=== PATIENT | female | born 1965 | race Caucasian/White ===

== ENCOUNTER → 2016-10-21 | Outpatient (CLI) | payer MEDICARE, OTHER ==
--- NOTE | 2016-10-22 08:48 | MM ---
Reason for exam: additional evaluation requested from prior study. Last mammogram was performed 1 year and 1 month ago. History: Patient has history of other cancer at age 25. Family history of breast cancer in paternal grandmother. Benign US right guided VAD of the right breast, April 19, 2011. Benign cyst aspiration of the left breast, December 07, 2004. Benign cyst aspiration of the right breast, December 07, 2004. Benign ultrasound-guided cyst aspiration of the left breast, December 07, 2004. Benign ultrasound-guided cyst aspiration of the right breast, December 07, 2004. Benign ultrasound-guided cyst aspiration of the right breast, December 07, 2004. Benign ultrasound-guided cyst aspiration of the right breast, May 17, 2004. Benign ultrasound-guided cyst aspiration of the right breast, May 17, 2004. Benign excisional biopsy of the left breast, October 22, 2001. 5 cyst aspirations of the left breast. Excisional biopsy of the left breast. Physical Findings: Nurse Summary: 0.5cm nodule in the right breast at 12 o'clock and 6 o'clock and a 0.5cm nodule in the left breast at 12 o'clock (nurse dw). MG 3D Diag Mammo W/Cad NOAM Bilateral CC and MLO view(s) were taken. Prior study comparison: September 12, 2015, bilateral MG 3d diag mammo w/cad NOAM. February 17, 2014, bilateral MG diagnostic mammo w CAD NOAM. The breast tissue is extremely dense which could obscure a lesion on mammography. There are multiple nodules bilaterally. These results were verbally communicated with the patient and result sheet given to the patient on 10/21/16. ASSESSMENT: Incomplete: need additional imaging evaluation, BI-RAD 0 RECOMMENDATION: Ultrasound of both breasts.
--- NOTE | 2016-10-22 09:01 | USB ---
Reason for exam: additional evaluation requested from abnormal screening. History: Patient has history of other cancer at age 25. Family history of breast cancer in paternal grandmother. Benign US right guided VAD of the right breast, April 19, 2011. Benign cyst aspiration of the left breast, December 07, 2004. Benign cyst aspiration of the right breast, December 07, 2004. Benign ultrasound-guided cyst aspiration of the left breast, December 07, 2004. Benign ultrasound-guided cyst aspiration of the right breast, December 07, 2004. Benign ultrasound-guided cyst aspiration of the right breast, December 07, 2004. Benign ultrasound-guided cyst aspiration of the right breast, May 17, 2004. Benign ultrasound-guided cyst aspiration of the right breast, May 17, 2004. Benign excisional biopsy of the left breast, October 22, 2001. 5 cyst aspirations of the left breast. Excisional biopsy of the left breast. US Breast BILAT Right breast ultrasound including all four quadrants, the retroareolar region and axilla demonstrates a 0.9 x 0.6 x 0.7cm oval, mixed, hypoechoic lesion seen on previous at 12 o'clock, a 0.7 x 0.8 x 0.7cm oval, solid, hypoechoic lesion seen on previous at 12 o'clock, a 0.4cm oval, probable lymph node at 9 o'clock, a 0.6 x 0.5 x 0.5cm oval, cystic lesion at 11 o'clock and a 0.6 x 0.6 x 0.6cm oval, cystic lesion at 11 o'clock. Left breast ultrasound including all four quadrants, the retroareolar region and axilla demonstrates a 2.5 x 1.1 x 2.1cm oval, cystic lesion seen on previous at 12 o'clock, a 0.8 x 0.6 x 0.5cm cystic lesion seen on previous at 1 o'clock and a 1.1 x 0.5 x 0.9cm lobulated, solid lesion at 9 o'clock, new. These results were verbally communicated with the patient and result sheet given to the patient on 10/21/16. ASSESSMENT: Suspicious, BI-RAD 4 RECOMMENDATION: Ultrasound core biopsy of both breasts. (12 o'clock right breast x 2) (9 o'clock left breast) Called with mammographic findings and has scheduled an appointment for the patient for 11/07/16 at 9:[address] Jacob. Biopsy scheduled for 11/01/16 at 8 o'clock. PRELIMINARY REPORT CALLED AND FAXED TO DR. JACOB ON 10/22/16 AT 300/TP.
== END | disposition home or self-care (01) ==
LOC: RADMAMWWP 09:21
PROVIDERS: ATTEND Surgery
DX: N60.09 Solitary cyst of unspecified breast (principal); R92.2 Inconclusive mammogram
CPT/HCPCS: 76641; G0204; G0279

== ENCOUNTER → 2016-11-01 | Day surgery (SDC) | payer MEDICARE, OTHER ==
[~2016-11-01] MED LIST: BACITRACIN OINT 1 EACH PACKET TOPICAL ONE; LIDOCAINE 1% INJ 10MG/ML (20 ML MDV) ONE; LIDOCAINE 1%-EPI 1:100,000 20 ML VIAL ONE; SODIUM BICARB 4% 5 ML VIAL (0.48 MEQ/ML) ONE
--- NOTE | 2016-11-01 11:51 | USB ---
EXAMINATION TYPE: US breast aspiration ea add RT DATE OF EXAM: 11/01/2016 11:42 AM COMPARISON: Previous study dated 10/21/2016. CLINICAL HISTORY: R92.8,ABN MAMM. PHYSICIAN DOCK SUPERINTENDENT: Dr. Howard. PROCEDURE: Using standard sterile technique and ultrasound guidance 2 lesions within the right breast were localized. 1% buffered Xylocaine with and without epinephrine was used for local anesthesia. Both lesions were 12:00 in the right breast. Both lesions were aspirated for scant amount of cloudy fluid. Both lesions largely resolved. A clip was placed in both sites. The patient tolerated the procedure well. Estimated blood loss was less than 2 cc. Pathology is pending. IMPRESSION: Successful cyst aspiration of 2 lesions in the 12:00 position of the right breast. Pathology Results: Benign BREAST, RIGHT, 1:00-2:00, FINE NEEDLE ASPIRATE: DUCT EPITHELIAL CELLS AND MACROPHAGES CONSISTENT WITH FIBROCYSTIC CHANGE. RECOMMEND CLINICAL AND IMAGING CORRELATION AND FOLLOW UP INDICATED. Recommendation Follow up ultrasound of the right breast in 6 months. MOUSTAPHAD
--- NOTE | 2016-11-01 11:51 | USB ---
EXAMINATION TYPE: US breast aspiration ea add RT DATE OF EXAM: 11/01/2016 11:42 AM COMPARISON: Previous study dated 10/21/2016. CLINICAL HISTORY: R92.8,ABN MAMM. PHYSICIAN HISTOTECHNICIAN: Dr. Howard. PROCEDURE: Using standard sterile technique and ultrasound guidance 2 lesions within the right breast were localized. 1% buffered Xylocaine with and without epinephrine was used for local anesthesia. Both lesions were 12:00 in the right breast. Both lesions were aspirated for scant amount of cloudy fluid. Both lesions largely resolved. A clip was placed in both sites. The patient tolerated the procedure well. Estimated blood loss was less than 2 cc. Pathology is pending. IMPRESSION: Successful cyst aspiration of 2 lesions in the 12:00 position of the right breast. Pathology Results: Benign BREAST, RIGHT, 1:00-2:00, FINE NEEDLE ASPIRATE: DUCT EPITHELIAL CELLS AND MACROPHAGES CONSISTENT WITH FIBROCYSTIC CHANGE. RECOMMEND CLINICAL AND IMAGING CORRELATION AND FOLLOW UP INDICATED. Recommendation Follow up ultrasound of the right breast in 6 months. MOUSTAPHAD
--- NOTE | 2016-11-01 11:53 | USB ---
EXAMINATION TYPE: US biopsy breast VAD LT DATE OF EXAM: 11/01/2016 11:42 AM CLINICAL HISTORY: R92.8 ABN MAMMO. TECHNIQUE: Ultrasound guided core biopsy of the left breast. COMPARISON: Previous ultrasound dated 10/21/2016. FINDINGS: The procedure of ultrasound guided core biopsy was explained to the patient. Benefits, alternatives, and risks were discussed. An informed consent was then obtained. The patient was placed in supine positioning for imaging and for the procedure. The overlying skin was prepped and draped in usual sterile fashion. Lidocaine buffered with bicarbonate was used as anesthetic into the skin and subcutaneous tissue up to area of concern in the left breast. Under ultrasound guidance, a 12-gauge vacuum assisted biopsy gun device was used to obtain 10 core samples. Following this, a biopsy clip was left in lesion. The patient tolerated the procedure well without any immediate complication. The patient was kept in the radiology department for short stay after the procedure and then discharged home in stable condition. Pathology is pending. IMPRESSION: Successful, uncomplicated ultrasound guided core biopsy of area of concern in the left breast, full pathology results to follow. Pathology Results: Benign BREAST, LEFT, CORE BIOPSY: FIBROCYSTIC CHANGE (STROMAL FIBROSIS, CYST FORMATION , APOCRINE METAPLASIA, ADENOSIS, MILE DUCT HYPERPLASIA AND CALCIFICATIONS) WITH FIBROADENOMATOID FEATURES. Recommendation Follow up ultrasound of the left breast in 6 months. ARLENE
--- NOTE | 2016-11-01 12:07 | MM ---
EXAMINATION TYPE: Ultrasound cyst aspiration left and VAD biopsy right DATE OF EXAM: 11/01/2016 11:42 AM COMPARISON: Previous study dated 10/21/2016. CLINICAL HISTORY: R92.8,ABN MAMM. PHYSICIAN PETROLOGIST: Dr. Howard. PROCEDURE: Using standard sterile technique and ultrasound guidance 2 lesions within the right breast were localized. 1% buffered Xylocaine with and without epinephrine was used for local anesthesia. Jac th lesions were 12:00 in the right breast. Both lesions were aspirated for scant amount of cloudy flu id. Both lesions largely resolved. A clip was placed in both sites. Subsequently a VAD biopsy was performed in lesion in the 9:00 position of the left breast measuring 1 .1 cm. 10 cores were obtained. Clip was deposited. The patient tolerated the procedure well. Estimated blood loss was less than 5 cc. Pathology is pending. Postprocedure bilateral mammogram was obtained to confirm clip placement. IMPRESSION: Successful bilateral ultrasound-guided breast procedures.
== END ==
LOC: RADUSWWP 08:49
PROVIDERS: ATTEND Surgery
DX: N60.32 Fibrosclerosis of left breast (principal); N60.02 Solitary cyst of left breast; N60.82 Other benign mammary dysplasias of left breast; N60.22 Fibroadenosis of left breast; N60.92 Unspecified benign mammary dysplasia of left breast; R92.8 Other abnormal and inconclusive findings on diagnostic imaging of breast; N64.89 Other specified disorders of breast; Z88.2 Allergy status to sulfonamides; Z88.6 Allergy status to analgesic agent
CPT/HCPCS: 88305; 88173; 88342; 88341; 19000; 19001; 19083; G0204; A4648; J2001; 76942

== ENCOUNTER 2016-11-07 20:06 | Inpatient (IN) | payer MEDICARE, MEDICAID ==
[2016-11-07] MEDS ORDERED: DIPH,PERTUS(ACELL)TETVAC-LF 0.5 ML VIAL IM ONE (20:26)
--- NOTE | 2016-11-07 20:41 | ED ---
General Adult HPI - General Chief complaint: Psychiatric Symptoms Stated complaint: suicidal Time Seen by Provider: 11/07/16 20:21 Source: patient Mode of arrival: ambulatory Limitations: no limitations - History of Present Illness Initial comments: This is a 51-year-old female with a history of depression and suicide attempts in the past presents emergency department for tended suicide. The patient states that she has been very depressed because of a lot of stressors around in her life. She is being worked up for cancer and also has to take care of her father who has Alzheimer's. She states that today she felt she couldn't handle it so she tried to cut her wrist with a padded box sewer. She states that the blade was dull was not able to do it she decided to come to the emergency department for help. She has been admitted to inpatient psych previously however the last admission was 4 years ago and she states that she's been compliant with her medications. She follows up with [facility]. She denies any physical complaints. - Related Data Home Medications Medication Instructions Recorded Confirmed LORazepam [Ativan] 1 mg PO TID PRN 03/14/14 11/07/16 ARIPiprazole [Abilify] 10 mg PO HS 12/11/15 11/07/16 Vilazodone Hydrochloride [Viibryd] 40 mg PO HS 12/11/15 11/07/16 Dextroamphetamine/Amphetamine 20 mg PO QAM PRN 11/07/16 11/07/16 [Adderall Xr] Metoprolol Succinate [Toprol XL] 25 mg PO HS 11/07/16 11/07/16 Nicotine 21Mg/24Hr Patch [Habitrol 1 patch TRANSDERM DAILY 11/07/16 11/07/16 21Mg/24Hr Patch] Allergies Allergy/AdvReac Type Severity Reaction Status Date / Time peanut Allergy Unknown Verified 11/07/16 20:53 sumatriptan [From Imitrex] Allergy Swelling Verified 11/07/16 20:53 sumatriptan succinate Allergy Swelling Verified 11/07/16 20:53 [From Imitrex] Review of Systems ROS Statement: Those systems with pertinent positive or pertinent negative responses have been documented in the HPI. ROS Other: All systems not noted in ROS Statement are negative. Past Medical History Past Medical History: Musculoskeletal Disorder, Seizure Disorder Additional Past Medical History / Comment(s): LAST SEIZURE 2008, NOT CURRENTLY ON ANY MEDICATION, DDD WITH BACK PAIN., PRE-CANCER CERVICAL. History of Any Multi-Drug Resistant Organisms: None Reported Past Surgical History: Breast Surgery, Cholecystectomy, Orthopedic Surgery, Tubal Ligation, Uterine Ablation Additional Past Surgical History / Comment(s): twisted ureter, LEFT ELBOW SX, LEFT CARPAL TUNNEL Past Anesthesia/Blood Transfusion Reactions: No Reported Reaction Past Psychological History: Depression, Panic Disorder Smoking Status: Current every day smoker Past Alcohol Use History: Occasional Additional Past Alcohol Use History / Comment(s): SMOKED ON AND OFF SINCE AGE 18 , 1PPD Past Drug Use History: None Reported - Past Family History Father Family Medical History: Cancer Additional Family Medical History / Comment(s): SKIN CA General Exam - General Exam Comments Initial Comments: Constitutional: Awake alert Appears comfortable Head: Normocephalic atraumatic Eyes: no conjunctival injection No scleral icterus EOMI Neck: No JVD Supple Heart: Regular rate rhythm normal S1-S2 no murmurs Lungs: Clear to auscultation bilaterally No wheezing No rales Abdomen: Soft nondistended nontender Extremities: Non edematous DP pulses intact Radial pulses intact, abrasion to the left medial wrist Neuro: A&Ox3 No focal neurologic deficits Psych: Appropriate mood and affect Limitations: no limitations Course Vital Signs 11/07/16 20:16 Temperature 98.3 F Pulse Rate 100 Respiratory 18 Rate Blood Pressure 135/76 O2 Sat by Pulse 100 Oximetry Medical Decision Making - Medical Decision Making Patient was evaluated by EPS and they state that she requires admission. They will place the admission orders. - Lab Data Result diagrams: 11/07/16 20:45 11/07/16 20:45 Lab Results 11/07/16 11/07/16 11/07/16 Range/Units 20:35 20:45 20:45 WBC 8.4 (3.8-10.6) k/uL RBC 4.31 (3.80-5.40) m/uL Hgb 13.4 (11.4-16.0) gm/dL Hct 40.4 (34.0-46.0) % MCV 93.8 (80.0-100.0) fL MCH 31.2 (25.0-35.0) pg MCHC 33.3 (31.0-37.0) g/dL RDW 12.3 (11.5-15.5) % Plt Count 383 (150-450) k/uL Neutrophils % 51 % Lymphocytes % 41 % Monocytes % 4 % Eosinophils % 2 % Basophils % 1 % Neutrophils # 4.3 (1.3-7.7) k/uL Lymphocytes # 3.5 (1.0-4.8) k/uL Monocytes # 0.3 (0-1.0) k/uL Eosinophils # 0.1 (0-0.7) k/uL Basophils # 0.0 (0-0.2) k/uL Sodium 143 (137-145) mmol/L Potassium 3.7 (3.5-5.1) mmol/L Chloride 102 (98-107) mmol/L Carbon Dioxide 30 (22-30) mmol/L Anion Gap 11 mmol/L BUN 6 L (7-17) mg/dL Creatinine 0.67 (0.52-1.04) mg/dL Est GFR (MDRD) Af Amer >60 (>60 ml/min/1.73 sqM) Est GFR (MDRD) Non-Af >60 (>60 ml/min/1.73 sqM) Glucose 88 (74-99) mg/dL Calcium 10.1 (8.4-10.2) mg/dL Urine Color Yellow Urine Appearance Clear (Clear) Urine pH 6.0 (5.0-8.0) Ur Specific [place] 1.023 (1.001-1.035) Urine Protein Trace H (Negative) Urine Glucose (UA) Negative (Negative) Urine Ketones Negative (Negative) Urine Blood Small H (Negative) Urine Nitrite Negative (Negative) Urine Bilirubin Negative (Negative) Urine Urobilinogen 2.0 (<2.0) mg/dL Ur Leukocyte Esterase Small H (Negative) Urine RBC 19 H (0-5) /hpf Urine WBC 5 (0-5) /hpf Ur Squamous Epith Cells 1 (0-4) /hpf Urine Bacteria Occasional H (None) /hpf Urine Mucus Few H (None) /hpf Salicylates <1.0 mg/dL Urine Opiates Screen Not Detected (NotDetected) Ur Oxycodone Screen Not Detected (NotDetected) Urine Methadone Screen Not Detected (NotDetected) Ur Propoxyphene Screen Not Detected (NotDetected) Acetaminophen <10.0 ug/mL Ur Barbiturates Screen Not Detected (NotDetected) U Tricyclic Antidepress Not Detected (NotDetected) Ur Phencyclidine Scrn Not Detected (NotDetected) Ur Amphetamines Screen Not Detected (NotDetected) U Methamphetamines Scrn Not Detected (NotDetected) U Benzodiazepines Scrn Detected H (NotDetected) Urine Cocaine Screen Not Detected (NotDetected) U Marijuana (THC) Screen Not Detected (NotDetected) Disposition Clinical Impression: Suicidal ideation, Attempted suicide Disposition: [facility]MITT[facility] Condition: Stable
[2016-11-07 20:57] LABS: Appearance,Urine Clear (Clear); Bacteria,Urine Occasional /hpf; Bilirubin,Urine Negative (Negative); Glucose,Urine (UA) Negative (Negative); Ketones,Urine Negative (Negative); Leukocyte Esterase,Urine Small (Negative); Mucus,Urine Few /hpf; Nitrite,Urine Negative (Negative); Particle Count 5915; Protein,Urine Trace (Negative); RBC,Urine 19 /hpf (0-5); Specific Gravity,Urine 1.023 (1.001-1.035); Squamous Epithelial Cell,Urine 1 /hpf (0-4); UA Billing (MACRO vs. MICRO) MICRO; WBC,Urine 5 /hpf (0-5)
[2016-11-07 21:00] LABS: Basophils % (A) 1 %; CH 31.7; CHCM 33.9; Eosinophils # (A) 0.1 k/uL (0-0.7); Eosinophils % (A) 2 %; HCT 40.4 % (34.0-46.0); HDW 2.42; HGB 13.4 gm/dL (11.4-16.0); Luc # (Auto) 0.19; Luc % (Auto) 2; Lymphocytes # (A) 3.5 k/uL (1.0-4.8); Lymphocytes % (A) 41 %; MCH 31.2 pg (25.0-35.0); MCHC 33.3 g/dL (31.0-37.0); MCV 93.8 fL (80.0-100.0); Mean Platelet Volume 6.7; Monocytes # (A) 0.3 k/uL (0-1.0); Monocytes % (A) 4 %; Neutrophils # (A) 4.3 k/uL (1.3-7.7); Neutrophils % (A) 51 %; RBC 4.31 m/uL (3.80-5.40); RDW 12.3 % (11.5-15.5); WBC 8.4 k/uL (3.8-10.6); WBC (Perox) 8.46
[2016-11-07 21:17] LABS: Acetaminophen <10.0 ug/mL; Anion Gap 11 mmol/L; Blood Urea Nitrogen 6 mg/dL (7-17); Calcium 10.1 mg/dL (8.4-10.2); Carbon Dioxide 30 mmol/L (22-30); Chloride 102 mmol/L (98-107); Glucose 88 mg/dL (74-99); Non-African American GFR(MDRD) >60 (>60 ml/min/1.73 sqM); Potassium 3.7 mmol/L (3.5-5.1); Salicylate <1.0 mg/dL; Sodium 143 mmol/L (137-145)
[2016-11-08 00:08] VITALS: BMI 24.6
[2016-11-08] MEDS ORDERED: ACETAMINOPHEN TAB 325 MG TAB PO PRN (00:45)
[2016-11-08] MEDS ORDERED: MAG HYDROX/AL HYDROX/SIMETH 30 ML CUP PO PRN (00:45)
[2016-11-08] MEDS: METOPROLOL SUCCINATE (ER) 25 MG TAB.ER.24H PO SCH ×2 (01:20→21:12)
[2016-11-08] MEDS: ARIPiprazole 10 MG TAB PO SCH ×2 (01:21→21:12)
[2016-11-08] MEDS: NICOTINE 21MG/24HR PATCH TRANSDERM SCH (09:20)
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
[2016-11-08] MEDS: LORazepam 1 MG TAB PO PRN ×2 (15:36→21:59)
--- NOTE | 2016-11-08 16:27 | P.CONS ---
History of Present Illness - Reason for Consult Consult date: 11/08/16 medical management - History of Present Illness This is a 51-year-old female. Her primary care physician is [facility]. She has a past medical history of hypertension, seizure disorder last one in 2008, degenerative disc disease of the back and neck currently going to PT for left hip pain, precancerous changes to the cervical, depression, PTSD, panic disorder, tobacco use and dependence. Her last hospitalization to the mental health unit was 4 years ago. She follows with [facility]. She has a long history of depression which she states is that her whole life and has been having increased stressors and more depression. Patient tried to cut her wrists with a dull slip box changer. When this didn't work, she came in to the hospital. Patient presented to [facility] emergency center. Urinalysis clear, leukoesterase small, RBCs 19, wbc's 5. Salicylate level less than 1 and a similar event level less than 10. Urine drug screen was positive for benzodiazepines. Patient has been admitted to the mental health unit.she states that she has an appointment with the land planner next week to have an echocardiogram as her heart rate was 140 bpm and her last checkup. Review of Systems All systems: negative Constitutional: Denies chills, Denies fever Eyes: denies blurred vision, denies pain Ears, nose, mouth and throat: Denies headache, Denies sore throat Cardiovascular: Denies chest pain, Denies shortness of breath Respiratory: Denies cough Gastrointestinal: Denies abdominal pain, Denies diarrhea, Denies nausea, Denies vomiting Genitourinary: Denies dysuria, Denies hematuria Musculoskeletal: Denies myalgias Integumentary: Denies pruritus, Denies rash Neurological: Denies numbness, Denies weakness Psychiatric: Reports depression, Reports hopelessness, Reports suicidal ideation , Denies anxiety Endocrine: Denies fatigue, Denies weight change Past Medical History Past Medical History: Musculoskeletal Disorder, Seizure Disorder Additional Past Medical History / Comment(s): LAST SEIZURE 2008, NOT CURRENTLY ON ANY MEDICATION, DDD WITH BACK and NECK PAIN., PRE-CANCER CERVICAL. fibrocystic breast bilaterally under the care of Dr. Jacob History of Any Multi-Drug Resistant Organisms: None Reported Past Surgical History: Breast Surgery, Cholecystectomy, Orthopedic Surgery, Tubal Ligation, Uterine Ablation Additional Past Surgical History / Comment(s): twisted ureter, LEFT ELBOW SX, LEFT CARPAL TUNNEL, LEFT SHOULDER rotator cuffSX TWICE, Biopsy of bilaterial breast 10/2016 finding fibrocystic disease, colonoscopy 5 years ago that was normal Past Anesthesia/Blood Transfusion Reactions: No Reported Reaction Past Psychological History: Depression, Panic Disorder, PTSD Smoking Status: Current every day smoker Past Alcohol Use History: Occasional Additional Past Alcohol Use History / Comment(s): she smokes one and half packs per day and started when she was 17 years old. She states she has been using a nicotine patch for the past 8 days. She denies any medical marijuana, marijuana or street drug use. She drinks alcohol on a rare basis. Past Drug Use History: None Reported - Past Family History Father Family Medical History: Cancer, Coronary Artery Disease (CAD), Dementia Additional Family Medical History / Comment(s): father is alive at age 85 with history of Alzheimer's disease, coronary artery disease status post post 4 vessel CABG, CVA, SKIN CA Mother History Unknown: Yes Additional Family Medical History / Comment(s): Mother is alive at age 83 with history of hypertension. Son(s) Additional Family Medical History / Comment(s): patient has 2 sons and one has Depression Daughter(s) Family Medical History: No Reported History Additional Family Medical History / Comment(s): Patient has one daughter with no major medical problems. Brother(s) Additional Family Medical History / Comment(s): patient has 5 brothers. One at age 27 from suicide. One has coronary artery disease status post 2 vessel CABG. Medications and Allergies Home Medications Medication Instructions Recorded Confirmed Type LORazepam [Ativan] 1 mg PO TID PRN 03/14/14 11/07/16 History ARIPiprazole [Abilify] 10 mg PO HS 12/11/15 11/07/16 History Vilazodone Hydrochloride [Viibryd] 40 mg PO HS 12/11/15 11/07/16 History Dextroamphetamine/Amphetamine 20 mg PO QAM PRN 11/07/16 11/07/16 History [Adderall Xr] Metoprolol Succinate [Toprol XL] 25 mg PO HS 11/07/16 11/07/16 History Nicotine 21Mg/24Hr Patch [Habitrol 1 patch TRANSDERM DAILY 11/07/16 11/07/16 History 21Mg/24Hr Patch] Allergies Allergy/AdvReac Type Severity Reaction Status Date / Time peanut Allergy Swelling Verified 11/08/16 00:16 sumatriptan [From Imitrex] Allergy Swelling Verified 11/08/16 00:16 sumatriptan succinate Allergy Swelling Verified 11/08/16 00:16 [From Imitrex] Physical Exam Vitals: Vital Signs Temp Pulse Pulse Resp BP BP Pulse Ox 11/08/16 01:26 98 16 140/92 11/07/16 23:57 97.3 F L 96 16 139/98 100 11/07/16 23:38 97.6 F 80 16 145/80 98 Intake and Output 11/07/16 11/08/16 11/08/16 22:59 06:59 14:59 Other: Weight 63.134 kg Gen: This is a 51-year-old female. She is cooperative and appears to be in no acute distress. HEENT: Head is atraumatic, normocephalic. Pupils equal, round. Sclerae is anicteric. NECK: Supple. No JVD. No lymphadenopathy. No thyromegaly. LUNGS: Clear to auscultation. No wheezes or rhonchi. No intercostal retractions. HEART: Regular rate and rhythm. No murmur. ABDOMEN: Soft. Bowel sounds are present. No masses. No tenderness. EXTREMITIES: No pedal edema. No calf tenderness. NEUROLOGICAL: Patient is awake, alert and oriented x3. Cranial nerves 2 through 12 are grossly intact. Results CBC & Chem 7: 11/07/16 20:45 11/07/16 20:45 Assessment and Plan Plan: 1. Depression with suicidal ideation. Patient admitted to the mental health unit. Continue current plan of care. 2. Tobacco use and dependence. Continue nicotine patch 3. Hypertension. Continue metoprolol succinate 25 mg at bedtime. 4. History of seizure disorder with none since 2008, stable. 5. Degenerative disc disease of the back and neck, stable. Continue Tylenol for pain. Impression and plan of care have been directed as dictated by the signing physician. Sharri Gillespie nurse practitioner acting as scribe for signing physician. Time with Patient: Greater than 30
[2016-11-08] MEDS: VIIBRYD 40 MG PO SCH (21:12)
[2016-11-09] MEDS: NICOTINE 21MG/24HR PATCH TRANSDERM SCH (08:49)
[2016-11-09] MEDS: LORazepam 1 MG TAB PO PRN ×2 (09:18→21:02)
--- NOTE | 2016-11-09 13:07 | P.PN ---
Progress Note - Text Interval history: Patient is seen in cross coverage today for Dr. Jones. She reports that she is feeling better today. She is continued on Viibryd and Abilify. She reports that she had stressors of taking care of her father with Alzheimer's as well as other family stressors and also with stopping smoking. Prior to admission she had been feeling depressed and was having some thoughts of suicide. She does not voice any adverse psychotropic medication side effects and says her current medications have been helpful for her. Mental status exam: She is alert and cooperative with the interview. Her speech is fluent, not rapid or pressured. Her thought processes are organized. Her mood she describes some depression but it is doing better today. She denies any thoughts of suicide. She does not voice any thoughts of harm to others. No evidence of psychosis or agitation. Plan: We'll maintain current psychotropic medications. We'll monitor her mood and monitor regarding any suicidal ideations. Continue to cover this patient for Dr. Jones through the weekend.
[2016-11-09] MEDS: MAGNESIUM HYDROXIDE 2,400 MG/10 ML CUP PO PRN (15:41)
[2016-11-09] MEDS: METOPROLOL SUCCINATE (ER) 25 MG TAB.ER.24H PO SCH (21:01)
[2016-11-09] MEDS: VIIBRYD 40 MG PO SCH (21:01)
[2016-11-09] MEDS: ARIPiprazole 10 MG TAB PO SCH (21:01)
[2016-11-10] MEDS: NICOTINE 21MG/24HR PATCH TRANSDERM SCH (08:45)
[2016-11-10] MEDS: LORazepam 1 MG TAB PO PRN ×2 (09:22→22:08)
[2016-11-10] MEDS: MAGNESIUM HYDROXIDE 2,400 MG/10 ML CUP PO PRN (10:48)
--- NOTE | 2016-11-10 17:34 | P.PN ---
Progress Note - Text Interval history: Patient is seen in cross coverage today for Dr. Jones. She continues to report improved mood. Sleep and appetite seem to be doing well. She describes that her stress level is diminished. She plans on continuing to work with her counselor and her peer support person. She does feel like she would be ready for discharge tomorrow. Mental status exam: She is alert and cooperative with the interview. Her speech is fluent, not rapid or pressured. Thought processes organized. Her mood overall is improved. She denies any thoughts of harm to self or others. She does not verbalize any hallucinations or delusions. She does not show any agitation. Plan: Patient be maintained on current psychotropic medication regimen. Dr. Jones will resume her care starting tomorrow.
[2016-11-10] MEDS: VIIBRYD 40 MG PO SCH (21:12)
[2016-11-10] MEDS: METOPROLOL SUCCINATE (ER) 25 MG TAB.ER.24H PO SCH (21:12)
[2016-11-10] MEDS: ARIPiprazole 10 MG TAB PO SCH (21:12)
[2016-11-11 06:47] VITALS: RESP 16; TEMP 97.8
[2016-11-11] MEDS: LORazepam 1 MG TAB PO PRN (08:12)
[2016-11-11 08:14] VITALS: BP 109/69; PULSE 87
[2016-11-11] MEDS: NICOTINE 21MG/24HR PATCH TRANSDERM SCH (09:06)
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
== END 2016-11-11 12:51 | disposition home or self-care (01) | DRG 885 ==
LOC: EC 20:06 → 3MHU 23:31
PROVIDERS: ADMIT Psychiatry & Neurology Psychiatry; ATTEND Psychiatry & Neurology Psychiatry
DX: F33.9 Major depressive disorder, recurrent, unspecified (principal); G40.909 Epilepsy, unspecified, not intractable, without status epilepticus; I10 Essential (primary) hypertension; F41.0 Panic disorder [episodic paroxysmal anxiety]; F34.1 Dysthymic disorder; F43.10 Post-traumatic stress disorder, unspecified; F43.21 Adjustment disorder with depressed mood; F43.25 Adjustment disorder with mixed disturbance of emotions and conduct; N60.12 Diffuse cystic mastopathy of left breast; N60.11 Diffuse cystic mastopathy of right breast; F19.21 Other psychoactive substance dependence, in remission; F17.200 Nicotine dependence, unspecified, uncomplicated; S61.512A Laceration without foreign body of left wrist, initial encounter; Z79.899 Other long term (current) drug therapy; Z81.8 Family history of other mental and behavioral disorders; Z91.410 Personal history of adult physical and sexual abuse; Z91.5 Personal history of self-harm; Z88.8 Allergy status to other drugs, medicaments and biological substances; Z91.018 Allergy to other foods; M50.30 Other cervical disc degeneration, unspecified cervical region; G89.29 Other chronic pain; N87.9 Dysplasia of cervix uteri, unspecified; X78.1XXA Intentional self-harm by knife, initial encounter
CPT/HCPCS: 36415; 80048; 80306; 81001; 81025; 82075; 83520; 84443; 85025; 90471; 90715; 99285

== ENCOUNTER → 2017-04-03 | Outpatient (CLI) | payer MEDICARE, MEDICAID ==
--- NOTE | 2017-04-03 11:22 | MM ---
Reason for exam: follow-up at short interval from prior study. Last mammogram was performed 5 months ago. History: Patient has history of other cancer at age 25. Family history of breast cancer in paternal grandmother. Benign US breast aspiration ea add RT of the right breast, November 01, 2016. Benign US biopsy breast VAD LT of the left breast, November 01, 2016. Benign US biopsy breast VAD RT of the right breast, November 01, 2016. Benign US right guided VAD of the right breast, April 19, 2011. Benign cyst aspiration of the left breast, December 07, 2004. Benign cyst aspiration of the right breast, December 07, 2004. Benign ultrasound-guided cyst aspiration of the left breast, December 07, 2004. Benign ultrasound-guided cyst aspiration of the right breast, December 07, 2004. Benign ultrasound-guided cyst aspiration of the right breast, December 07, 2004. Benign ultrasound-guided cyst aspiration of the right breast, May 17, 2004. Benign ultrasound-guided cyst aspiration of the right breast, May 17, 2004. Benign excisional biopsy of the left breast, October 22, 2001. 5 cyst aspirations of the left breast. Excisional biopsy of the left breast. Physical Findings: Nurse did not find any significant physical abnormalities on exam. MG 3D Diag Mammo W/Cad NOAM Bilateral CC and MLO view(s) were taken. Prior study comparison: November 01, 2016, bilateral MG diagnostic johnny BI wo CAD. October 21, 2016, bilateral MG 3d diag mammo w/cad NOAM. September 12, 2015, bilateral MG 3d diag mammo w/cad NOAM. February 17, 2014, bilateral MG diagnostic mammo w CAD NOAM. The breast tissue is heterogeneously dense. This may lower the sensitivity of mammography. No significant new findings when compared with previous films. These results were verbally communicated with the patient and result sheet given to the patient on 04/03/17. ASSESSMENT: Benign, BI-RAD 2 RECOMMENDATION: Routine screening mammogram of both breasts in 1 year.
--- NOTE | 2017-04-03 11:26 | USB ---
Reason for exam: follow-up at short interval from prior study. History: Patient has history of other cancer at age 25. Family history of breast cancer in paternal grandmother. Benign US breast aspiration ea add RT of the right breast, November 01, 2016. Benign US biopsy breast VAD LT of the left breast, November 01, 2016. Benign US biopsy breast VAD RT of the right breast, November 01, 2016. Benign US right guided VAD of the right breast, April 19, 2011. Benign cyst aspiration of the left breast, December 07, 2004. Benign cyst aspiration of the right breast, December 07, 2004. Benign ultrasound-guided cyst aspiration of the left breast, December 07, 2004. Benign ultrasound-guided cyst aspiration of the right breast, December 07, 2004. Benign ultrasound-guided cyst aspiration of the right breast, December 07, 2004. Benign ultrasound-guided cyst aspiration of the right breast, May 17, 2004. Benign ultrasound-guided cyst aspiration of the right breast, May 17, 2004. Benign excisional biopsy of the left breast, October 22, 2001. 5 cyst aspirations of the left breast. Excisional biopsy of the left breast. US Breast BILAT Right breast ultrasound includes all four quadrants, the retroareolar region and axilla. Finding demonstrates a 0.5 x 0.4 x 0.3cm oval, hypoechoic lesion at 12 o'clock, a 0.3 x 0.2 x 0.3cm round, cystic lesion at 9 o'clock, a 0.4 x 0.3 x 0.3cm oval, cystic lesion at 11 o'clock, a 0.3 x 0.3 x 0.2cm oval, cystic lesion at 11 o'clock, a 0.6 x 0.5 x 0.5cm round, cystic lesion at 11 o'clock, duct ectasia at the nipple and a 0.5 x 0.5 x 0.4cm node at 9 o'clock. Left breast ultrasound includes all four quadrants, the retroareolar region and axilla. Finding demonstrates a 1.0 x 0.9 x 0.7cm oval, cystic lesion at 12 o'clock, a 0.5 x 0.4 x 0.4cm oval, hypoechoic lesion at 1 o'clock, a 0.6 x 0.5 x 0.4cm oval, cystic lesion at 2 o'clock, a 1.1 x 0.8 x 0.4cm oval, hypoechoic lesion at 9 o'clock and ductal ectasia at the nipple. These results were verbally communicated with the patient and result sheet given to the patient on 04/03/17. ASSESSMENT: Benign, BI-RAD 2 RECOMMENDATION: Routine screening mammogram of both breasts in 1 year.
== END | disposition home or self-care (01) ==
LOC: RADMAMWWP 08:38
PROVIDERS: ATTEND Surgery
DX: R92.8 Other abnormal and inconclusive findings on diagnostic imaging of breast (principal)
CPT/HCPCS: 76641; G0204; G0279

== ENCOUNTER 2017-06-11 11:23 | Inpatient (IN) | payer MEDICARE, MEDICAID ==
--- NOTE | 2017-06-11 11:33 | ED ---
General Adult HPI - General Chief complaint: Psychiatric Symptoms Stated complaint: Suicidal Time Seen by Provider: 06/11/17 11:32 Source: patient, RN notes reviewed, old records reviewed Mode of arrival: ambulatory Limitations: no limitations - History of Present Illness Initial comments: This is a 51-year-old female the ER for mental health evaluation. Patient has been under increased and significant amount of stress as of late. Patient recently lost family member is close to and is causing gluteal strength in her life. She does admit to thoughts of suicide - Related Data Home Medications Medication Instructions Recorded Confirmed Vilazodone HCl [Viibryd] 40 mg PO DAILY 12/11/15 06/11/17 Metoprolol Succinate [Toprol XL] 25 mg PO HS 11/07/16 06/11/17 Cholecalciferol [Vitamin D3] 5,000 unit PO DAILY 06/11/17 06/11/17 Fluticasone Nasal [place] [Flonase 1 - 2 spray EA NOSTRIL DAILY PRN 06/11/1706/11 Nasal [place]] Ibuprofen [Motrin] 800 mg PO Q8H PRN 06/11/17 06/11/17 Loratadine [Claritin] 10 mg PO DAILY PRN 06/11/17 06/11/17 Omeprazole [PriLOSEC] 20 mg PO AC-BRKFST 06/11/17 06/11/17 clonazePAM [KlonoPIN] 1 mg PO BID@0800,1400 06/11/17 06/11/17 clonazePAM [KlonoPIN] 2 mg PO HS 06/11/17 06/11/17 Allergies Allergy/AdvReac Type Severity Reaction Status Date / Time peanut Allergy Swelling Verified 06/11/17 11:45 sumatriptan [From Imitrex] Allergy Swelling Verified 06/11/17 11:45 sumatriptan succinate Allergy Swelling Verified 06/11/17 11:45 [From Imitrex] Review of Systems ROS Statement: Those systems with pertinent positive or pertinent negative responses have been documented in the HPI. ROS Other: All systems not noted in ROS Statement are negative. Past Medical History Past Medical History: Musculoskeletal Disorder, Seizure Disorder Additional Past Medical History / Comment(s): LAST SEIZURE 2008, NOT CURRENTLY ON ANY MEDICATION, DDD WITH BACK and NECK PAIN., PRE-CANCER CERVICAL. fibrocystic breast bilaterally under the care of Dr. Jacob History of Any Multi-Drug Resistant Organisms: None Reported Past Surgical History: Breast Surgery, Cholecystectomy, Orthopedic Surgery, Tubal Ligation, Uterine Ablation Additional Past Surgical History / Comment(s): twisted ureter, LEFT ELBOW SX, LEFT CARPAL TUNNEL, LEFT SHOULDER rotator cuffSX TWICE, Biopsy of bilaterial breast 10/2016 finding fibrocystic disease, colonoscopy 5 years ago that was normal Past Anesthesia/Blood Transfusion Reactions: No Reported Reaction Past Psychological History: Depression, Panic Disorder, PTSD Smoking Status: Current every day smoker Past Alcohol Use History: Occasional Past Drug Use History: None Reported - Past Family History Father Family Medical History: Cancer, Coronary Artery Disease (CAD), Dementia Additional Family Medical History / Comment(s): father is alive at age 85 with history of Alzheimer's disease, coronary artery disease status post post 4 vessel CABG, CVA, SKIN CA Mother History Unknown: Yes Additional Family Medical History / Comment(s): Mother is alive at age 83 with history of hypertension. Son(s) Additional Family Medical History / Comment(s): patient has 2 sons and one has Depression Daughter(s) Family Medical History: No Reported History Additional Family Medical History / Comment(s): Patient has one daughter with no major medical problems. Brother(s) Additional Family Medical History / Comment(s): patient has 5 brothers. One at age 27 from suicide. One has coronary artery disease status post 2 vessel CABG. General Exam Limitations: no limitations General appearance: alert, in no apparent distress Head exam: Present: atraumatic, normocephalic, normal inspection Eye exam: Present: normal appearance, PERRL, EOMI. Absent: scleral icterus, conjunctival injection, periorbital swelling ENT exam: Present: normal exam, mucous membranes moist Neck exam: Present: normal inspection. Absent: tenderness, meningismus, lymphadenopathy Respiratory exam: Present: normal lung sounds bilaterally. Absent: respiratory distress, wheezes, rales, rhonchi, stridor Cardiovascular Exam: Present: regular rate, normal rhythm, normal heart sounds. Absent: systolic murmur, diastolic murmur, rubs, gallop, clicks GI/Abdominal exam: Present: soft, normal bowel sounds. Absent: distended, tenderness, guarding, rebound, rigid Extremities exam: Present: normal inspection, full ROM, normal capillary refill. Absent: tenderness, pedal edema, joint swelling, calf tenderness Back exam: Present: normal inspection Neurological exam: Present: alert, oriented X3, CN II-XII intact Psychiatric exam: Present: normal affect, normal mood Skin exam: Present: warm, dry, intact, normal color. Absent: rash Course Vital Signs 06/11/17 11:28 Temperature 98.3 F Pulse Rate 85 Respiratory 18 Rate Blood Pressure 144/95 O2 Sat by Pulse 97 Oximetry - Reevaluation(s) Reevaluation #1: 06/11/17 12:01 Patient's medically clear for psychiatric evaluation Medical Decision Making - Medical Decision Making 51 seen at ER for psychiatric evaluation. Patient will be admitted for inpatient psychiatric evaluation and treatment - Lab Data Result diagrams: 06/12/17 07:27 06/12/17 07:27 Lab Results 06/11/17 06/11/17 Range/Units 11:32 11:32 Urine Opiates Screen Negative Not Detected (Negative) ng/mL Ur Oxycodone Screen Not Detected (NotDetected) Urine Methadone Screen Negative Not Detected (Negative) ng/mL Ur Propoxyphene Screen Negative Not Detected (Negative) ng/mL Ur Barbiturates Screen Not Detected (NotDetected) Urine Barbiturates Negative (Negative) ng/mL U Tricyclic Antidepress Not Detected (NotDetected) Ur Phencyclidine Scrn Negative Not Detected (Negative) ng/mL Ur Amphetamine Screen Negative (Negative) ng/mL Ur Amphetamines Screen Not Detected (NotDetected) U Methamphetamines Scrn Not Detected (NotDetected) U Benzodiazepines Scrn Negative Detected H (Negative) ng/mL Urine Cocaine Screen Negative Not Detected (Negative) ng/mL U Cannabinoids Screen Negative (Negative) ng/mL U Marijuana (THC) Screen Not Detected (NotDetected) Urine Alcohol Negative (Negative) mg/dL Disposition Clinical Impression: Attempted suicide, Dysthymic disorder, Adjustment disorder with depressed mood Disposition: TRANSFER TO PSYCH HOSP/UNIT Condition: Fair
[2017-06-11] MEDS ORDERED: MAG HYDROX/AL HYDROX/SIMETH 30 ML CUP PO PRN (15:10)
[2017-06-11] MEDS ORDERED: MAGNESIUM HYDROXIDE 2,400 MG/10 ML CUP PO PRN (15:10)
[2017-06-11] MEDS ORDERED: clonazePAM 1 MG TAB PO PRN (15:12)
[2017-06-11 15:20] VITALS: BMI 27.1
[2017-06-11] MEDS ORDERED: NICOTINE 21MG/24HR PATCH TRANSDERM STA (15:55)
[2017-06-11] MEDS: METOPROLOL SUCCINATE (ER) 25 MG TAB.ER.24H PO SCH (20:50)
[2017-06-11 20:51] VITALS: RESP 16
[2017-06-12 07:56] LABS: Basophils # (A) 0.1 k/uL (0-0.2); Basophils % (A) 1 %; CHCM 32.9; Eosinophils # (A) 0.2 k/uL (0-0.7); Eosinophils % (A) 1 %; HCT 45.5 % (34.0-46.0); HDW 2.23; HGB 14.3 gm/dL (11.4-16.0); Luc % (Auto) 2; Lymphocytes # (A) 3.7 k/uL (1.0-4.8); Lymphocytes % (A) 32 %; MCH 30.8 pg (25.0-35.0); MCHC 31.5 g/dL (31.0-37.0); MCV 97.8 fL (80.0-100.0); Mean Platelet Volume 7.3; Monocytes # (A) 0.5 k/uL (0-1.0); Monocytes % (A) 5 %; Neutrophils # (A) 6.8 k/uL (1.3-7.7); Neutrophils % (A) 59 %; RBC 4.65 m/uL (3.80-5.40); RDW 13.6 % (11.5-15.5); WBC 11.4 k/uL (3.8-10.6); WBC (Perox) 11.45
[2017-06-12 08:08] LABS: ALT 30 U/L (9-52); AST 21 U/L (14-36); Alkaline Phosphatase 85 U/L (38-126); Anion Gap 10 mmol/L; Blood Urea Nitrogen 14 mg/dL (7-17); Calcium 9.9 mg/dL (8.4-10.2); Carbon Dioxide 29 mmol/L (22-30); Chloride 103 mmol/L (98-107); Glucose 81 mg/dL (74-99); Non-African American GFR(MDRD) >60 (>60 ml/min/1.73 sqM); Potassium 4.3 mmol/L (3.5-5.1); Sodium 142 mmol/L (137-145); Total Bilirubin 0.5 mg/dL (0.2-1.3); Total Protein 7.5 g/dL (6.3-8.2)
[2017-06-12] MEDS ORDERED: VIIBRYD 40MG PO SCH (09:00)
[2017-06-12] MEDS: NICOTINE 21MG/24HR PATCH TRANSDERM SCH (09:34)
[2017-06-12] MEDS: PANTOPRAZOLE 40 MG TABLET PO SCH (09:35)
[2017-06-12] MEDS: ACETAMINOPHEN TAB 325 MG TAB PO PRN ×2 (10:36→21:56)
[2017-06-12] MEDS: VIIBRYD 40 MG PO SCH (10:59)
[2017-06-12] MEDS ORDERED: PRAZOSIN 1 MG CAP PO SCH (21:00)
[2017-06-12] MEDS: METOPROLOL SUCCINATE (ER) 25 MG TAB.ER.24H PO SCH (21:54)
[2017-06-13 06:43] VITALS: BP 125/76; PULSE 99; TEMP 97.7
[2017-06-13] MEDS: VIIBRYD 40 MG PO SCH (09:40)
[2017-06-13] MEDS: PANTOPRAZOLE 40 MG TABLET PO SCH (09:40)
[2017-06-13] MEDS: NICOTINE 21MG/24HR PATCH TRANSDERM SCH (09:40)
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
--- NOTE | 2017-06-13 21:25 | P.MDCNMH ---
History of Present Illness H&P Date: 06/12/17 Chief Complaint: Social ideation This is a 51-year-old female with a past medical history of seizure disorder came to the ER for mental health evaluation. Patient has been under increased and significant amount of stress as of late. Patient has lost close family member and has been depressed since then.. She does admit to thoughts of suicide. Currently denied any complaints of chest pain or short of breath. No nausea vomiting or abdominal pain. Denied any other problems at this time. Review of Systems Constitutional: Patient denies any fever or chills . No generalized weakness or weight loss. Abdomen: Patient denied nausea vomiting and diarrhea and abdominal pain. Cardiovascular: Patient denies any chest pain or short of breath no palpitations. Respiratory: patient denied any cough is from production. No shortness of breath Neurologic: Patient denied any numbness or tingling headache. Musculoskeletal: Patient denies any complaints of joint swelling or deformity. Skin: Negative Psychiatric: Negative Endocrine: No heat or cold intolerance. No recent weight gain. Genitourinary: No dysuria or hematuria. All other 14 point ROS negative except the above Past Medical History Past Medical History: Musculoskeletal Disorder, Seizure Disorder Additional Past Medical History / Comment(s): LAST SEIZURE 2008, NOT CURRENTLY ON ANY MEDICATION, DDD WITH BACK and NECK PAIN., PRE-CANCER CERVICAL. fibrocystic breast bilaterally under the care of Dr. Jacob History of Any Multi-Drug Resistant Organisms: None Reported Past Surgical History: Breast Surgery, Cholecystectomy, Orthopedic Surgery, Tubal Ligation, Uterine Ablation Additional Past Surgical History / Comment(s): twisted ureter, LEFT ELBOW SX, LEFT CARPAL TUNNEL, LEFT SHOULDER rotator cuffSX TWICE, Biopsy of bilaterial breast 10/2016 finding fibrocystic disease, colonoscopy 5 years ago that was normal Past Anesthesia/Blood Transfusion Reactions: No Reported Reaction Past Psychological History: Depression, Panic Disorder, PTSD Smoking Status: Current every day smoker Past Alcohol Use History: Occasional Past Drug Use History: None Reported - Past Family History Father Family Medical History: Cancer, Coronary Artery Disease (CAD), Dementia Additional Family Medical History / Comment(s): father is alive at age 85 with history of Alzheimer's disease, coronary artery disease status post post 4 vessel CABG, CVA, SKIN CA Mother History Unknown: Yes Additional Family Medical History / Comment(s): Mother is alive at age 83 with history of hypertension. Son(s) Additional Family Medical History / Comment(s): patient has 2 sons and one has Depression Daughter(s) Family Medical History: No Reported History Additional Family Medical History / Comment(s): Patient has one daughter with no major medical problems. Brother(s) Additional Family Medical History / Comment(s): patient has 5 brothers. One at age 27 from suicide. One has coronary artery disease status post 2 vessel CABG. Medications and Allergies Home Medications Medication Instructions Recorded Confirmed Type Cholecalciferol [Vitamin D3] 5,000 unit PO DAILY 06/11/17 06/11/17 History Fluticasone Nasal [place] [Flonase 1 - 2 spray EA NOSTRIL DAILY PRN 06/11/1706/11 History Nasal [place]] Loratadine [Claritin] 10 mg PO DAILY PRN 06/11/17 06/11/17 History Omeprazole [PriLOSEC] 20 mg PO AC-BRKFST 06/11/17 06/11/17 History Metoprolol Succinate [Toprol XL] 25 mg PO HS #14 tab.er.24h 06/13/17 Rx Nicotine 21Mg/24Hr Patch [Habitrol] 1 patch TRANSDERM DAILY #14 patch 06/13/17 Rx Prazosin [Minipress] 1 mg PO HS #14 cap 06/13/17 Rx Vilazodone HCl [Viibryd] 40 mg PO DAILY #14 tablet 06/13/17 Rx clonazePAM [KlonoPIN] 1 mg PO TID PRN tab 06/13/17 Rx Allergies Allergy/AdvReac Type Severity Reaction Status Date / Time peanut Allergy Swelling Verified 06/11/17 11:45 sumatriptan [From Imitrex] Allergy Swelling Verified 06/11/17 11:45 sumatriptan succinate Allergy Swelling Verified 06/11/17 11:45 [From Imitrex] Physical Exam Vitals: Vital Signs Temp Pulse Resp BP 06/13/17 06:42 97.7 F 99 16 125/76 PHYSICAL EXAMINATION: Patient is lying in the bed comfortably, no acute distress, awake alert and oriented.. HEENT: Normocephalic. Neck is supple. Pupils reactive. Nostrils clear. Oral cavity is moist. Ears reveal no drainage. Neck reveals no JVD, carotid bruits, or thyromegaly. CHEST EXAMINATION: Trachea is central. Symmetrical expansion. Lung cespedes clear to auscultation and percussion. CARDIAC: Normal S1, S2 with no gallops. No murmurs ABDOMEN: Soft. Bowel sounds normal. No organomegaly. No abdominal bruits. Extremities: reveal no edema. No clubbing or cyanosis Neurologically awake, alert, oriented x3 with well-coordinated movements. No focal deficits noted Skin: No rash or skin lesions. Psychiatric: Cooperative. Nonsuicidal Musculoskeletal: No joint swelling or deformity. Normal range of motion. Cranial Nerve Examination - Cranial Nerves Cranial Nerve I- Olfactory: Intact Cranial Nerve II- Optic: Intact Cranial Nerve III- Oculomotor: Intact Cranial Nerve IV- Trochlear: Intact Cranial Nerve V- Trigeminal: Intact Cranial Nerve - Abducens: Intact Cranial Nerve VII- Facial: Intact Cranial Nerve VIII- Auditory: Intact Cranial Nerve IX- Glossopharyngeal: Intact Cranial Nerve X- Vagus: Intact Cranial Nerve XI- Accessory: Intact Cranial Nerve XII- Hypoglossal: Intact Results CBC & Chem 7: 06/12/17 07:27 06/12/17 07:27 Assessment and Plan Assessment: #1 adjustment disorder #2 history of depression, panic disorder and PTSD #3 seizure disorder #4 history of carpal tunnel release surgery Plan: Patient will be continued on home antiepileptic medications and continue with your psychiatric evolution. We'll continue to follow closely. Further recommendations based on the clinical course. Thank you for your consult
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
== END 2017-06-13 09:33 | disposition home or self-care (01) | DRG 882 ==
LOC: EC 11:23 → 3MHU 14:20
PROVIDERS: ADMIT Psychiatry & Neurology Psychiatry; ATTEND Psychiatry & Neurology Psychiatry
DX: F43.12 Post-traumatic stress disorder, chronic (principal); R45.851 Suicidal ideations; G40.909 Epilepsy, unspecified, not intractable, without status epilepticus; F41.0 Panic disorder [episodic paroxysmal anxiety]; F17.200 Nicotine dependence, unspecified, uncomplicated; F43.21 Adjustment disorder with depressed mood; F60.3 Borderline personality disorder; N60.19 Diffuse cystic mastopathy of unspecified breast; Z62.810 Personal history of physical and sexual abuse in childhood; Z63.4 Disappearance and death of family member; Z79.899 Other long term (current) drug therapy; Z88.8 Allergy status to other drugs, medicaments and biological substances; Z82.49 Family history of ischemic heart disease and other diseases of the circulatory system
CPT/HCPCS: 80053; 80306; 82075; 84443; 85025; 99285

== ENCOUNTER → 2017-06-16 | Outpatient (CLI) | payer MEDICARE, OTHER ==
--- NOTE | 2017-06-16 08:53 | US ---
EXAMINATION TYPE: US carotid duplex BILAT DATE OF EXAM: 06/16/2017 COMPARISON: NONE CLINICAL HISTORY: R41.82 Altered mental status. Patients states sleeping and having a nightmare, unab le to talk or move after waking up. EXAM MEASUREMENTS: RIGHT: Peak Systolic Velocity (PSV) cm/sec ----- Right CCA: 108.4 ----- Right ICA: 101.8 ----- Right ECA: 113.4 ICA/CCA ratio: 0.9 RIGHT: End Diastole cm/sec ----- Right CCA: 36.9 ----- Right ICA: 40.2 ----- Right ECA: 18.9 LEFT: Peak Systolic Velocity (PSV) cm/sec ----- Left CCA: 89.7 ----- Left ICA: 89.7 ----- Left ECA: 61.6 ICA/CCA ratio: 1.0 LEFT: End Diastole cm/sec ----- Left CCA: 33.6 ----- Left ICA: 41.3 ----- Left ECA: 12.5 VERTEBRALS (direction of flow): Right Vertebral: Antegrade Left Vertebral: Antegrade Rhythm: Normal No plaque, wall thickening, elevated velocities or significant stenosis seen Grayscale images show no significant plaque at carotid bulb level. Velocity measurements and ratios a re within normal limits bilaterally. IMPRESSION: No hemodynamically significant stenosis is seen in either internal carotid artery.
--- NOTE | 2017-06-16 09:52 | MR ---
EXAMINATION TYPE: MR brain wo con DATE OF EXAM: 06/16/2017 COMPARISON: NONE HISTORY: Altered mental status CONTRAST: Performed utilizing 0 mL intravenous Gadavist gadolinium contrast. TECHNIQUE: Multiplanar, multiecho imaging on a 3.0 Billie magnet is performed through the brain. Stud y is performed within 24 hours of arrival to the hospital. The craniovertebral junction is normal. The pituitary is normal. Diffusion-weighted imaging is performed. No abnormal hyperintensity is present to suggest an acute i ntracranial infarct or acute ischemic change. Signal through the brain appears normal Ventricles and sulci are appropriate for the patient age. IMPRESSIONS: 1. No acute intracranial process
== END | disposition home or self-care (01) ==
LOC: RADMRIMAIN 07:35
PROVIDERS: ATTEND Psychiatry & Neurology Neurology
DX: R41.82 Altered mental status, unspecified (principal); Z87.898 Personal history of other specified conditions
CPT/HCPCS: 70551; 93880

== ENCOUNTER 2017-09-16 12:29 | Emergency (ER) | payer MEDICARE, OTHER ==
[2017-09-16] MEDS ORDERED: ORPHENADRINE 30 MG/ML 2 ML VIAL IVP STA (13:45)
[2017-09-16] MEDS ORDERED: SODIUM CHLORIDE 0.9% 500 ML IV STA (13:45)
[2017-09-16] MEDS ORDERED: KETOROLAC 30 MG/ML 1 ML VIAL IVP STA (13:45)
[2017-09-16] MEDS ORDERED: RX INFO: IV CONTRAST WAS GIVEN 1 EACH MISC MISCELLANE PRN (13:45)
--- NOTE | 2017-09-16 13:47 | ED ---
General Adult HPI - General Chief complaint: Abdominal Pain Stated complaint: Left Side Hip/Back Pain Time Seen by Provider: 09/16/17 13:30 Source: patient, RN notes reviewed Mode of arrival: wheelchair Limitations: no limitations - History of Present Illness Initial comments: 52-year-old female presents to the emergency department with a chief complaint of left lower quadrant abdominal pain. Patient states that this started today. She states it radiates from the back. Wraps around into her left lower quadrant. She denies any headache. There is been no nausea no vomiting no fever chills. She does have a history of back pain but she states this feels different than that. She states that there is some radiation to the buttock as well. She states that she was concerned due to the continued pain so she thought that she should be seen. Patient states that movement and positioning can help with the pain. Patient denies any recent fever, chills, shortness of breath, chest pain, nausea vomiting, numbness or tingling, dysuria or hematuria , constipation or diarrhea, headaches or visual changes, or any other current symptoms. - Related Data Home Medications Medication Instructions Recorded Confirmed Cholecalciferol [Vitamin D3] 5,000 unit PO DAILY 06/11/17 09/16/17 Fluticasone Nasal [place] [Flonase 1 spray EA NOSTRIL DAILY 06/11/17 09/16/17 Nasal [place]] Loratadine [Claritin] 10 mg PO DAILY PRN 06/11/17 09/16/17 Omeprazole [PriLOSEC] 20 mg PO AC-BRKFST 06/11/17 09/16/17 Cyanocobalamin [Vitamin B-12 2,000 mcg SQ Q84D 09/16/17 09/16/17 Injection] Lisinopril [Zestril] 20 mg PO DAILY 09/16/17 09/16/17 Metoprolol Succinate [Toprol XL] 25 mg PO DAILY 09/16/17 09/16/17 OLANZapine [ZyPREXA] 5 mg PO HS 09/16/17 09/16/17 clonazePAM [KlonoPIN] 0.5 mg PO BID 09/16/17 09/16/17 clonazePAM [KlonoPIN] 2 mg PO HS 09/16/17 09/16/17 Previous Rx's Medication Instructions Recorded Vilazodone HCl [Viibryd] 40 mg PO DAILY #14 tablet 06/13/17 Ibuprofen [Motrin] 600 mg PO Q6HR PRN #20 tab 09/16/17 Orphenadrine [Norflex] 100 mg PO Q12H #10 tablet.er 09/16/17 predniSONE 50 mg PO DAILY #5 tab 09/16/17 Allergies Allergy/AdvReac Type Severity Reaction Status Date / Time peanut Allergy Anaphylaxis Verified 09/16/17 14:26 Sulfa (Sulfonamide Allergy Unknown Verified 09/16/17 14:26 Antibiotics) sumatriptan [From Imitrex] Allergy Anaphylaxis Verified 09/16/17 14:26 sumatriptan succinate Allergy Anaphylaxis Verified 09/16/17 14:26 [From Imitrex] Review of Systems ROS Statement: Those systems with pertinent positive or pertinent negative responses have been documented in the HPI. ROS Other: All systems not noted in ROS Statement are negative. Past Medical History Past Medical History: Musculoskeletal Disorder, Seizure Disorder Additional Past Medical History / Comment(s): LAST SEIZURE 2008, NOT CURRENTLY ON ANY MEDICATION, DDD WITH BACK and NECK PAIN., PRE-CANCER CERVICAL. fibrocystic breast bilaterally under the care of Dr. Jacob History of Any Multi-Drug Resistant Organisms: None Reported Past Surgical History: Breast Surgery, Cholecystectomy, Orthopedic Surgery, Tubal Ligation, Uterine Ablation Additional Past Surgical History / Comment(s): twisted ureter, LEFT ELBOW SX, LEFT CARPAL TUNNEL, LEFT SHOULDER rotator cuffSX TWICE, Biopsy of bilaterial breast 10/2016 finding fibrocystic disease, colonoscopy 5 years ago that was normal Past Anesthesia/Blood Transfusion Reactions: No Reported Reaction Past Psychological History: Depression, Panic Disorder, PTSD Smoking Status: Current every day smoker Past Alcohol Use History: Occasional Past Drug Use History: None Reported - Past Family History Father Family Medical History: Cancer, Coronary Artery Disease (CAD), Dementia Additional Family Medical History / Comment(s): father is alive at age 85 with history of Alzheimer's disease, coronary artery disease status post post 4 vessel CABG, CVA, SKIN CA Mother History Unknown: Yes Additional Family Medical History / Comment(s): Mother is alive at age 83 with history of hypertension. Son(s) Additional Family Medical History / Comment(s): patient has 2 sons and one has Depression Daughter(s) Family Medical History: No Reported History Additional Family Medical History / Comment(s): Patient has one daughter with no major medical problems. Brother(s) Additional Family Medical History / Comment(s): patient has 5 brothers. One at age 27 from suicide. One has coronary artery disease status post 2 vessel CABG. General Exam - General Exam Comments Initial Comments: General: The patient is awake and alert, in no distress, and does not appear acutely ill. Eye: Pupils are equal, round and reactive to light, extra-ocular movements are intact; there is normal conjunctiva bilaterally. No signs of icterus. Ears, nose, mouth and throat: There are moist mucous membranes. Neck: The neck is supple, there is no tenderness. Cardiovascular: There is a regular rate and rhythm. No murmur, rub or gallop is appreciated. Respiratory: Lungs are clear to auscultation, respirations are non-labored, breath sounds are equal. No wheezes, stridor, rales, or rhonchi. Gastrointestinal: Soft, non-distended, mild tenderness in left lateral aspect of the abdomen without masses or organomegaly noted. There is no rebound or guarding present. No CVA tenderness. Bowel sounds are unremarkable. Back: There is no tenderness to palpation in the midline. There is no obvious deformity. No rashes noted. Musculoskeletal: Normal ROM, no tenderness, There is no pedal edema. There is no calf tenderness or swelling. Sensation intact. Pulses equal bilaterally 2+. Neurological: CN II-XII intact, There are no obvious motor or sensory deficits. Coordination appears grossly intact. Speech is normal. Skin: Skin is warm and dry and no rashes or lesions are noted. Psychiatric: Cooperative, appropriate mood & affect, normal judgment. Limitations: no limitations Course Vital Signs 09/16/17 09/16/17 13:02 14:49 Temperature 97.8 F 98 F Pulse Rate 86 78 Respiratory 17 18 Rate Blood Pressure 112/64 126/67 O2 Sat by Pulse 98 99 Oximetry Medical Decision Making - Medical Decision Making 52-year-old female presents for left-sided abdominal pain. At this time patient 's abdomen CT as well as lab work is been reviewed. The pain is positional does radiate into the back and leg and she has a history of degenerative disc disease there is suspicion this pain may be originating from the back. Other workup otherwise does not show an acute cause. At this time we did discuss that we will start her on steroids muscle axes for home as well as pain medication. We did discuss follow-up with or so and give their information. We did discuss using the exercises we give her provided and return parameters. Patient stated that she understood and she is in agreement with this plan. All questions have been answered. This time the patient will be discharged home. - Lab Data Result diagrams: 09/16/17 13:56 09/16/17 13:56 Lab Results 09/16/17 09/16/17 09/16/17 Range/Units 13:56 13:56 14:48 WBC 10.5 (3.8-10.6) k/uL RBC 4.27 (3.80-5.40) m/uL Hgb 13.2 (11.4-16.0) gm/dL Hct 39.5 (34.0-46.0) % MCV 92.4 (80.0-100.0) fL MCH 30.9 (25.0-35.0) pg MCHC 33.5 (31.0-37.0) g/dL RDW 12.4 (11.5-15.5) % Plt Count 377 (150-450) k/uL Neutrophils % 67 % Lymphocytes % 26 % Monocytes % 3 % Eosinophils % 2 % Basophils % 0 % Neutrophils # 7.1 (1.3-7.7) k/uL Lymphocytes # 2.8 (1.0-4.8) k/uL Monocytes # 0.3 (0-1.0) k/uL Eosinophils # 0.2 (0-0.7) k/uL Basophils # 0.0 (0-0.2) k/uL Sodium 142 (137-145) mmol/L Potassium 3.8 (3.5-5.1) mmol/L Chloride 105 (98-107) mmol/L Carbon Dioxide 27 (22-30) mmol/L Anion Gap 10 mmol/L BUN 6 L (7-17) mg/dL Creatinine 0.64 (0.52-1.04) mg/dL Est GFR (MDRD) Af Amer >60 (>60 ml/min/1.73 sqM) Est GFR (MDRD) Non-Af >60 (>60 ml/min/1.73 sqM) Glucose 131 H (74-99) mg/dL Calcium 9.7 (8.4-10.2) mg/dL Total Bilirubin 0.2 (0.2-1.3) mg/dL AST 34 (14-36) U/L ALT 37 (9-52) U/L Alkaline Phosphatase 86 (38-126) U/L Total Protein 6.9 (6.3-8.2) g/dL Albumin 4.1 (3.5-5.0) g/dL Amylase 55 (30-110) U/L Lipase 193 (23-300) U/L Urine Color Yellow Urine Appearance Clear (Clear) Urine pH 5.5 (5.0-8.0) Ur Specific [place] 1.006 (1.001-1.035) Urine Protein Negative (Negative) Urine Glucose (UA) Negative (Negative) Urine Ketones Negative (Negative) Urine Blood Small H (Negative) Urine Nitrite Negative (Negative) Urine Bilirubin Negative (Negative) Urine Urobilinogen <2.0 (<2.0) mg/dL Ur Leukocyte Esterase Negative (Negative) Urine RBC 1 (0-5) /hpf Urine WBC 1 (0-5) /hpf Ur Squamous Epith Cells <1 (0-4) /hpf Urine Mucus Rare H (None) /hpf - Radiology Data Radiology results: report reviewed, image reviewed Disposition Clinical Impression: Lumbar strain, Abdominal pain Disposition: HOME SELF-CARE Condition: Stable Instructions: Abdominal Pain (ED), Low Back Strain (ED), Lower Back Exercises ( ED) Additional Instructions: Please use medication as discussed. Please follow up with family doctor if symptoms have not improved over the next two days. Please return to the emergency room if your symptoms increase or worsen or for any other concerns. Prescriptions: Ibuprofen [Motrin] 600 mg PO Q6HR PRN #20 tab PRN Reason: Pain Orphenadrine [Norflex] 100 mg PO Q12H #10 tablet.er predniSONE 50 mg PO DAILY #5 tab Referrals: Sharon Wallace PAC [REFERRING] - 1-2 days Time of Disposition: 15:49
[2017-09-16 14:17] LABS: Basophils % (A) 0 %; Eosinophils # (A) 0.2 k/uL (0-0.7); Eosinophils % (A) 2 %; HCT 39.5 % (34.0-46.0); HGB 13.2 gm/dL (11.4-16.0); Lymphocytes # (A) 2.8 k/uL (1.0-4.8); Lymphocytes % (A) 26 %; MCH 30.9 pg (25.0-35.0); MCHC 33.5 g/dL (31.0-37.0); MCV 92.4 fL (80.0-100.0); Mean Platelet Volume 7.1; Monocytes # (A) 0.3 k/uL (0-1.0); Monocytes % (A) 3 %; Neutrophils # (A) 7.1 k/uL (1.3-7.7); Neutrophils % (A) 67 %; Platelet Count 377 k/uL (150-450); RBC 4.27 m/uL (3.80-5.40); RDW 12.4 % (11.5-15.5); WBC 10.5 k/uL (3.8-10.6)
[2017-09-16 14:27] LABS: ALT 37 U/L (9-52); AST 34 U/L (14-36); Albumin 4.1 g/dL (3.5-5.0); Alkaline Phosphatase 86 U/L (38-126); Amylase 55 U/L (30-110); Anion Gap 10 mmol/L; Blood Urea Nitrogen 6 mg/dL (7-17); Calcium 9.7 mg/dL (8.4-10.2); Carbon Dioxide 27 mmol/L (22-30); Chloride 105 mmol/L (98-107); Glucose 131 mg/dL (74-99); Lipase 193 U/L (23-300); Potassium 3.8 mmol/L (3.5-5.1); Sodium 142 mmol/L (137-145); Total Bilirubin 0.2 mg/dL (0.2-1.3); Total Protein 6.9 g/dL (6.3-8.2)
[2017-09-16 15:23] LABS: Appearance,Urine Clear (Clear); Bilirubin,Urine Negative (Negative); Blood,Urine Small (Negative); Color,Urine Yellow; Glucose,Urine (UA) Negative (Negative); Ketones,Urine Negative (Negative); Leukocyte Esterase,Urine Negative (Negative); Mucus,Urine Rare /hpf; Nitrite,Urine Negative (Negative); PH, Urine 5.5 (5.0-8.0); Protein,Urine Negative (Negative); RBC,Urine 1 /hpf (0-5); Specific Gravity,Urine 1.006 (1.001-1.035); Squamous Epithelial Cell,Urine <1 /hpf (0-4); Urobilinogen,Urine <2.0 mg/dL (<2.0); WBC,Urine 1 /hpf (0-5)
--- NOTE | 2017-09-16 15:37 | CT ---
EXAMINATION TYPE: CT abdomen pelvis w con DATE OF EXAM: 09/16/2017 HISTORY: LLQ pain starting yesterday. CT DLP: 1459mGycm Automated Exposure Control for Dose Reduction was Utilized. CONTRAST: CT scan of the abdomen and pelvis is performed with IV Contrast, patient injected with 100ml mL of Om nipaque 300. COMPARISON: None 03/14/2014. FINDINGS: LUNG BASES: Minimal bibasilar subsegmental dependent atelectasis is seen bilaterally. LIVER/GB: Hepatic parenchyma enhances homogeneously. Gallbladder surgically absent. PANCREAS: No significant abnormality is seen. No ductal dilatation. SPLEEN: No significant abnormality is seen. No splenomegaly. ADRENALS: No nodularity or thickening. KIDNEYS: Kidneys enhance symmetrically other than a 1.1 cm right lower pole renal cyst. Second adjace nt right lower pole hypoattenuated renal lesion is too small to accurately characterize. No evidence of hydronephrosis. BOWEL: No significant abnormality is seen. UTERUS/ADNEXA: Follicular changes are seen of the ovaries. Uterus is heterogenous without discrete me asurable lesion. Finding could represent an adenomyosis, leiomyoma, or phase of contrast. LYMPH NODES: No greater than 1cm abdominal or pelvic lymph nodes are appreciated. OSSEOUS STRUCTURES: No significant abnormality is seen. IMPRESSION: 1. No CT finding is seen to account for patient's clinical symptoms. 2. Right renal cyst and additional right renal lesion that is too small to accurately characterize. 3. Slight heterogeneity in the myometrium that could represent adenomyosis, leiomyoma or related to t he phase of contrast.
[2017-09-16] MEDS ORDERED: methylPREDNISolone SOD SUCCI 125 MG/2 ML VIAL IV STA (15:42)
[2017-09-16 16:11] VITALS: BP 119/80; PULSE 87; RESP 16; TEMP 97.8
== END 2017-09-16 16:10 | disposition home or self-care (01) ==
LOC: EC 12:29
DX: S39.012A Strain of muscle, fascia and tendon of lower back, initial encounter (principal); R10.32 Left lower quadrant pain; G40.909 Epilepsy, unspecified, not intractable, without status epilepticus; F32.9 Major depressive disorder, single episode, unspecified; F41.0 Panic disorder [episodic paroxysmal anxiety]; F43.10 Post-traumatic stress disorder, unspecified; F17.200 Nicotine dependence, unspecified, uncomplicated; Z87.39 Personal history of other diseases of the musculoskeletal system and connective tissue; Z79.51 Long term (current) use of inhaled steroids; Z79.899 Other long term (current) drug therapy; Z88.2 Allergy status to sulfonamides; Z88.8 Allergy status to other drugs, medicaments and biological substances; Z91.010 Allergy to peanuts; Z90.49 Acquired absence of other specified parts of digestive tract
CPT/HCPCS: 36415; 80053; 82150; 83690; 85025; 81001; 87086; 74177; 99284; 96374; 96375 ×2; 96361 ×2; J2360; J2930; J1885; Q9967

== ENCOUNTER 2017-11-11 08:15 | Day surgery (SDC) | payer MEDICARE, OTHER ==
[2017-11-06 15:51] VITALS: BMI 29.2
[~2017-11-11 08:15] MED LIST changes: -BACITRACIN OINT 1 EACH PACKET TOPICAL ONE; +LACTATED RINGERS 1,000 ML IV SCH; +LIDOCAINE 1% 20 ML VIAL (10MG/ML) FOR IV START INTRADERMA PRN; -LIDOCAINE 1% INJ 10MG/ML (20 ML MDV) ONE; -LIDOCAINE 1%-EPI 1:100,000 20 ML VIAL ONE; -SODIUM BICARB 4% 5 ML VIAL (0.48 MEQ/ML) ONE
[2017-11-11 08:58] VITALS: TEMP 98.1
[2017-11-11] MEDS ORDERED: PROPOFOL 10 MG/ML 20 ML VIAL IV ONE (09:38)
[2017-11-11] MEDS ORDERED: LIDOCAINE 1% INJ 10MG/ML (20 ML MDV) ONE (09:38)
[2017-11-11] MEDS ORDERED: fentaNYL (PF) 50 MCG/ML 2 ML AMP ONE (09:38)
[2017-11-11] MEDS ORDERED: GLYCOPYRROLATE 0.2 MG/ML 2 ML VIAL ONE (09:38)
--- NOTE | 2017-11-11 10:03 | P.GSHP ---
History of Present Illness H&P Date: 11/11/17 Chief Complaint: GERD, colitis This is a 52-year-old female referred from Dr. Murrieta. Patient rents today for EGD colonoscopy. She's had complaints of GERD and diarrhea. Past Medical History Past Medical History: Cancer, GERD/Reflux, Hyperlipidemia, Hypertension, Osteoarthritis (OA), Thyroid Disorder Additional Past Medical History / Comment(s): possible hx seizures "not proven" , DDD WITH BACK and NECK PAIN., TIA- no effects, palpitations, colitis, change in bowel habits, "pre cancer in cervix", has been weak and dizzy History of Any Multi-Drug Resistant Organisms: None Reported Past Surgical History: Breast Surgery, Cholecystectomy, Orthopedic Surgery, Tubal Ligation, Uterine Ablation Additional Past Surgical History / Comment(s): twisted ureter, LEFT ELBOW surgery, LEFT CARPAL TUNNEL, LEFT SHOULDER rotator cuff x2, Biopsy of bilaterial breast Past Anesthesia/Blood Transfusion Reactions: Motion Sickness Smoking Status: Former smoker - Past Family History Father Family Medical History: Cancer, Deep Vein Thrombosis (DVT) Additional Family Medical History / Comment(s): father is alive at age 85 with history of Alzheimer's disease, coronary artery disease status post post 4 vessel CABG, CVA, SKIN CA Mother History Unknown: Yes Additional Family Medical History / Comment(s): Mother is alive at age 83 with history of hypertension. Son(s) Additional Family Medical History / Comment(s): patient has 2 sons and one has Depression Daughter(s) Family Medical History: No Reported History Additional Family Medical History / Comment(s): Patient has one daughter with no major medical problems. Brother(s) Family Medical History: Cancer Additional Family Medical History / Comment(s): patient has 5 brothers. One at age 27 from suicide. One has coronary artery disease status post 2 vessel CABG. Medications and Allergies Home Medications Medication Instructions Recorded Confirmed Type Omeprazole [PriLOSEC] 20 mg PO AC-BRKFST PRN 06/11/17 11/11/17 History Melatonin 10 mg PO HS 11/06/17 11/11/17 History Metoprolol Succinate (ER) [Toprol 50 mg PO HS 11/06/17 11/11/17 History Xl] clonazePAM [KlonoPIN] 1 mg PO DAILY PRN 11/06/17 11/11/17 History Allergies Allergy/AdvReac Type Severity Reaction Status Date / Time peanut Allergy Anaphylaxis Verified 11/11/17 08:39 Sulfa (Sulfonamide Allergy Vomiting Verified 11/11/17 08:39 Antibiotics) sumatriptan [From Imitrex] Allergy Anaphylaxis Verified 11/11/17 08:39 sumatriptan succinate Allergy Anaphylaxis Verified 11/11/17 08:39 [From Imitrex] tree nut [Nut] Allergy Anaphylaxis Verified 11/11/17 08:39 Surgical - Exam Vital Signs Temp Pulse Resp BP Pulse Ox 98.1 F 74 16 129/76 98 11/11/17 08:57 11/11/17 08:57 11/11/17 08:57 11/11/17 08:57 11/11/17 08:57 - General well developed, no distress - Eyes PERRL - ENT normal pinna - Neck no masses - Respiratory normal expansion - Cardiovascular Rhythm: regular - Abdomen Abdomen: soft, non tender Assessment and Plan Assessment: GERD, diarrhea with possible colitis. Patient will undergo EGD and colonoscopy.
--- NOTE | 2017-11-11 10:28 | P.OP ---
Date of Procedure: 11/11/17 Preoperative Diagnosis: GERD Colitis Postoperative Diagnosis: Antral gastritis No evidence of hiatal hernia Sigmoid polyp Procedure(s) Performed: EGD Colonoscopy Anesthesia: MAC Surgeon: Rigoberto Chow Pathology: other (Antrum, esophagus) Condition: stable Disposition: PACU Description of Procedure: The patient's placed on the endoscopy table in the lateral position. The IV sedation. The gastroscope was placed oropharynx passed in the esophagus and stomach. Scope was then placed through the pylorus. The first and second portion of the duodenum appeared normal. Scope was then brought back the antrum this was mildly inflamed. A biopsies performed. The scope was unretroflexed and remainder stomach appeared normal. The GE junction was at 40 cm. The distal esophagus appeared normal. The proximal esophagus appeared normal. Scope was withdrawn for patient. Next digital rectal exam was performed which revealed no abnormalities. The flexible colonoscope was then placed patient anus and passed throughout the entire colon. The ileocecal valve was visualized. The cecum and ascending colon appeared normal. The scope was then brought back into the transverse and descending colon and this appeared normal. In the sigmoid colon a small sessile polyp was removed the forcep. The remainder of the sigmoid colon and rectum was normal. The scope was withdrawn for patient. There is no no evidence of colitis.
[2017-11-11 11:08] VITALS: BP 137/76; PULSE 68; RESP 18
== END 2017-11-11 11:09 | disposition home or self-care (01) ==
LOC: ORWHC2ENDO 08:15
PROVIDERS: ATTEND Surgery
DX: K31.9 Disease of stomach and duodenum, unspecified (principal); K29.70 Gastritis, unspecified, without bleeding; K63.5 Polyp of colon; K21.9 Gastro-esophageal reflux disease without esophagitis; E78.5 Hyperlipidemia, unspecified; I10 Essential (primary) hypertension; M19.90 Unspecified osteoarthritis, unspecified site; E07.9 Disorder of thyroid, unspecified; F41.9 Anxiety disorder, unspecified; F32.9 Major depressive disorder, single episode, unspecified; Z86.73 Personal history of transient ischemic attack (TIA), and cerebral infarction without residual deficits; Z79.899 Other long term (current) drug therapy; Z88.2 Allergy status to sulfonamides; Z88.8 Allergy status to other drugs, medicaments and biological substances; Z91.018 Allergy to other foods; Z91.010 Allergy to peanuts; Z87.891 Personal history of nicotine dependence; Z98.51 Tubal ligation status
CPT/HCPCS: 81025; 88305; 45380; 43239; J2001; J3010; J2704

== ENCOUNTER 2018-03-06 10:58 | Emergency (ER) | payer MEDICARE, OTHER ==
--- NOTE | 2018-03-06 12:19 | ED ---
Lower Extremity Injury HPI - General Chief Complaint: Extremity Injury, Lower Stated Complaint: Lt leg pain Time Seen by Provider: 03/06/18 11:18 Source: patient Mode of arrival: ambulatory Limitations: no limitations - History of Present Illness Initial Comments: This 52-year-old white female presents with a complaint of some left knee pain. She states that she has had this for approximately 4 days. She denies any actual trauma to the knee. She has recently started a new workout regimen and states that this may have exacerbated it. She denies any swelling. The pain is primarily over the joint line. It is worse with any flexion of her knee. She denies any other injuries or complaints or modifying factors. She states that she does not have an orthopedic surgeon at this time. - Related Data Home Medications Medication Instructions Recorded Confirmed Metoprolol Succinate (ER) [Toprol 50 mg PO HS 11/06/17 03/06/18 Xl] Lisinopril [Zestril] 20 mg PO DAILY 03/06/18 03/06/18 Previous Rx's Medication Instructions Recorded Ibuprofen [Motrin] 800 mg PO Q8H PRN #20 tab 03/06/18 Allergies Allergy/AdvReac Type Severity Reaction Status Date / Time peanut Allergy Anaphylaxis Verified 03/06/18 11:54 Sulfa (Sulfonamide Allergy Vomiting Verified 03/06/18 11:54 Antibiotics) sumatriptan [From Imitrex] Allergy Anaphylaxis Verified 03/06/18 11:54 sumatriptan succinate Allergy Anaphylaxis Verified 03/06/18 11:54 [From Imitrex] tree nut [Nut] Allergy Anaphylaxis Verified 03/06/18 11:54 Review of Systems ROS Statement: Those systems with pertinent positive or pertinent negative responses have been documented in the HPI. ROS Other: All systems not noted in ROS Statement are negative. Past Medical History Past Medical History: Cancer, GERD/Reflux, Hyperlipidemia, Hypertension, Osteoarthritis (OA), Thyroid Disorder Additional Past Medical History / Comment(s): possible hx seizures "not proven" , DDD WITH BACK and NECK PAIN., TIA- no effects, palpitations, colitis, change in bowel habits, "pre cancer in cervix", has been weak and dizzy History of Any Multi-Drug Resistant Organisms: None Reported Past Surgical History: Breast Surgery, Cholecystectomy, Orthopedic Surgery, Tubal Ligation, Uterine Ablation Additional Past Surgical History / Comment(s): twisted ureter, LEFT ELBOW surgery, LEFT CARPAL TUNNEL, LEFT SHOULDER rotator cuff x2, Biopsy of bilaterial breast Past Anesthesia/Blood Transfusion Reactions: Motion Sickness Past Psychological History: Anxiety, Depression, Panic Disorder, PTSD Smoking Status: Current every day smoker Past Alcohol Use History: Occasional Past Drug Use History: None Reported - Past Family History Father Family Medical History: Cancer, Deep Vein Thrombosis (DVT) Additional Family Medical History / Comment(s): father is alive at age 85 with history of Alzheimer's disease, coronary artery disease status post post 4 vessel CABG, CVA, SKIN CA Mother History Unknown: Yes Additional Family Medical History / Comment(s): Mother is alive at age 83 with history of hypertension. Son(s) Additional Family Medical History / Comment(s): patient has 2 sons and one has Depression Daughter(s) Family Medical History: No Reported History Additional Family Medical History / Comment(s): Patient has one daughter with no major medical problems. Brother(s) Family Medical History: Cancer Additional Family Medical History / Comment(s): patient has 5 brothers. One at age 27 from suicide. One has coronary artery disease status post 2 vessel CABG. General Exam Limitations: no limitations General appearance: alert, in no apparent distress Extremities exam: Present: tenderness (There is some mild tenderness noted in the joint line of the left knee. There is no effusion identified. There is significant pain with any flexion of the knee. There is negative valgus varus Lockman and drawer testing. Serafin's difficult to assess due to her pain.). Absent: calf tenderness Neurological exam: Present: alert, oriented X3. Absent: motor sensory deficit Psychiatric exam: Present: normal affect, normal mood Skin exam: Present: intact. Absent: rash Course Vital Signs 03/06/18 11:05 Temperature 98.0 F Pulse Rate 92 Respiratory 17 Rate Blood Pressure 125/82 O2 Sat by Pulse 98 Oximetry Medical Decision Making - Medical Decision Making The patient was seen and examined. All diagnostics are reviewed. Taken of the left knee. There is no fracture or acute osseous abnormality. There may be a slight bony island posteriorly. Overall, is felt as though her symptoms are consistent with possible meniscal tear. His felt as though she benefit from orthopedic follow-up and MRI scanning. She is agreeable with this plan and leaves in no significant distress. Disposition Clinical Impression: Left knee sprain Disposition: HOME SELF-CARE Condition: Good Instructions: Knee Sprain (ED) Additional Instructions: Please obtain the MRI scan of her left knee as prescribed as soon as possible. Prescriptions: Ibuprofen [Motrin] 800 mg PO Q8H PRN #20 tab PRN Reason: Pain Is patient prescribed a controlled substance at d/c from ED?: No Referrals: Candie Murrieta MD [Primary Care Provider] - 1-2 days Malena Christopher PAC [PHYSICIAN DRAMA DIRECTOR] - As Soon As Possible Time of Disposition: 12:18
[2018-03-06 12:30] VITALS: BP 133/87; PULSE 89; RESP 20; TEMP 98.2
--- NOTE | 2018-03-06 12:30 | XR ---
EXAMINATION TYPE: XR knee limited LT DATE OF EXAM: 03/06/2018 CLINICAL HISTORY: pain TECHNIQUE: 2 views of the left knee are obtained. COMPARISON: None. FINDINGS: There is no acute fracture/dislocation. The tri-compartment joint spaces appear within no rmal limits. The overlying soft tissue appears unremarkable. IMPRESSION: There is no acute fracture or dislocation ICD 10 NO FRACTURE, INITIAL EVALUATION
== END 2018-03-06 12:25 | disposition home or self-care (01) ==
LOC: EC 10:58
DX: S83.92XA Sprain of unspecified site of left knee, initial encounter (principal); I10 Essential (primary) hypertension; M19.90 Unspecified osteoarthritis, unspecified site; F17.200 Nicotine dependence, unspecified, uncomplicated; Z86.73 Personal history of transient ischemic attack (TIA), and cerebral infarction without residual deficits; Z85.41 Personal history of malignant neoplasm of cervix uteri; Z79.899 Other long term (current) drug therapy; Z91.010 Allergy to peanuts; Z88.2 Allergy status to sulfonamides; Z88.8 Allergy status to other drugs, medicaments and biological substances; Z91.018 Allergy to other foods
CPT/HCPCS: 99283

== ENCOUNTER → 2018-03-14 | Outpatient (CLI) | payer MEDICARE, OTHER ==
--- NOTE | 2018-03-14 07:33 | MR ---
EXAMINATION TYPE: MR knee LT wo con DATE OF EXAM: 03/14/2018 7:26 AM COMPARISON: NONE HISTORY: Left knee pain TECHNIQUE: Multiplanar, multiecho imaging of the left knee is performed without IV contrast. FINDINGS: There is a small knee joint effusion which is partially decompressed into the gastrocnemius semimembranosus bursa. There is grade I to II chondromalacia involving the lateral patellar facet. There is also grade I to II chondromalacia involving the weightbearing surface of the medial femoral condyle. Both menisci appear intact. Both the anterior and posterior cruciate ligaments are unremarkable. Both the medial and lateral collateral ligament complexes are intact. There is a small amount of haylie a adjacent to the medial collateral ligament complex. The iliotibial band inserts normally upon Gerdy 's tubercle. The popliteus muscle and tendon are unremarkable. Both the patellar and quadriceps tendons are intact. There is minimal swelling in the Hoffa fat space . IMPRESSION: 1. MILD CHONDROMALACIA DESCRIBED. 2. NO EVIDENCE OF A MENISCAL OR LIGAMENTOUS INJURY. 3. SMALL JOINT EFFUSION PARTIALLY DECOMPRESSED INTO THE GASTROCNEMIUS SEMIMEMBRANOSUS BURSA.
== END | disposition home or self-care (01) ==
LOC: RADMRIMAIN 06:55
PROVIDERS: ATTEND Orthopaedic Surgery
DX: M25.462 Effusion, left knee (principal); M22.42 Chondromalacia patellae, left knee

== ENCOUNTER → 2018-03-18 | Outpatient (CLI) | payer MEDICARE, OTHER ==
[2018-03-18 11:03] LABS: Basophils % (A) 0 %; Eosinophils # (A) 0.1 k/uL (0-0.7); Eosinophils % (A) 1 %; HCT 42.9 % (34.0-46.0); HGB 13.5 gm/dL (11.4-16.0); Lymphocytes # (A) 2.1 k/uL (1.0-4.8); Lymphocytes % (A) 22 %; MCH 29.6 pg (25.0-35.0); MCHC 31.4 g/dL (31.0-37.0); MCV 94.4 fL (80.0-100.0); Mean Platelet Volume 6.7; Monocytes # (A) 0.3 k/uL (0-1.0); Monocytes % (A) 3 %; Neutrophils # (A) 6.6 k/uL (1.3-7.7); Neutrophils % (A) 71 %; Platelet Count 376 k/uL (150-450); RBC 4.54 m/uL (3.80-5.40); WBC 9.4 k/uL (3.8-10.6)
[2018-03-18 11:05] LABS: Potassium 4.5 mmol/L (3.5-5.1)
--- NOTE | 2018-03-18 11:07 | XR ---
EXAMINATION TYPE: XR chest 2V DATE OF EXAM: 03/18/2018 COMPARISON: None HISTORY: 52-year-old female presurgical evaluation TECHNIQUE: Frontal and lateral views FINDINGS: Heart normal size. Aorta and pulmonary vasculature within normal limits. No consolidation or pleural effusion. Widening of the left AC joint and suture anchors in the left greater tuberosity suggest pos tsurgical change and prior cuff repair. IMPRESSION: No acute cardiopulmonary process.
== END | disposition home or self-care (01) ==
LOC: LABPAT 09:44
PROVIDERS: ATTEND Orthopaedic Surgery
DX: Z01.818 Encounter for other preprocedural examination (principal); Z01.812 Encounter for preprocedural laboratory examination; M23.92 Unspecified internal derangement of left knee
CPT/HCPCS: 36415; 71046; 80051; 85025

== ENCOUNTER 2018-04-07 09:05 | Day surgery (SDC) | payer MEDICARE, OTHER ==
[2018-03-31 10:59] VITALS: BMI 27.8
--- NOTE | 2018-04-06 09:09 | HP ---
HISTORY AND PHYSICAL CHIEF COMPLAINT: Left knee pain. HISTORY OF PRESENT ILLNESS: The patient is a 52-year-old female on disability, who presents with progressive left knee pain, worsening over the past 6 months. She notes anterior and medial pain, worse with activities. She feels like it pops and gives out. It limits her and bothers her daily. She has had previous injections along with taking anti-inflammatories with only partial temporary relief. PAST MEDICAL HISTORY: Significant for depression and hypertension. PAST SURGICAL HISTORY: Significant for breast biopsy, tubal ligation, carpal tunnel release, left shoulder surgery, and laparoscopy. CURRENT MEDICATIONS: 1. Lisinopril. 2. Toprol. 3. Aleve. ALLERGIES: She notes allergies to IMITREX. FAMILY HISTORY: Significant for cancer and Alzheimer's. SOCIAL HISTORY: Significant for 1 pack per day tobacco use. REVIEW OF SYSTEMS: Sixteen-point review of systems otherwise reviewed and is noncontributory. PHYSICAL EXAMINATION: On examination, the patient is approximately 5 feet 3 inches, 156 pounds of mesomorphic habitus. HEENT exam is nonfocal. Neck is supple. She has painless passive motion of her left hip. Straight leg raise is negative. Active motion left knee -6 to 140 degrees of flexion. She has a trace effusion. She is tender about the medial joint line and medial patellar facet. Collaterals are stable, Sedrick's negative, Serafin's elicits medial pain. She does have genu varum alignment. Her distal neurovascular exam appears intact otherwise in the left lower extremity. MRI report left knee from 03/14/2018 shows a ruptured Santiago cyst along with increased signal involving the posterior medial meniscus and a questionable chondral injury of the distal medial femoral condyle. IMPRESSION: 1. Internal derangement, left knee with medial femoral condyle/patellar chondral injury. 2. Left knee mild to moderate medial compartment osteoarthrosis. RECOMMENDATIONS: I talked to the patient at length regarding her condition and treatment options. At this point, she is quite symptomatic despite conservative measures. After thorough discussion, she opts to proceed with surgery. We will plan to proceed with arthroscopic evaluation with possible medial femoral chondrectomy and patellar chondroplasty. Risks and benefits were discussed at length in layman's terms. We will likely perform that as an outpatient procedure. MMODL / IJN: [id number] /
[~2018-04-07 09:05] MED LIST changes: +DEXAMETHASONE SOD PHOSPHATE 10 MG/ML 1 ML VIAL IV ONE; +MIDAZOLAM 2 MG/2 ML VIAL IV PRN; +ONDANSETRON 4 MG/2 ML VIAL IVP ONE; +ceFAZolin 1,000 MG in DEXTROSE/WATER 1 50ML.BAG IVPB ONE
[2018-04-07] MEDS ORDERED: LIDOCAINE 1% INJ 10MG/ML (20 ML MDV) ONE (11:11)
[2018-04-07] MEDS ORDERED: HYDROmorphone (PF) 1 MG/ML ONE (11:11)
[2018-04-07] MEDS ORDERED: KETOROLAC 30 MG/ML 1 ML VIAL ONE (11:11)
[2018-04-07] MEDS ORDERED: MIDAZOLAM 2 MG/2 ML VIAL ONE (11:11)
[2018-04-07] MEDS ORDERED: fentaNYL (PF) 50 MCG/ML 2 ML AMP ONE (11:11)
[2018-04-07] MEDS ORDERED: PROPOFOL 10 MG/ML 20 ML VIAL IV ONE (11:11)
[2018-04-07] MEDS ORDERED: SUCCINYLCHOLINE CHLORIDE 100 MG/5 ML SYR IV ONE (11:11)
[2018-04-07] MEDS ORDERED: LACTATED RINGERS 1,000 ML IV ONE (12:01)
--- NOTE | 2018-04-07 12:05 | P.OP ---
Date of Procedure: 04/07/18 Preoperative Diagnosis: Left knee internal derangement Postoperative Diagnosis: Left knee posterior medial meniscal tear/grade 3 chondral injury distal medial femoral condyle/grade 3 chondral injury femoral trochlea/grade 2 chondral injury lateral patella facet Procedure(s) Performed: Left knee arthroscopic partial medial meniscectomy/medial femoral chondrectomy/ femoral trochlear chondroplasty/patellar chondroplasty/reactive synovitis of the medial and patellofemoral compartments Anesthesia: GETA Surgeon: Tin Rush Estimated Blood Loss (ml): 10 Pathology: none sent Condition: stable Disposition: PACU Indications for Procedure: Patient is a 52-year-old female who presents with progressive/persistent left knee pain and mechanical symptoms despite conservative measures. A discussion of the risks and benefits of operative intervention versus continued conservative measures was made with patient. She opted to proceed with surgery. Operative risks to include infection, neurovascular injury, development of blood clots, possible incomplete resolution of symptoms, possible worsening symptoms and need for subsequent procedures was discussed. Informed consent was obtained. Operative Findings: As below Description of Procedure: The patient was brought to the operating room, and after induction of general anesthesia examined the left knee. Collaterals were stable, Sedrick was negative, and posterior drawer was negative. Left lower extremity was prepped and draped in normal fashion. A superior lateral portals made through a 3 mm skin incision superior and lateral to the patella. This was used for outflow. A lateral portal was made through a 5 mm vertical skin incision lateral to the patella tendon above the joint. Diagnostic arthroscopy was performed. A medial portal was made through a similar incision medial to the patellar tendon above the joint line. On inspection medial compartment, and oblique tear involving the posterior most aspect the medial meniscus in the white-white junction was noted. This was debrided back to stable base with straight baskets and a motorized shaver. A corresponding grade 3 chondral injury involving the central distal portion of the medial femoral condyle was noted. There was a loose chondral fragment debrided back to stable base with a motorized shaver. On inspection of the notch, the anterior cruciate ligament appeared to be intact. On inspection of the lateral compartment, the lateral meniscus was stable and intact. On inspection of the patellofemoral articulation, a grade 3 chondral injury was noted involving the central portion the femoral trochlea with a loose chondral fragment. This was debrided back to stable base with a motorized shaver. A grade 2 chondral injury was noted involving the lateral patellar facet with a loose chondral fragment. This was debrided back to stable base with a motorized shaver. Reactive synovitis involving the patellofemoral articulation and the medial compartment was debrided with a motorized shaver. The gutters were clear debris. The knee was then thoroughly irrigated. The portals were closed with Steri-Strips. A sterile dressing was applied in addition to a compression stocking.
[2018-04-07 12:08] VITALS: TEMP 97
[2018-04-07] MEDS: fentaNYL (PF) 50 MCG/ML 2 ML AMP IV PRN ×3 (12:13→12:35)
[2018-04-07] MEDS ORDERED: MIDAZOLAM 2 MG/2 ML VIAL IVP ONE (12:48)
[2018-04-07 12:53] VITALS: RESP 18
[2018-04-07] MEDS ORDERED: HYDROcodone/APAP 5-325MG 1 EACH TAB PO ONE (13:48)
[2018-04-07 14:00] VITALS: BP 152/89; PULSE 86
== END 2018-04-07 14:30 | disposition home or self-care (01) ==
LOC: OR 09:05
PROVIDERS: ATTEND Orthopaedic Surgery
DX: S83.242A Other tear of medial meniscus, current injury, left knee, initial encounter (principal); S83.32XA Tear of articular cartilage of left knee, current, initial encounter; X58.XXXA Exposure to other specified factors, initial encounter; M65.862 Other synovitis and tenosynovitis, left lower leg; I10 Essential (primary) hypertension; E78.5 Hyperlipidemia, unspecified; Z86.73 Personal history of transient ischemic attack (TIA), and cerebral infarction without residual deficits; K21.9 Gastro-esophageal reflux disease without esophagitis; K58.9 Irritable bowel syndrome, unspecified; Z79.1 Long term (current) use of non-steroidal anti-inflammatories (NSAID); Z79.51 Long term (current) use of inhaled steroids; Z79.899 Other long term (current) drug therapy; Z88.8 Allergy status to other drugs, medicaments and biological substances; F17.210 Nicotine dependence, cigarettes, uncomplicated; Z88.2 Allergy status to sulfonamides
CPT/HCPCS: 81025; 29881; J2250; J1100; J2405; J2001; J3010; J1885; J1170; J0690; J0330; J2704

== ENCOUNTER → 2018-06-23 | Outpatient (CLI) | payer MEDICARE, OTHER ==
[2018-06-24 10:59] LABS: Alt. alternata IgE Class CLASS 0; Alternaria alternata IgE <0.35 kU/L (<0.35); Asperg. fumagatus IgE <0.35 kU/L (<0.35); Asperg. fumagatus IgE Class CLASS 0; Aureo. pullulans IgE <0.35 kU/L (<0.35); Birch(Com.Silvr) IgE <0.35 kU/L (<0.35); Birch(Com.Silvr) IgE Class CLASS 0; Candida albicans IgE Class CLASS 0; Cat Epith & Dander IgE <0.35 kU/L (<0.35); Cat Epith & Dander IgE Class CLASS 0; Clad herbarum IgE <0.35 kU/L (<0.35); Cockroach IgE <0.35 kU/L (<0.35); Com. Pigweed IgE <0.35 kU/L (<0.35); Com. Pigweed IgE Class CLASS 0; Cottonwood IgE <0.35 kU/L (<0.35); Dermato. Pteronyssinus IgE <0.35 kU/L (<0.35); Dermato. farinae IgE <0.35 kU/L (<0.35); Dermato. farinae IgE Class CLASS 0; Dog Dander IgE <0.35 kU/L (<0.35); English Plantain IgE Class CLASS 0; Epicoccum purpurascens Class CLASS 0; Epicoccum purpurascens IgE <0.35 kU/L (<0.35); Johnson Grass IgE Class CLASS 0; Lamb's Quarter IgE <0.35 kU/L (<0.35); Lamb's Quarter IgE Class CLASS 0; Maple (Box Elder) IgE <0.35 kU/L (<0.35); Maple (Box Elder) IgE Class CLASS 0; Mucor racemosus IgE <0.35 kU/L (<0.35); Mucor racemosus IgE Class CLASS 0; Oak IgE <0.35 kU/L (<0.35); Rhizopus nigricans IgE <0.35 kU/L (<0.35); S.rostrata/Helminth Class CLASS 0; S.rostrata/Helminth IgE <0.35 kU/L (<0.35); Sycamore(Mpl.Lf) IgE <0.35 kU/L (<0.35); Timothy Grass IgE <0.35 kU/L (<0.35); Walnut Tree IgE <0.35 kU/L (<0.35); Walnut Tree IgE Class CLASS 0; White Ash IgE Class CLASS 0
== END | disposition home or self-care (01) ==
LOC: LABWHC1 14:32
PROVIDERS: ATTEND Otolaryngology
DX: J30.89 Other allergic rhinitis (principal)
CPT/HCPCS: 36415; 86003

== ENCOUNTER → 2018-07-03 | Outpatient (CLI) | payer MEDICARE, OTHER ==
--- NOTE | 2018-07-03 09:18 | CT ---
EXAMINATION TYPE: CT sinus wo con DATE OF EXAM: 07/03/2018 COMPARISON: None HISTORY: Dizziness and near syncope recently. Sinus problems x [address] DLP: 609.[address] of the paranasal sinuses was performed in the axial and coronal planes. Bone and soft tissue settings are submitted. The paranasal sinuses demonstrate normal aeration and development. The paranasal sinuses are free of mucosal thickening or air fluid level. The osteal meatal units are patent bilaterally. The nasal septum is midline. No bony destructive changes are seen within the field of view. IMPRESSION: Normal unenhanced CT of the paranasal sinuses.
== END | disposition home or self-care (01) ==
LOC: RADCTMAIN 08:57
PROVIDERS: ATTEND Otolaryngology
DX: J32.9 Chronic sinusitis, unspecified (principal)
CPT/HCPCS: 70486

== ENCOUNTER → 2018-09-15 | Outpatient (CLI) | payer MEDICARE, OTHER ==
[2018-09-14 15:55] VITALS: BMI 26.7
[2018-09-15 13:44] VITALS: BP 120/79; PULSE 94; RESP 18
--- NOTE | 2018-09-15 15:14 | P.PAINCN ---
History of Present Illness - Reason for Consult Consult date: 09/15/18 - History of Present Illness This is an initial consultation visit for this 53 years old female with a chronic history of severe neck pain, and severe low back pain with radiation to the buttock area bilaterally, started more than 30 years ago, she reported that her neck pain radiating occasionally to the right upper extremity, and currently most of her pain is in the low back area, is constant and increases with any activity bending changing positions standing or sitting for long time was severe low back pain, she continued to ambulate without difficulty, but the pain intensity interfering with her quality of life, patient done physical therapy with only minimal benefit and she is done TENS unit was some relief, she denies any fever or night sweats but she denies any change in the bowel movement or urination, and she had no motor or sensory deficit, she has injection done by an urologist Dr. Sanchez without any benefit, she reported that the intensity of the pain is 7/10 increases with any activity to 8-9/10. Past Medical History Past Medical History: CVA/TIA, GERD/Reflux, Hyperlipidemia, Hypertension, Osteoarthritis (OA), Thyroid Disorder Additional Past Medical History / Comment(s): HX OF TIA'S, POSSIBLE SEIZURES- STATES SHE WILL NOT REMEMBER HOW SHE GOT SOMEWHERE OR WILL WAKE UP ON THE FLOOR. , HX OF "SEVERE CONCUSSION"., VARICOSE VEINS, STATES ARRYTHMIA., DDD WITH RUPTURED DISCS WITH BACK & NECK PAIN., COLITIS, IBS, PRE-CANCEROUR CERVICAL CELLS., ENVIRONMENTAL ALLERGIES. History of Any Multi-Drug Resistant Organisms: None Reported Past Surgical History: Breast Surgery, Cholecystectomy, Orthopedic Surgery, Tubal Ligation, Uterine Ablation Additional Past Surgical History / Comment(s): twisted ureter, LEFT ELBOW surgery, LEFT CARPAL TUNNEL, LEFT ROTATOR CUFF X2, NOAM BREAST BX. , TORN LEFT MENISCUS, DEVITATED SEPTUM & SINUS SURGERY. Past Anesthesia/Blood Transfusion Reactions: No Reported Reaction, Family History of Problems w/ Anesthesia, Motion Sickness Additional Past Anesthesia/Blood Transfusion Reaction / Comm: CLAUSTROPHOBIC. BROTHER=PONV Past Psychological History: Anxiety, Depression, Panic Disorder, PTSD Additional Psychological History / Comment(s): borderline peronality disorder, major depressive disorder, suidical tendencies- STATES SHE HAS COUNSELOR AND PHONE NUMBER IF SHE NEEDS TO TALK TO SOMEONE. Smoking Status: Current every day smoker Past Alcohol Use History: Occasional Additional Past Alcohol Use History / Comment(s): SMOKING 1 PPD, STARTED SMOKING AGE 17. Past Drug Use History: None Reported - Past Family History Father Family Medical History: Cancer, Deep Vein Thrombosis (DVT) Additional Family Medical History / Comment(s): history of Alzheimer's disease, coronary artery disease status post post 4 vessel CABG, CVA, SKIN CA Mother History Unknown: Yes Additional Family Medical History / Comment(s): Mother is alive at age 83 with history of hypertension. Son(s) Additional Family Medical History / Comment(s): patient has 2 sons and one has Depression Daughter(s) Family Medical History: No Reported History Additional Family Medical History / Comment(s): Patient has one daughter with no major medical problems. Brother(s) Family Medical History: Cancer Additional Family Medical History / Comment(s): patient has 5 brothers. One at age 27 from suicide. One has coronary artery disease status post 2 vessel CABG. Medications and Allergies Home Medications Medication Instructions Recorded Confirmed Type Metoprolol Succinate (ER) [Toprol 50 mg PO QAM 11/06/17 09/15/18 History Xl] Naproxen Sodium [Aleve] 440 mg PO BID PRN 03/31/18 09/15/18 History Cholecalciferol [Vitamin D3] 5,000 unit PO DAILY 09/14/18 09/15/18 History Cyanocobalamin (Vitamin B-12) 1,000 mcg PO DAILY 09/14/18 09/15/18 History [Vitamin B-12] Lisinopril [Zestril] 20 mg PO DAILY 09/14/18 09/15/18 History Multivit-Min/Iron/Folic/Lutein 1 each PO DAILY 09/14/18 09/15/18 History [Centrum Silver Women Tablet] clonazePAM 0.5 mg PO QAM 09/14/18 09/15/18 History clonazePAM 1 mg PO HS 09/14/18 09/15/18 History Allergies Allergy/AdvReac Type Severity Reaction Status Date / Time peanut Allergy Anaphylaxis Verified 09/15/18 13:33 Sulfa (Sulfonamide Allergy Vomiting Verified 09/15/18 13:33 Antibiotics) sumatriptan [From Imitrex] Allergy Anaphylaxis Verified 09/15/18 13:33 sumatriptan succinate Allergy Anaphylaxis Verified 09/15/18 13:33 [From Imitrex] tree nut [Nut] Allergy Anaphylaxis- Verified 09/15/18 13:33 ALL NUTS Physical Exam Vitals: Vital Signs Pulse Resp BP Pulse Ox 09/15/18 13:35 94 18 120/79 100 Social history : smoker , NO ETOH , NO Illegal drugs use Review of Systems : 1- Constitutional : no chills , no fever , no night sweats , 2- Ears : no ear discharge , no change in hearing 3-Nose, Mouth ,Throat ; no bleeding gums, no sore throat , no epistaxis , 4-Cardiovascular : Denies chest pain, , no orthopnea , no palpitation 5-Respiratory : Denies cough , no dyspnea , no hemoptysis 6-Gastrointestinal :, no change in bowel habits , no coffee- ground emesis . 7-Genitourinary : No hematuria , no discharge , no incontinence, 8-Musculoskeletal : No gait dysfunction , report low back pain , reports severe neck pain , 9- Neurological : no ataxia , no tremor , no sezure , 10-Psychatric , history of anxiety and depression, suicidal and and tendency 11- Endocrine : no cold intolerence , no polyuria , no polydypsia , 12-Hematologic : no easy bleeding , no easy brusing , 13-Allergic / immunology : no angioedema , no wheezing ,no allergic rhinitis 14-Integumentary : no brttle nails , no change hair / nails , no foot/leg ulcers . Physical Examinations : 1-Constitutional : Cooperative , not in acute distress . 2-HEENT : nech ; supple , no Lymphadenopathy , no Thyromegaly , :eyes , no icterus, no photophobia . ENT : , normal oropharynx , no Thrush 3- Respiratory : Chest clear to auscultations Bilaterally , no wheezing . 4- Cardiovascular : regular rate and rhythem , S1 , S2 , no S3 , no S4. 5- Gastrointestinal: abdomen soft no tenderness , no organomegally . 6- Genitourinary : Defferred . 7-Integumentary : No cellulitis , no ulcers , normal skin turgor , no cyanotic . 8- neurologic : Cranial nerve II to XII intact , no focal neurological deffecit 9-psychatric : alert , oriented X 3 , appropriate affect , intact judgment and insight . 10-Lymphatic : no Lymphadenopathy. 11- musculoskeltal: normal gait Cervical Spine motor stregnth in the deltoid and biceps, normal right side , normal Left side motor stregnth biceps and the wrist extensors normal right side ,normal left side . motor stregnth in the triceps muscle . normal Right side , normal Left side deep tendon reflexes normal at the biceps , normal at Brachioradialis , normal at triceps. positive cervical facet loading test . Lumber spine moter stegnth lower extremities ,thigh and legs 5/5 Right side , 5/5 Left side deep tendon reflexes : normal Knee Jerk , normal ankle Jerk positive lumber facet Loading Test Range of motion of the lumbar spine Flexion 30 degrees, extension 10 degrees strait leg raising test , positive at 60 degree Fabere test positive RT and positive LT . Sever tenderness over the Sacroiliac joint on the R and L sides Results Comments: MRI of the cervical spine multilevel cervical bulging disc disease at C3 4, C4- 5 and C5- 6 and C6 7, and multilevel cervical facet arthropathy from C3 4 ,C45 ,C5-6 C6 7. MRI of the lumbar spine= L4 5 facet hypertrophy L5-S1 bulging disc disease and facet joint hypertrophy and left foraminal stenosis Assessment and Plan Plan: Assessment and plan=1-chronic severe low back pain secondary to lumbar degenerative disc disease and lumbar spondylosis with lumbar facet arthropathy. 2-chronic severe neck pain secondary to cervical degenerative disc disease and cervical spondylosis Patient from physical therapy , she continued to have pain with the TENS unit and medication management Most of the pain currently in the low back area patient preferred to focus the treatment in the lumbar area, description would be scheduled to have diagnostic medial branch block lumbar area at L3/L4 5/L5-S1, and if she had a good result after the diagnostic block then we will proceed with the radiofrequency ablation of the medial branch lumbar area, after we finished treatment for the lumbar area but can focus on the cervical spine by doing diagnostic medial branch block cervical area, Time with Patient: Greater than 30 PQRS Measure Charge Sheet Measure #130: Documentation of Current Meds in Medical Chart: Patient's medications documented in chart Measure #226: Tobacco Use: Screen & Cessation Intervention: Pt screened for tobacco use AND intervention given Measure #111: Pneumonia Vaccination: Pneumococcal vaccine NOT administered or previously given Measure #47: Advance Care Plan: Advance care planning discussed & documented, pt chose/unable to give Measure #412: Opioid Treatment Agreement: No documentation of signed opioid treatment agreement Measure #408: Opioid Therapy Follow-up Evaluation: Patient had NO f/u eval minimum every 3 months during opioid therapy Measure #317: Preventitive Care & Scrn High Bld Press & F/U: Normal blood pressure, f/u not required Measure #128: Body Mass Index (BMI) Screening & Follow-up: BMI documented ABOVE normal parameters - f/u documented Measure #131: Pain Assessment & Follow-up: Pain positive & plan documented, Follow-up scheduled Measure #431: Unhealthy Alcohol Use Preventative Care & Scrn: Patient not identified as an unhealthy alcohol user PQRS Narrative: Smoking Status Current every day smoker Do You Want the Pneumonia No Vaccine AT THIS TIME? Blood Pressure 120/79 Pain Intensity [Generalized] 7 Scale Used Numeric (1 - 10) Hx Alcohol Use (MH) Yes Home Medications: Ambulatory Orders Metoprolol Succinate (ER) [Toprol Xl] 50 mg PO QAM 11/06/17 Naproxen Sodium [Aleve] 440 mg PO BID PRN 03/31/18 Cholecalciferol [Vitamin D3] 5,000 unit PO DAILY 09/14/18 Cyanocobalamin (Vitamin B-12) [Vitamin B-12] 1,000 mcg PO DAILY 09/14/18 Lisinopril [Zestril] 20 mg PO DAILY 09/14/18 Multivit-Min/Iron/Folic/Lutein [Centrum Silver Women Tablet] 1 each PO DAILY clonazePAM 0.5 mg PO QAM 09/14/18 clonazePAM 1 mg PO HS 09/14/18
== END ==
LOC: PNWHC3 13:07
PROVIDERS: ATTEND Specialist
DX: G89.29 Other chronic pain (principal); M51.36 Other intervertebral disc degeneration, lumbar region; M47.816 Spondylosis without myelopathy or radiculopathy, lumbar region; M46.96 Unspecified inflammatory spondylopathy, lumbar region; M50.30 Other cervical disc degeneration, unspecified cervical region; M47.812 Spondylosis without myelopathy or radiculopathy, cervical region; F17.200 Nicotine dependence, unspecified, uncomplicated; Z79.899 Other long term (current) drug therapy; Z88.2 Allergy status to sulfonamides; Z88.8 Allergy status to other drugs, medicaments and biological substances; Z91.010 Allergy to peanuts; Z79.1 Long term (current) use of non-steroidal anti-inflammatories (NSAID)
CPT/HCPCS: 99211

== ENCOUNTER 2018-09-17 06:19 | Day surgery (SDC) | payer MEDICARE, OTHER ==
[2018-09-17 07:15] VITALS: RESP 16; TEMP 97.4
[2018-09-17] MEDS ORDERED: LIDOCAINE 1% 20 ML VIAL (10MG/ML) FOR IV START INTRADERMA ONE (07:26)
[2018-09-17] MEDS ORDERED: LACTATED RINGERS 1,000 ML IV ONE (07:26)
--- NOTE | 2018-09-17 07:56 | P.PCN ---
Date of Procedure: 09/17/18 Procedure(s) Performed: PREOPERATIVE DIAGNOSIS : 1- Lumbar spondylosis with Facet Arthropathy without myelopathy . 2- Lumber degenerative disc disease POSTOPERATIVE DIAGNOSIS: 1- Lumbar spondylosis with Facet Arthropathy without myelopathy . 2- Lumber degenerative disc disease PROCEDURE: Diagnostic bilateral L3 -4 , L4 -5 , and L5-S1 medial branch block under fluoroscopy ANESTHESIA: Local with Ropivacain 0.5 % 6 ml , moderate sedation with intravenous Versed 2 mg and Fentanyl 50 mcg. EBL: Minimal COMPLICATION: None. IV FLUIDS: 100 mL of normal saline. PROCEDURE INDICATION: Chronic low back pain secondary to Facet arthropathy unresponsive to conservative treatment. PROCEDURE DESCRIPTION: the patient was seen and identified in the preop holding area , risks and benefits and possible complications of the procedure and alternative were discussed with the patient, and the patient agreed to proceed with the procedure and signed the consent IV was started and vital signs monitored during the procedure and fluoroscopy was used to maximize the benefit and accuracy of the needle placement, and sedation was given to decrease patient anxiety, patient was taken to the procedure room and placed in prone position vital signs monitored in the back prepped with chlorhexidine X3 then under strict sterile technique using a right oblique fluoroscopy ,the junction of the transverse process and the superior articulating process of the right L3- 4 , L4- 5, and L5-S1 vertebra which corresponding to the fluoroscopy image of the eye of the Gasper dog on the block side for the medial branches and subsequently , after local infiltration of skin and subcu tissuies with Ropivacaine 0.5 % , one mL at each level , then 22-gauge Quincke-type needles , 3 needle was used , each one of them placed at the junction of the base of the transverse process and the superior articular process at the appropriate level, and the needle was advanced until the periosteum contacted, needle placement confirmed with AP oblique and lateral view and after appropriate needle placement confirmed, and after negative aspiration for heme and CSF and there was no paresthesia 1-1/2 mL of Ropivacaine 0.5% , then half mL injected at each level after negative aspiration the needle subsequently removed and the same procedure repeated for the left side at left side at L3-4, L4- 5 and L5-S1 levels. At the end of the procedure and the needles removed and a bandage applied after the skin was cleaned the cleaning solution patient taken to recovery room in stable condition and monitors in the recovery room for 20-30 minutes and discharged home in stable condition after discharge criteria met and patient will follow up with the pain clinic in 2-4 weeks I did not use any steroid today.
[2018-09-17] MEDS ORDERED: IV FLUID CONTINUATION 1,000 ML IV ONE (08:04)
[2018-09-17] MEDS ORDERED: SODIUM CHLORIDE 0.9% 500 ML 500 ML IV SCH (08:08)
[2018-09-17 08:21] VITALS: BP 121/75; PULSE 74
--- NOTE | 2018-09-17 08:41 | FL ---
EXAMINATION TYPE: FL guided pain mgmt statistic DATE OF EXAM: 09/17/2018 CLINICAL HISTORY: Low back pain. TECHNIQUE: Fluoroscopy. COMPARISON: None. FINDINGS: Fluoroscopic guidance was provided during pain relief procedure performed by Dr. Mcgee . A total of 16 seconds of fluoroscopic time was utilized during the procedure and 4 spot images are acquired. Images acquired shows needle localization of the lumbosacral spine. IMPRESSION: As Above.
== END 2018-09-17 08:38 | disposition home or self-care (01) ==
LOC: ORPAIN 06:19
PROVIDERS: ATTEND Specialist
DX: G89.29 Other chronic pain (principal); M47.816 Spondylosis without myelopathy or radiculopathy, lumbar region; M51.36 Other intervertebral disc degeneration, lumbar region; M51.27 Other intervertebral disc displacement, lumbosacral region; M48.061 Spinal stenosis, lumbar region without neurogenic claudication; M50.30 Other cervical disc degeneration, unspecified cervical region; M47.812 Spondylosis without myelopathy or radiculopathy, cervical region; M50.21 Other cervical disc displacement, high cervical region; K21.9 Gastro-esophageal reflux disease without esophagitis; E78.5 Hyperlipidemia, unspecified; I10 Essential (primary) hypertension; M19.90 Unspecified osteoarthritis, unspecified site; E07.9 Disorder of thyroid, unspecified; K58.9 Irritable bowel syndrome, unspecified; F40.240 Claustrophobia; F41.0 Panic disorder [episodic paroxysmal anxiety]; F41.9 Anxiety disorder, unspecified; F43.10 Post-traumatic stress disorder, unspecified; F17.210 Nicotine dependence, cigarettes, uncomplicated; Z79.899 Other long term (current) drug therapy; Z88.2 Allergy status to sulfonamides; Z88.8 Allergy status to other drugs, medicaments and biological substances; Z91.018 Allergy to other foods; Z91.010 Allergy to peanuts; Z98.51 Tubal ligation status; Z86.73 Personal history of transient ischemic attack (TIA), and cerebral infarction without residual deficits
CPT/HCPCS: 64493; 64494; 64495; J2250; J3010; 99152

== ENCOUNTER 2018-10-01 06:40 | Day surgery (SDC) | payer MEDICARE, OTHER ==
[2018-09-29 10:46] VITALS: BMI 26.9
[2018-10-01] MEDS ORDERED: SODIUM CHLORIDE 0.9% 500 ML 500 ML IV SCH (07:00)
[2018-10-01 07:17] VITALS: TEMP 97.6
[2018-10-01] MEDS ORDERED: LACTATED RINGERS 1,000 ML IV ONE (07:24)
[2018-10-01] MEDS ORDERED: LIDOCAINE 1% 20 ML VIAL (10MG/ML) FOR IV START INTRADERMA ONE (07:25)
--- NOTE | 2018-10-01 08:01 | P.PCN ---
Date of Procedure: 10/01/18 Procedure(s) Performed: PREOPERATIVE DIAGNOSIS : 1- Lumbar spondylosis with Facet Arthropathy without myelopathy . 2- Lumber degenerative disc disease POSTOPERATIVE DIAGNOSIS: 1- Lumbar spondylosis with Facet Arthropathy without myelopathy . 2- Lumber degenerative disc disease PROCEDURE: Diagnostic bilateral L3 -4 , L4 -5 , and L5-S1 medial branch block under fluoroscopy ANESTHESIA: Local with Ropivacain 0.5 % 6 ml , moderate sedation with intravenous Versed 2 mg and Fentanyl 50 mcg. EBL: Minimal COMPLICATION: None. IV FLUIDS: 100 mL of normal saline. PROCEDURE INDICATION: Chronic low back pain secondary to Facet arthropathy unresponsive to conservative treatment. PROCEDURE DESCRIPTION: the patient was seen and identified in the preop holding area , risks and benefits and possible complications of the procedure and alternative were discussed with the patient, and the patient agreed to proceed with the procedure and signed the consent IV was started and vital signs monitored during the procedure and fluoroscopy was used to maximize the benefit and accuracy of the needle placement, and sedation was given to decrease patient anxiety, patient was taken to the procedure room and placed in prone position vital signs monitored in the back prepped with chlorhexidine X3 then under strict sterile technique using a right oblique fluoroscopy ,the junction of the transverse process and the superior articulating process of the right L3- 4 , L4- 5, and L5-S1 vertebra which corresponding to the fluoroscopy image of the eye of the Gasper dog on the block side for the medial branches and subsequently , after local infiltration of skin and subcu tissuies with Ropivacaine 0.5 % , one mL at each level , then 22-gauge Quincke-type needles , 3 needle was used , each one of them placed at the junction of the base of the transverse process and the superior articular process at the appropriate level, and the needle was advanced until the periosteum contacted, needle placement confirmed with AP oblique and lateral view and after appropriate needle placement confirmed, and after negative aspiration for heme and CSF and there was no paresthesia 1-1/2 mL of Ropivacaine 0.5% ,mixed with 20 mg Depo-Medrol , then half mL injected at each level after negative aspiration the needle subsequently removed and the same procedure repeated for the left side at left side at L3-4, L4- 5 and L5-S1 levels. At the end of the procedure and the needles removed and a bandage applied after the skin was cleaned the cleaning solution patient taken to recovery room in stable condition and monitors in the recovery room for 20-30 minutes and discharged home in stable condition after discharge criteria met and patient will follow up with the pain clinic in 2-4 weeks
[2018-10-01] MEDS ORDERED: IV FLUID CONTINUATION 1,000 ML IV ONE (08:08)
[2018-10-01 08:19] VITALS: BP 108/64; PULSE 81; RESP 16
--- NOTE | 2018-10-01 10:30 | FL ---
Fluoroscopy HISTORY: Pain 12 seconds fluoroscopy time supplied to the referring clinician. 4 intraoperative C-arm images docum ent the procedure. See dictated report from anesthesia.
== END 2018-10-01 08:40 | disposition home or self-care (01) ==
LOC: ORPAIN 06:40
PROVIDERS: ATTEND Anesthesiology
DX: M47.816 Spondylosis without myelopathy or radiculopathy, lumbar region (principal); M51.36 Other intervertebral disc degeneration, lumbar region; G89.29 Other chronic pain; Z88.2 Allergy status to sulfonamides; Z88.8 Allergy status to other drugs, medicaments and biological substances; Z91.010 Allergy to peanuts
CPT/HCPCS: 81025; 64493; 64494; 64495; J2250; J1030; J3010; 99152

== ENCOUNTER → 2018-10-19 | Outpatient (CLI) | payer MEDICARE, OTHER ==
[2018-10-19 14:28] VITALS: BP 128/81; PULSE 79
--- NOTE | 2018-10-19 14:37 | P.PN ---
Subjective Progress Note Date: 10/19/18 This is a 53-year-old lady with history of chronic lower back pain and also mid back pain. The patient had a diagnostic lumbar medial branch block bilaterally which will gave her more than 80% of pain relief. Today, pt denies new-onset weakness, bowel/bladder incontinence, or any other signs or symptoms of cauda equina syndrome. There are no signs of acute intoxication, and no indications of medication diversion or overuse. In addition to above, 13-point review of systems is also negative for chest pain , shortness of breath, changes in vision, changes in hearing, new onset weakness , abdominal pain, diarrhea, extreme fatigue, malaise, fever, skin changes, homicidal or suicidal ideation, or bowel or bladder incontinence. Vital Signs: Reviewed in EMR Gen: AAOx3, NAD HEENT: PERRLA,hearing grossly normal Pulm: resp unlabored,CTA Heart:S1,S2, No Mur Positive tenderness in the thoracic paravertebral musculature Normal muscle strength in the lower extremities bilaterally Neuro: CN II-XII grossly intact, Imaging: Reviewed in EMR/chart Assessment: Lumbar spondylosis without myelopathy Thoracic spondylosis without myelopathy Plan: 1. Explanation: Opioid and psychological risk scores were reviewed. Diagnoses , prognoses, and multiple treatment options including but not limited to physical therapy, interventional therapies, adjuvant medical therapies, narcotic medication therapies, and surgery were discussed with the patient and all questions were answered to the patient's satisfaction. 2. Opioid agreement: Signed with the patient and the patient is warned not to use opioids while driving or before driving and not to combine opioids with benzodiazepines or alcohol. 3. Counseling: The patient was counseled extensively on SMOKING CESSATION, BODY MASS INDEX, EXERCISE. Specifically, the patient was instructed regarding the importance of smoking cessation, obesity, and exercise in the context of both chronic pain and overall health. 4. Procedures: Scheduled for right medial branch RFA for levels L3 4, L4-L5, and L5-S1. And then we'll schedule for later on for 5. Consultations: None 6. Investigations: None 7. Medications: None at this point 8. Disposition: Percent occlusion the above-mentioned procedure 9. Maps were reviewed and were appropriate. PQRS measures: 1-Patient's medications are documented in the chart. 2-Tobacco use is negative, counseling given 3-Patient has had a pneumococcal vaccine. 4-Advanced care planning discussed, patient unable to give 5-Opioid contract signed with the patient. 6-Pain positive, follow-up visit or procedure scheduled 7-Patient's blood pressure measured and documented within normal limits. 8-Patient's weight was measured, and body mass index ABOVE the normal limits, and counseling was done. Patient instructed to follow up with PCP. 9-Patient WAS NOT identified as an unhealthy alcohol user. Objective - Vital Signs Vital signs: Vital Signs Temp Pulse 79 10/19/18 14:17 Resp BP 128/81 10/19/18 14:17 Pulse Ox Intake & Output 10/18/18 10/19/18 10/19/18 18:59 06:59 18:59 Weight 67.132 kg
== END ==
LOC: PNWHC3 14:11
PROVIDERS: ATTEND Anesthesiology
DX: M47.816 Spondylosis without myelopathy or radiculopathy, lumbar region (principal); M47.814 Spondylosis without myelopathy or radiculopathy, thoracic region
CPT/HCPCS: 99211

== ENCOUNTER 2018-10-28 08:11 | Day surgery (SDC) | payer MEDICARE, OTHER ==
[2018-10-22 15:06] VITALS: BMI 26.2
[~2018-10-28 08:11] MED LIST changes: -DEXAMETHASONE SOD PHOSPHATE 10 MG/ML 1 ML VIAL IV ONE; -LACTATED RINGERS 1,000 ML IV SCH; -LIDOCAINE 1% 20 ML VIAL (10MG/ML) FOR IV START INTRADERMA PRN; -MIDAZOLAM 2 MG/2 ML VIAL IV PRN; -ONDANSETRON 4 MG/2 ML VIAL IVP ONE; +SODIUM CHLORIDE 0.9% 500 ML 500 ML IV SCH; -ceFAZolin 1,000 MG in DEXTROSE/WATER 1 50ML.BAG IVPB ONE
[2018-10-28 08:58] VITALS: RESP 16; TEMP 98.4
[2018-10-28] MEDS ORDERED: LACTATED RINGERS 1,000 ML IV ONE ×2 (09:13→10:14)
[2018-10-28] MEDS ORDERED: LIDOCAINE 1% 20 ML VIAL (10MG/ML) FOR IV START INTRADERMA ONE (09:13)
--- NOTE | 2018-10-28 10:06 | P.PCN ---
Date of Procedure: 10/28/18 Procedure(s) Performed: PREOPERATIVE DIAGNOSIS: 1-Lumbar Spondylosis with Facet Arthropathy without myelopathy. 2- Lumber degenerative disc disease POSTOPERATIVE DIAGNOSIS: 1- Lumbar Spondylosis with Facet Arthropathy without myelopathy. 2- Lumber degenerative disc disease PROCEDURES : Left Radiofrequency thermocoagulation, L3-L4, L4-L5, and L5-S1 medial branch, with fluoroscopic guidance ANESTHESIA: Moderate sedation with intravenous versed 2 mg and fentaneyl 150 mcg, and local infiltration with Ropivacaine 0.5 % . EBL: Minimal PROCEDURE INDICATION: The patient with low back pain secondary to lumbar facet arthropathy who had more than 50% relief of her pain with previous diagnostic lumbar medial branch block with bupivacaine. PROCEDURE DESCRIPTION / TECHNIQUE: The patient was seen and identified in the preoperative area. Risks, benefits, complications, including but not limited to risk of infection ,bleeding , allergic reactions to the medications and no complete pain releife , and alternatives were discussed with the patient, the patient agreed to proceed with the procedure and signed the consent. IV was started. Vital signs remained stable throughout the procedure. Patient was taken to the OR and time out was completed. The patient was placed in the prone position on the procedure table. The lumber area was prepped and draped in the usual sterile fashion. . Vital signs were closely monitored during the procedure .IV sedation was used during the procedure to decrease patients anxiety. Using AP and then oblique fluoroscopy, the ``eye of the Gasper dog corresponding to the connection between the superior and transverse articular processes of Left L3, L4, and L5 were identified, marked, and localized with 1 % lidocaine. Subsequently, a 18 [id number] radiofrequency cannula with a 10- mm active tip was advanced guided by fluoroscopy to each of the``eyes of the Gasper dog at Left L3, L4, and L5. Each site then underwent sensory testing at 50 Hz and 0 to 1 volt and motor testing at 2.5 Hz and 0 to 3 volt with local stimulation, but no radicular symptoms down the legs. Thereafter the Left L3-4, L4-5, and L5-S1 sites underwent radiofrequency thermocoagulation at 80 degrees celsius for 90 seconds after injecting 0.5 ml of PF Ropivacaine 1ml, then after the thermocoagulation done , 1 ml of the block solution containing Depo-Medrol 40 mg and 3 ml of Ropivacaine 0.5% was injected at the Left L3-4 , L4-5 , and L5-S1, levels after negative aspiration of CSF and blood and with no paresthesias. Cannulas were retracted while injecting lidocaine 1% until the needle is out. At the end of the procedure, the skin was cleansed and bandages were applied. COMPLICATIONS: No acute complications. DISPOSITION / PLANS: The patient was placed in a supine position and transferred to the recovery area in a stable condition for observation and was discharged from the recovery room after meeting discharge criteria. Home discharge instructions given to the patient by the staff. The patient was reexamined prior to discharge. The patient will schedule a follow up in the clinic in 2-4 weeks.
[2018-10-28 10:29] VITALS: BP 122/66; PULSE 70
--- NOTE | 2018-10-28 10:37 | FL ---
Fluoroscopy INDICATION: Pain FINDINGS: Fluoroscopy time: 13 seconds. Images obtained: 3. IMPRESSIONS: 1. Documentation of fluoroscopy.
== END 2018-10-28 10:46 | disposition home or self-care (01) ==
LOC: ORPAIN 08:11
PROVIDERS: ATTEND Specialist
DX: M47.816 Spondylosis without myelopathy or radiculopathy, lumbar region (principal); M51.36 Other intervertebral disc degeneration, lumbar region
CPT/HCPCS: 64636 ×2; 64635; J2250; J1030; J3010; 99152

== ENCOUNTER 2018-11-12 08:12 | Day surgery (SDC) | payer MEDICARE, OTHER ==
[2018-11-06 15:14] VITALS: BMI 25.4
[2018-11-12 08:27] VITALS: TEMP 98.4
[2018-11-12] MEDS ORDERED: LIDOCAINE 1% 20 ML VIAL (10MG/ML) FOR IV START INTRADERMA ONE (08:30)
[2018-11-12] MEDS ORDERED: LACTATED RINGERS 1,000 ML IV ONE (08:30)
--- NOTE | 2018-11-12 08:47 | P.PCN ---
Date of Procedure: 11/12/18 Surgeon: Igor Hammond Description of Procedure: PREOPERATIVE DIAGNOSIS : Lumbar spondylosis with Facet Arthropathy without myelopathy POSTOPERATIVE DIAGNOSIS: same PROCEDURE: Diagnostic lumbar medial branch block with fluoroscopy at bilateral L4, L5, sacral ala ANESTHESIA: Local anesthetic Surgeon: Igor Hammond MD PROCEDURE INDICATION: This is a very pleasant 53-year-old woman with a history of intractable low back pain. She presents for her second set of lumbar diagnostic medial branch nerve blocks. She reports substantial pain relief from her previous procedure as well as significant improvement in her function. She presents today for her second lumbar medial branch nerve block. If this procedure for chair significant relief of her pain but is not long lasting, I would recommend her for any frequency ablation. PROCEDURE DESCRIPTION: the patient was seen and identified in the preop holding area , risks and benefits and possible complications of the procedure and alternative were discussed with the patient, and the patient agreed to proceed with the procedure and signed the consent IV was started and vital signs monitored during the procedure and fluoroscopy was used to maximize the benefit and accuracy of the needle placement, and sedation was given to decrease patient anxiety, patient was taken to the procedure room and placed in prone position vital signs monitored in the back prepped. Under strict sterile technique using a right oblique fluoroscopy ,the junction of the transverse process and the superior articulating process of the left L3- 4 , L4- 5, and L5-S1 vertebra which corresponding to the fluoroscopy image of the eye of the Gasper dog on the block side for the medial branches and subsequently , after local infiltration of skin and subcutaneous tissues with lidocaine 1% one mL at each level ,then one 25-gauge Quincke-type needles was placed at the junction of the base of the transverse process and the superior articular proc ess at the appropriate level, and the needle was advanced until the periosteum contacted, needle placement confirmed with AP oblique and lateral view and after appropriate needle placement confirmed, and after negative aspiration, 0.5 mL of Marcaine 0.5% mixed with 40 mg depomedrol in divided doses was injected at each level and the needle subsequently removed this procedure was then repeated on the right side. Total dose of Depo-Medrol was 80 mg and 6 mL of 0.5% bupivacaine. At the end of the procedure and the needles removed and a bandage applied after the skin was cleaned the cleaning solution patient taken to recovery room in stable condition and monitors in the recovery room for 20-30 minutes and discharged home in stable condition after discharge criteria met and patient will follow up with the pain clinic in 2-4 weeks EBL: Minimal COMPLICATION: None.
[2018-11-12 09:20] VITALS: RESP 18
[2018-11-12] MEDS ORDERED: IV FLUID CONTINUATION 1,000 ML IV ONE (09:27)
[2018-11-12 09:35] VITALS: BP 109/71; PULSE 80
--- NOTE | 2018-11-12 10:09 | FL ---
EXAMINATION TYPE: FL guided pain mgmt statistic DATE OF EXAM: 11/12/2018 COMPARISON: NONE HISTORY: Back pain TECHNIQUE: Fluoroscopy FINDINGS: Fluoroscopic guidance was provided during procedure performed by Dr. Hammond. A total of 6 seconds of fluoroscopic time was utilized during the procedure and 2 spot images was acquired demons trating multilevel localization of the lumbar spine. IMPRESSION: As Above.
== END 2018-11-12 09:51 | disposition home or self-care (01) ==
LOC: ORPAIN 08:12
PROVIDERS: ATTEND Pain Medicine Pain Medicine
DX: M47.816 Spondylosis without myelopathy or radiculopathy, lumbar region (principal); Z88.2 Allergy status to sulfonamides; Z88.8 Allergy status to other drugs, medicaments and biological substances
CPT/HCPCS: 81025; 64635; 64636; J2250; J1030; J3301; J2001; 99152

== ENCOUNTER → 2018-12-10 | Outpatient (CLI) | payer MEDICARE, OTHER ==
[2018-12-10 12:48] VITALS: BP 103/59; PULSE 93; RESP 16
--- NOTE | 2018-12-10 13:25 | P.PAINPG ---
Subjective Progress Note Date: 12/10/18 This is a follow-up visit for this 53 years old female with a chronic history of severe low back pain patient diagnosed with lumbar spondylosis, recently we have been radiofrequency ablation of the medial branch lumbar area, and that helped her low back pain significantly, currently she is complaining of severe mid back pain, she is increasing with any movement, interfering with her quality of life, she continued to use Motrin and naproxen and alternating between these 2 medications as needed, she denies any side effect of the medication, she denies any motor or sensory deficits, he denies any fever or night sweats, and she reported the pain in the mid back area is not radiated to the front and is not ready to the lower extremity. Objective - Vital Signs Vital signs: Vital Signs Temp Pulse 93 12/10/18 12:34 Resp 16 12/10/18 12:34 BP 103/59 12/10/18 12:34 Pulse Ox 94 L 12/10/18 12:34 Intake & Output 12/09/18 12/10/18 12/10/18 18:59 06:59 18:59 Weight 63.503 kg - Exam Physical Examinations : -Constitutiona : Cooperative , not in acute distress . -HEENT : nech ; supple , no Lymphadenopathy , normal thyroid size . eyes : no ptosis , no icterus, no photophobia . ENT : normal of hearing , normal oropharynx , no Thrush . - Respiratory : Chest clear to auscultations Bilaterally , no wheezing , no Rhonchi . - Cardiovascula : regular rate and rhythem , S1 , S2 , no S3 , no S4. - Gastrointestina : abdomen soft no tenderness , bowel sounds , no organomegally . - Genitourinary : Defferred . - neurologic : Cranial nerve II to XII intact , no focal neurological deffecit . -psychatric : alert , oriented X 3 , appropriate affect , intact judgment and insight . -Lymphatic : no Lymphadenopathy . - musculoskeltal : Thoracic Spine Flexion and extension of the thoracic spine associated with pain. facet loading test . Positive in the thoracic area . Lumber spine moter stegnth lower extremities ,thigh and legs 5/5 Right side , 5/5 Left side Assessment and Plan Plan: Assessment and plan= Chronic low back pain secondary to lumbar spondylosis with lumbar facet arthropathy, pain improved after radiofrequency ablation of the medial branch lumbar area Chronic mid back pain secondary to thoracic spondylosis, we'll order an MRI of the thoracic spine, and she will follow up in the pain clinic in 2 weeks Time with Patient: Less than 30 PQRS Measure Charge Sheet Measure #130: Documentation of Current Meds in Medical Chart: Patient's medications documented in chart Measure #226: Tobacco Use: Screen & Cessation Intervention: Pt screened for tobacco use AND intervention given Measure #111: Pneumonia Vaccination: Pneumococcal vaccine NOT administered or previously given Measure #47: Advance Care Plan: Advance care planning discussed & documented, pt chose/unable to give Measure #412: Opioid Treatment Agreement: No documentation of signed opioid treatment agreement Measure #408: Opioid Therapy Follow-up Evaluation: Patient had NO f/u eval minimum every 3 months during opioid therapy Measure #317: Preventitive Care & Scrn High Bld Press & F/U: Normal blood pressure, f/u not required Measure #128: Body Mass Index (BMI) Screening & Follow-up: BMI documented within normal parameters Measure #131: Pain Assessment & Follow-up: Pain positive & plan documented, Follow-up scheduled Measure #431: Unhealthy Alcohol Use Preventative Care & Scrn: Patient not identified as an unhealthy alcohol user PQRS Narrative: Smoking Status Current every day smoker Do You Want the Pneumonia No Vaccine AT THIS TIME? Blood Pressure 103/59 Pain Intensity [Lower 7 Posterior Back] Scale Used Numeric (1 - 10) Hx Alcohol Use (MH) Yes Home Medications: Ambulatory Orders Metoprolol Succinate (ER) [Toprol Xl] 50 mg PO QAM 11/06/17 Naproxen Sodium [Aleve] 440 mg PO BID PRN 03/31/18 Cholecalciferol [Vitamin D3] 5,000 unit PO DAILY 09/14/18 Cyanocobalamin (Vitamin B-12) [Vitamin B-12] 1,000 mcg PO DAILY 09/14/18 Lisinopril [Zestril] 20 mg PO DAILY 09/14/18 Multivit-Min/Iron/Folic/Lutein [Centrum Silver Women Tablet] 1 each PO DAILY 09/14/18 [place]on-3 Fatty Acids/Fish Oil [Fish Oil 1,000 mg Softgel] 1 each PO BID 10/19/18 Ibuprofen 800 mg PO Q6HR PRN 11/06/18 Controlled Substance Measures - Controlled Substance Measures Is patient prescribed a controlled substance at discharge?: No
== END ==
LOC: PNWHC3 12:17
PROVIDERS: ATTEND Specialist
DX: G89.29 Other chronic pain (principal); M47.816 Spondylosis without myelopathy or radiculopathy, lumbar region; M46.96 Unspecified inflammatory spondylopathy, lumbar region; F17.200 Nicotine dependence, unspecified, uncomplicated; Z79.899 Other long term (current) drug therapy; Z79.1 Long term (current) use of non-steroidal anti-inflammatories (NSAID)
CPT/HCPCS: 99211

== ENCOUNTER → 2019-01-02 | Outpatient (CLI) | payer MEDICARE, OTHER ==
--- NOTE | 2019-01-03 19:54 | MR ---
EXAMINATION TYPE: MR thoracic spine wo con DATE OF EXAM: 01/02/2019 COMPARISON: NONE HISTORY: TSP pain, Spondylosis without myelopathy TECHNIQUE: Multiplanar, multisequence imaging of thoracic spine is performed without contrast FINDINGS: Coronal images show slight levoconvex scoliotic curvature centered in the upper thoracic sp ine. Spinal cord shows normal course, caliber, and signal as it courses the thoracic spine. Some mul tilevel Schmorl nodes are seen in the lower endplates of the lower thoracic spine posteriorly. Disc s pace heights are maintained. No large posterior disc herniations are seen on sagittal images. There a re posterior disc herniation C5-C6 and C6-C7 level effacing anterior thecal sac on the sagittal T2 co mment sequences. Bone marrow signal intensity shows some heterogeneity with small hemangioma posterio rly T5 level sagittal image 7 noted. Mild multilevel anterior spurring is seen. Review of the axial images shows tiny central disc protrusion effacing the anterior thecal sac at T11 -T12 level axial image 5. Visualized upper abdomen and thorax are felt within normal limits. IMPRESSION: Slight scoliotic curvature with mild multilevel spurring and tiny disc herniation T11-T12 level.
== END | disposition home or self-care (01) ==
LOC: RADMRIMAIN 12:48
PROVIDERS: ATTEND Specialist
DX: M51.24 Other intervertebral disc displacement, thoracic region (principal); M41.84 Other forms of scoliosis, thoracic region
CPT/HCPCS: 72146

== ENCOUNTER 2019-06-11 16:24 | Emergency (ER) | payer OTHER, MEDICARE ==
[2019-06-11] MEDS ORDERED: KETOROLAC 60 MG/2 ML VIAL IM STA (17:06)
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
--- NOTE | 2019-06-11 18:34 | XR ---
EXAMINATION TYPE: XR lumbar spine 2 or 3V DATE OF EXAM: 06/11/2019 COMPARISON: NONE HISTORY: Back pain TECHNIQUE: 3 views FINDINGS: Lumbar vertebra have normal alignment. Posterior elements are intact. Sacroiliac joints vickie ear normal. There is no compression fracture. IMPRESSION: Negative lumbar spine exam. No fracture.
--- NOTE | 2019-06-11 18:36 | XR ---
EXAMINATION TYPE: XR ribs RT w pa chest xray DATE OF EXAM: 06/11/2019 COMPARISON: Chest x-ray 03/18/2018 HISTORY: Rib pain TECHNIQUE: 5 views FINDINGS: Heart and mediastinum are normal. Lungs are clear. Diaphragm is normal. Bony thorax is norm al. There is no pleural effusion or pneumothorax. The right ribs appear intact. There is widening of the left AC joint space consistent with previous surgery or old ligamentous tear unchanged. IMPRESSION: No cardiopulmonary disease. Normal right ribs. No change.
[2019-06-11 19:12] VITALS: BP 123/87; PULSE 72; RESP 18; TEMP 97.8
== END 2019-06-11 19:11 | disposition home or self-care (01) ==
LOC: EC 16:24
DX: M54.5 Low back pain (principal); M54.2 Cervicalgia; R51 Headache; I10 Essential (primary) hypertension; F17.200 Nicotine dependence, unspecified, uncomplicated; Z79.899 Other long term (current) drug therapy; Z88.2 Allergy status to sulfonamides; Z88.8 Allergy status to other drugs, medicaments and biological substances; Z91.010 Allergy to peanuts; Z91.018 Allergy to other foods; Z86.73 Personal history of transient ischemic attack (TIA), and cerebral infarction without residual deficits; V43.52XA Car driver injured in collision with other type car in traffic accident, initial encounter; Y92.410 Unspecified street and highway as the place of occurrence of the external cause
CPT/HCPCS: 71101; 72100; 72125; 70450; 99284; 96372; J1885

== ENCOUNTER 2019-07-17 19:49 | Emergency (ER) | payer MEDICARE, OTHER ==
[2019-07-17 19:54] VITALS: TEMP 98.3
[2019-07-17] MEDS ORDERED: SODIUM CHLORIDE 0.9% 500 ML 500 ML IV STA (20:38)
[2019-07-17] MEDS ORDERED: ONDANSETRON 4 MG/2 ML VIAL IVP STA (20:38)
[2019-07-17] MEDS ORDERED: MECLIZINE 12.5 MG TAB PO STA (20:38)
--- NOTE | 2019-07-17 20:40 | ED ---
General Adult HPI - General Chief complaint: Dizziness Stated complaint: Dizziness Time Seen by Provider: 07/17/19 20:32 Source: patient Mode of arrival: wheelchair Limitations: no limitations - History of Present Illness Initial comments: Dictation was produced using [employer] dictation software. please excuse any grammatical, word or spelling errors. Chief Complaint: 54-year-old female sent in from [employer] for lighthea dedness. History of Present Illness: 4-year-old female she was at our local urgent care when she was redirected to come to the emergency department. Patient has history of transient ischemic attack, atrial fibrillation. She presents today with dizziness. Patient states that she feels faint worse with various positions. She states she's been having some facial stuffiness in his congestion over the last couple days. She is concerned that she is having sinusitis. She denies any constitutional symptoms. Denies any exacerbating or mitigating symptoms. The ROS documented in this emergency department record has been reviewed and confirmed by me. Those systems with pertinent positive or negative responses have been documented in the HPI. All other systems are other negative and/or noncontributory. PHYSICAL EXAM: General Impression: Alert and oriented x3, not in acute distress HEENT: Normocephalic atraumatic, extra-ocular movements intact, pupils equal and reactive to light bilaterally, mucous membranes moist. Cardiovascular: Heart regular rate and rhythm, S1&S2 audible, no murmurs, rubs or gallops Chest: Lungs clear to auscultation bilaterally, no rhonchi, no wheeze, no rales Abdomen: Bowel sounds present, abdomen soft, non-tender, non-distended, no organomegaly Musculoskeletal: Pulses present and equal in all extremities, no peripheral edema Motor: no focal deficits noted Neurological: CN II-XII grossly intact, no focal motor or sensory deficits noted, no nystagmus Skin: Intact with no visualized rashes Psych: Normal affect and mood ED course: 54-year-old female presents with lightheadedness. Vital signs upon arrival are within acceptable limits. Vital signs upon arrival are within acceptable limits. Lavatory evaluation obtained. CBC and metabolic panel is unremarkable. Patient given intravenous fluids and antivertigo medication. She is reevaluated bedside with stable medical condition. She does report improvement of her symptoms. Patient given prescription for Augmentin for treating sinusitis and antinausea medications for symptom control. Patient told to follow-up with her primary care physician upon discharge. EKG interpretation: Ventricular rate 74, normal sinus rhythm, OH interval 150, QS 90, QTc 457. No OH prolongation, no QTC prolongation, no ST or T-wave changes noted. . Overall, this EKG is unremarkable - Related Data Home Medications Medication Instructions Recorded Confirmed Metoprolol Succinate (ER) [Toprol 50 mg PO QAM 11/06/17 12/10/18 Xl] Naproxen Sodium [Aleve] 440 mg PO BID PRN 03/31/18 12/10/18 Cholecalciferol [Vitamin D3] 5,000 unit PO DAILY 09/14/18 12/10/18 Cyanocobalamin (Vitamin B-12) 1,000 mcg PO DAILY 09/14/18 12/10/18 [Vitamin B-12] Lisinopril [Zestril] 20 mg PO DAILY 09/14/18 12/10/18 Multivit-Min/Iron/Folic/Lutein 1 each PO DAILY 09/14/18 12/10/18 [Centrum Silver Women Tablet] [place]-3 Fatty Acids/Fish Oil [Fish 1 each PO BID 10/19/18 12/10/18 Oil 1,000 mg Softgel] Ibuprofen 800 mg PO Q6HR PRN 11/06/18 12/10/18 Previous Rx's Medication Instructions Recorded Baclofen 5 mg PO BID 5 Days #15 tablet 06/11/19 Amoxic-Pot Clav 875-125Mg 1 tab PO BID 7 Days #14 tab 07/17/19 [Augmentin 875-125] Meclizine [Antivert] 25 mg PO TID PRN #15 tab 07/17/19 Ondansetron Odt [Zofran Odt] 4 mg PO Q8HR PRN #12 tab 07/17/19 Allergies Allergy/AdvReac Type Severity Reaction Status Date / Time peanut Allergy Anaphylaxis Verified 07/17/19 19:54 Sulfa (Sulfonamide Allergy Vomiting Verified 07/17/19 19:54 Antibiotics) sumatriptan [From Imitrex] Allergy Anaphylaxis Verified 07/17/19 19:54 sumatriptan succinate Allergy Anaphylaxis Verified 07/17/19 19:54 [From Imitrex] tree nut [Nut] Allergy Anaphylaxis- Verified 11/23/19 19:54 ALL NUTS Review of Systems ROS Statement: Those systems with pertinent positive or pertinent negative responses have been documented in the HPI. ROS Other: All systems not noted in ROS Statement are negative. Past Medical History Past Medical History: CVA/TIA, GERD/Reflux, Hyperlipidemia, Hypertension, Osteoarthritis (OA), Thyroid Disorder Additional Past Medical History / Comment(s): HX OF TIA'S, POSSIBLE SEIZURES- HX OF "SEVERE CONCUSSION"., VARICOSE VEINS, STATES ARRYTHMIA., DDD WITH RUPTURED DISCS WITH BACK & NECK PAIN., IBS, PRE-CANCEROUR CERVICAL CELLS.,hx ulcer, hiatal hernia, elevated triglycerides, throid nodules, History of Any Multi-Drug Resistant Organisms: None Reported Past Surgical History: Breast Surgery, Cholecystectomy, Orthopedic Surgery, Tubal Ligation, Uterine Ablation Additional Past Surgical History / Comment(s): surgery for twisted ureter, LEFT ELBOW surgery, LEFT CARPAL TUNNEL, LEFT ROTATOR CUFF X2, NOAM BREAST BX. , TORN LEFT knee MENISCUS, DEVITATED SEPTUM & SINUS SURGERY. Past Anesthesia/Blood Transfusion Reactions: Previous Problems w/ Anesthesia, Family History of Problems w/ Anesthesia, Motion Sickness Additional Past Anesthesia/Blood Transfusion Reaction / Comment(s): CLAUSTROPHOBIC, BROTHER=PONV, after last clinic procedure had episode after getting home "felt like I was really high, could not walk, had to hold on to zhou"- lasted for hours. Past Psychological History: Anxiety, Depression, Panic Disorder, PTSD Smoking Status: Current every day smoker Past Alcohol Use History: Occasional Past Drug Use History: None Reported - Past Family History Father Family Medical History: Cancer, Deep Vein Thrombosis (DVT) Additional Family Medical History / Comment(s): history of Alzheimer's disease, coronary artery disease status post post 4 vessel CABG, CVA, SKIN CA Mother History Unknown: Yes Additional Family Medical History / Comment(s): Mother is alive at age 83 with history of hypertension. Son(s) Additional Family Medical History / Comment(s): patient has 2 sons and one has Depression Daughter(s) Family Medical History: No Reported History Additional Family Medical History / Comment(s): Patient has one daughter with no major medical problems. Brother(s) Family Medical History: Cancer Additional Family Medical History / Comment(s): patient has 5 brothers. One at age 27 from suicide. One has coronary artery disease status post 2 vessel CABG. General Exam Limitations: no limitations Course Vital Signs 07/17/19 07/17/19 07/17/19 19:51 21:04 21:07 Temperature 98.3 F Pulse Rate 78 66 Pulse Rate [ 76 [employer] ] Respiratory 18 16 Rate Blood Pressure 129/88 142/83 O2 Sat by Pulse 99 98 Oximetry Medical Decision Making - Lab Data Result diagrams: 07/17/19 20:33 07/17/19 20:33 Lab Results 07/17/19 07/17/19 Range/Units 20:33 20:33 WBC 6.8 (3.8-10.6) k/uL RBC 3.92 (3.80-5.40) m/uL Hgb 12.2 (11.4-16.0) gm/dL Hct 36.3 (34.0-46.0) % MCV 92.6 (80.0-100.0) fL MCH 31.1 (25.0-35.0) pg MCHC 33.6 (31.0-37.0) g/dL RDW 12.1 (11.5-15.5) % Plt Count 372 (150-450) k/uL Neutrophils % 40 % Lymphocytes % 49 % Monocytes % 6 % Eosinophils % 3 % Basophils % 1 % Neutrophils # 2.7 (1.3-7.7) k/uL Lymphocytes # 3.3 (1.0-4.8) k/uL Monocytes # 0.4 (0-1.0) k/uL Eosinophils # 0.2 (0-0.7) k/uL Basophils # 0.1 (0-0.2) k/uL Sodium 140 (137-145) mmol/L Potassium 3.8 (3.5-5.1) mmol/L Chloride 108 H (98-107) mmol/L Carbon Dioxide 26 (22-30) mmol/L Anion Gap 6 mmol/L BUN 17 (7-17) mg/dL Creatinine 0.71 (0.52-1.04) mg/dL Est GFR (CKD-EPI)AfAm >90 (>60 ml/min/1.73 sqM) Est GFR (CKD-EPI)NonAf >90 (>60 ml/min/1.73 sqM) Glucose 98 (74-99) mg/dL Calcium 10.1 (8.4-10.2) mg/dL Magnesium 1.9 (1.6-2.3) mg/dL Disposition Clinical Impression: Nausea Disposition: HOME SELF-CARE Condition: Good Instructions (If sedation given, give patient instructions): Dizziness (ED) Prescriptions: Meclizine [Antivert] 25 mg PO TID PRN #15 tab PRN Reason: dizziness Amoxic-Pot Clav 875-125Mg [Augmentin 875-125] 1 tab PO BID 7 Days #14 tab Ondansetron Odt [Zofran Odt] 4 mg PO Q8HR PRN #12 tab PRN Reason: Nausea Is patient prescribed a controlled substance at d/c from ED?: No Referrals: [facility] [Primary Care Provider] - 1-2 days Time of Disposition: 21:11
[2019-07-17 20:51] LABS: Basophils # (A) 0.1 k/uL (0-0.2); Basophils % (A) 1 %; Eosinophils # (A) 0.2 k/uL (0-0.7); Eosinophils % (A) 3 %; HCT 36.3 % (34.0-46.0); HGB 12.2 gm/dL (11.4-16.0); Lymphocytes # (A) 3.3 k/uL (1.0-4.8); Lymphocytes % (A) 49 %; MCH 31.1 pg (25.0-35.0); MCHC 33.6 g/dL (31.0-37.0); MCV 92.6 fL (80.0-100.0); Mean Platelet Volume 6.7; Monocytes # (A) 0.4 k/uL (0-1.0); Monocytes % (A) 6 %; Neutrophils # (A) 2.7 k/uL (1.3-7.7); Neutrophils % (A) 40 %; Platelet Count 372 k/uL (150-450); RBC 3.92 m/uL (3.80-5.40); RDW 12.1 % (11.5-15.5); WBC 6.8 k/uL (3.8-10.6)
[2019-07-17 21:01] LABS: African American GFR (CKD) >90 (>60 ml/min/1.73 sqM); Anion Gap 6 mmol/L; Blood Urea Nitrogen 17 mg/dL (7-17); Calcium 10.1 mg/dL (8.4-10.2); Carbon Dioxide 26 mmol/L (22-30); Chloride 108 mmol/L (98-107); Glucose 98 mg/dL (74-99); Magnesium 1.9 mg/dL (1.6-2.3); Non-African American GFR(CKD) >90 (>60 ml/min/1.73 sqM); Potassium 3.8 mmol/L (3.5-5.1); Sodium 140 mmol/L (137-145)
[2019-07-17 21:08] VITALS: BP 142/83; PULSE 66; RESP 16
== END 2019-07-17 21:27 | disposition home or self-care (01) ==
LOC: EC 19:49
DX: R11.0 Nausea (principal); R42 Dizziness and giddiness; I48.91 Unspecified atrial fibrillation; R55 Syncope and collapse; I10 Essential (primary) hypertension; M19.90 Unspecified osteoarthritis, unspecified site; F17.200 Nicotine dependence, unspecified, uncomplicated; Z79.899 Other long term (current) drug therapy; Z88.2 Allergy status to sulfonamides; Z91.010 Allergy to peanuts; Z88.8 Allergy status to other drugs, medicaments and biological substances; Z86.73 Personal history of transient ischemic attack (TIA), and cerebral infarction without residual deficits; Z82.49 Family history of ischemic heart disease and other diseases of the circulatory system
CPT/HCPCS: 36415; 93005; 80048; 83735; 85025; 96374; 99284; J2405

== ENCOUNTER → 2019-08-04 | Outpatient (CLI) | payer OTHER ==
--- NOTE | 2019-08-04 23:53 | MR ---
EXAMINATION TYPE: MR brain wo con DATE OF EXAM: 08/04/2019 COMPARISON: 06/16/2017 HISTORY: Head injury Multiplanar multiecho imaging of the brain was performed without contrast. Ventricles have normal size. There is no mass effect nor midline shift. There is no sign of intracran ial hemorrhage. Corpus callosum is intact. Brainstem is intact. There is no evidence of cortical infa rct. Brainstem has normal signal pattern. There is no evidence of cerebral edema. There is no evidenc e of cortical infarct. There is no pathologic fluid collection. Sella turcica appears normal. IMPRESSION: Negative MR scan of the brain. No adverse change compared to old exam. No evidence of traumatic injur y.
== END | disposition home or self-care (01) ==
LOC: RADMRIMAIN 08:55
PROVIDERS: ATTEND Anesthesiology
DX: S06.0X0A Concussion without loss of consciousness, initial encounter (principal)
CPT/HCPCS: 70551

== ENCOUNTER → 2020-09-12 | Outpatient (CLI) | payer MEDICARE, OTHER ==
--- NOTE | 2020-09-12 16:12 | BD ---
EXAMINATION TYPE: Axial Bone Density DATE OF EXAM: 09/12/2020 COMPARISON: NONE CLINICAL HISTORY: N 95.1 Height: 62 IN Weight: 169 LBS FRAX RISK QUESTIONS: Current Tobacco Use: YES RISK FACTORS HISTORY OF: Family History of Osteoporosis: MOTHER Active: MODERATE Diet low in dairy products/other sources of calcium: YES Postmenopausal woman: ARIELA AGE 45 MEDICATIONS: Additional Medications: VIT D, TOPROL, LISINOPRIL, FISH OIL, B12, ALEVE EXAM MEASUREMENTS: Bone mineral densitometry was performed using the [employer] System. Bone mineral density as measured about the Lumbar spine is: ----- L1-L4(G/cm2): 0.984 T Score Values are as follows: ----- L2: -1.5 ----- L3: -1.3 ----- L4: -1.8 ----- L1-L4: -1.6 Bone mineral density BASELINE Bone mineral density about the R hip (g/cm2): 0.811 Bone mineral density about the L hip (g/cm2): 0.766 T Score values are as follows: -----R Neck: -1.6 -----L Neck: -2.0 -----R Total: -1.3 -----L Total: -1.1 Bone mineral density BASELINE IMPRESSION: Osteopenia (T Score between -2.5 and -1). There is slightly increased risk of fracture and the patient may be considered for treatment. Re-Screen 2-5 years. NOTE: T-SCORE=SD OF THE YOUNG ADULT MEAN.
--- NOTE | 2020-09-13 11:24 | MM ---
Reason for exam: screening (asymptomatic). Last mammogram was performed 3 years and 5 months ago. History: Patient is postmenopausal and has history of other cancer at age 25. Family history of breast cancer in paternal grandmother. Benign US breast aspiration ea add RT of the right breast, November 01, 2016. Benign US biopsy breast VAD LT of the left breast, November 01, 2016. Benign US biopsy breast VAD RT of the right breast, November 01, 2016. Benign US right guided VAD of the right breast, April 19, 2011. Benign cyst aspiration of the left breast, December 07, 2004. Benign cyst aspiration of the right breast, December 07, 2004. Benign ultrasound-guided cyst aspiration of the left breast, December 07, 2004. Benign ultrasound-guided cyst aspiration of the right breast, December 07, 2004. Benign ultrasound-guided cyst aspiration of the right breast, December 07, 2004. Benign ultrasound-guided cyst aspiration of the right breast, May 17, 2004. Benign ultrasound-guided cyst aspiration of the right breast, May 17, 2004. Benign excisional biopsy of the left breast, October 22, 2001. 5 cyst aspirations of the left breast. Excisional biopsy of the left breast. Physical Findings: A clinical breast exam by your physician is recommended on an annual basis and results should be correlated with mammographic findings. MG 3D Screening Mammo W/Cad Bilateral CC and MLO view(s) were taken. Prior study comparison: April 03, 2017, bilateral MG 3d diag mammo w/cad NOAM. November 01, 2016, bilateral MG diagnostic johnny BI wo CAD. The breast tissue is heterogeneously dense. This may lower the sensitivity of mammography. There are benign appearing vascular calcifications bilaterally. Previous mammotome biopsy in the right breast x 3 and in the left breast at clip. There is no discrete abnormality. ASSESSMENT: Benign, BI-RAD 2 RECOMMENDATION: Routine screening mammogram of both breasts in 1 year.
== END | disposition home or self-care (01) ==
LOC: RADMAMWWP 08:20
PROVIDERS: ATTEND Obstetrics & Gynecology
DX: Z12.31 Encounter for screening mammogram for malignant neoplasm of breast (principal); M85.80 Other specified disorders of bone density and structure, unspecified site
CPT/HCPCS: 77063; 77067; 77080

== ENCOUNTER → 2021-01-15 | Outpatient (CLI) | payer MEDICARE, OTHER ==
[2021-01-15 14:14] VITALS: BP 125/87; PULSE 110; RESP 16; TEMP 98.3
--- NOTE | 2021-01-15 14:28 | P.PN ---
Subjective Progress Note Date: 01/15/21 This is a 55-year-old lady with history of chronic lower back pain for which she was having intervention pain procedures in our clinic about 2 years ago however she is here today for a recent neck pain with radiation to both arms down to the hands with numbness and tingling in both hands her hands. She denies any bowel or bladder dysfunction at this point. She had seen Dr. Chua who referred her to our clinic for interventional pain procedures on the cervical spine. She was told that she is a surgical candidate because of the changes that was found on the MRI of the cervical spine and her clinical symptoms. Her cervical spine MRI which was done in September 2020 showed severe neural foraminal stenosis bilaterally at the C5 6 and C6 7 levels with impingement of the bilateral C7 and C6 nerve roots . Patient denies new-onset weakness, bowel/bladder incontinence, or any other signs or symptoms of cauda equina syndrome. There are no signs of acute intoxication, and no indications of medication diversion or overuse. In addition to above, 13-point review of systems is also negative for chest pain, shortness of breath, changes in vision, changes in hearing, new onset weakness, abdominal pain, diarrhea, extreme fatigue, malaise, fever, skin changes, homicidal or suicidal ideation, or bowel or bladder incontinence. Vital Signs: Reviewed in EMR Gen: AAOx3, NAD HEENT: PERRLA,hearing grossly normal Pulm: resp unlabored Neck: supple, trachea midline Neuro exam of the upper extremities: Normal muscle strength bilaterally however I could not elicit any reflexes in the upper extremities. Straight leg raising test: Jude's test: Range of motion of the lumbar spine: Facet loading test: Tenderness in the paravertebral musculature: Positive tenderness in the cervical paravertebral musculature bilaterally Normal range of motion of the cervical spine however with pain with extreme range of motion. Neuro: CN II-XII grossly intact, Imaging: Reviewed in EMR/chart Assessment: Cervical radiculopathy due to neural foraminal stenosis Cervical disc desiccation Plan: 1. Explanation: Opioid and psychological risk scores were reviewed. Diagnoses, prognoses, and multiple treatment options including but not limited to physical therapy, interventional therapies, adjuvant medical therapies, narcotic medication therapies, and surgery were discussed with the patient and all questions were answered to the patient's satisfaction. 2. Opioid agreement: Signed with the patient and the patient is warned not to use opioids while driving or before driving and not to combine opioids with benzodiazepines or alcohol. 3. Counseling: The patient was counseled extensively on SMOKING CESSATION, BODY MASS INDEX, EXERCISE. Specifically, the patient was instructed regarding the importance of smoking cessation, obesity, and exercise in the context of both chronic pain and overall health. 4. Procedures: Scheduled for cervical epidural steroid injection at the C7-T1 level. The procedure was explained to the patient and her questions were answered. The patient stopped using Aleve and she is using Tylenol for now I also asked her to stop taking fish oil for 3 days before the procedure. 5. Consultations: None 6. Investigations: None 7. Medications: None 8. Disposition: May need to repeat the procedure one more time in 2-3 weeks after the first one and the patient will be seen in the clinic afterwards for follow-up 9. Maps were reviewed and were appropriate. Objective - Vital Signs Vital signs: Vital Signs Temp 98.3 F 01/15/21 14:12 Pulse 110 H 01/15/21 14:12 Resp 16 01/15/21 14:12 BP 125/87 01/15/21 14:12 Pulse Ox 97 01/15/21 14:12
== END | disposition home or self-care (01) ==
LOC: PNWHC3 14:01
PROVIDERS: ATTEND Anesthesiology
DX: M48.02 Spinal stenosis, cervical region (principal); M54.12 Radiculopathy, cervical region; Z87.39 Personal history of other diseases of the musculoskeletal system and connective tissue
CPT/HCPCS: 99211

== ENCOUNTER 2021-02-01 15:53 | Emergency (ER) | payer MEDICARE, OTHER ==
[2021-02-01 15:58] VITALS: BP 142/79; PULSE 100; RESP 18; TEMP 97.7
[2021-02-01] MEDS ORDERED: SODIUM CHLORIDE 0.9% 1,000 ML IV STA (16:14)
--- NOTE | 2021-02-01 16:17 | ED ---
Abdominal Pain HPI - General Chief Complaint: Abdominal Pain Stated Complaint: Abd pain, possible hernia Time Seen by Provider: 02/01/21 16:03 Source: patient Mode of arrival: ambulatory Limitations: no limitations - History of Present Illness Initial Comments: 55-year-old female presents to emergency department with a chief complaint of possible hernia. States she underwent a cholecystectomy several years ago and since then she has been a transient occasional protrusion in her abdomen near one of the lips Excites. Patient reports yesterday she was bending over to pick something off the floor and noted the protrusion came out and she was able to reduce it herself. States it also occurred today and she was subsequently able to reduce it, however now she feels some pain and tightness in the area. Denies any nausea vomiting diarrhea or constipation. Denies any chest pain or shortness of breath. Denies hematuria, hematochezia or melena - Related Data Home Medications Medication Instructions Recorded Confirmed Metoprolol Succinate (ER) [Toprol 50 mg PO QAM 11/06/17 01/11/21 Xl] Cholecalciferol [Vitamin D3] 5,000 unit PO DAILY 09/14/18 01/11/21 Cyanocobalamin (Vitamin B-12) 1,000 mcg PO DAILY 09/14/18 01/11/21 [Vitamin B-12] lisinopriL [Zestril] 20 mg PO DAILY 09/14/18 01/11/21 [place]-3 Fatty Acids/Fish Oil [Fish 1 each PO BID 10/19/18 01/11/21 Oil 1,000 mg Softgel] Acetaminophen [Tylenol Arthritis] 650 mg PO Q6H PRN 01/11/21 01/11/21 Calcium Carbonate/Vitamin D3 2 each PO DAILY 01/11/21 01/11/21 [Calcium 500 mg Chewable Tablet] Carboxymethylcellulos/Glycerin 1 drop BOTH EYES DIRECTED PRN 01/11/21 01/11/21 [Refresh Relieva 0.5-0.9% Drop] Mv-Mn/Folic/Lutein/Herbal 293 1 each PO DAILY 01/11/21 01/11/21 [Alive Women's 50 Plus Vitamins] Omeprazole [PriLOSEC] 20 mg PO AC-BRKFST 01/11/21 01/11/21 Potassium Gluconate 99 mg PO DAILY 01/11/21 01/11/21 busPIRone HCL 5 mg PO HS 01/11/21 01/11/21 cycloSPORINE [Restasis] 1 applicator BOTH EYES BID 01/11/21 01/11/21 Previous Rx's Medication Instructions Recorded Baclofen 5 mg PO BID 5 Days #15 tablet 06/11/19 Allergies Allergy/AdvReac Type Severity Reaction Status Date / Time peanut Allergy Anaphylaxis Verified 02/01/21 15:58 Sulfa (Sulfonamide Allergy Vomiting Verified 02/01/21 15:58 Antibiotics) sumatriptan [From Imitrex] Allergy Anaphylaxis Verified 02/01/21 15:58 sumatriptan succinate Allergy Anaphylaxis Verified 02/01/21 15:58 [From Imitrex] tree nut [Nut] Allergy Anaphylaxis- Verified 02/01/21 15:58 ALL NUTS Review of Systems ROS Statement: Those systems with pertinent positive or pertinent negative responses have been documented in the HPI. ROS Other: All systems not noted in ROS Statement are negative. Past Medical History Past Medical History: CVA/TIA, GERD/Reflux, Hyperlipidemia, Hypertension, Osteoarthritis (OA), Thyroid Disorder Additional Past Medical History / Comment(s): HX OF TIA'S, POSSIBLE SEIZURES- HX OF "SEVERE CONCUSSION"., VARICOSE VEINS, STATES ARRYTHMIA., DDD WITH RUPTURED DISCS WITH BACK & NECK PAIN., IBS, PRE-CANCEROUR CERVICAL CELLS.,hx ulcer, hiatal hernia, elevated triglycerides, throid nodules, History of Any Multi-Drug Resistant Organisms: None Reported Past Surgical History: Breast Surgery, Cholecystectomy, Orthopedic Surgery, Tubal Ligation, Uterine Ablation Additional Past Surgical History / Comment(s): surgery for twisted ureter, LEFT ELBOW surgery, LEFT CARPAL TUNNEL, LEFT ROTATOR CUFF X2, NOAM BREAST BX. , TORN LEFT knee MENISCUS, DEVITATED SEPTUM & SINUS SURGERY. Past Anesthesia/Blood Transfusion Reactions: Previous Problems w/ Anesthesia, Family History of Problems w/ Anesthesia, Motion Sickness Additional Past Anesthesia/Blood Transfusion Reaction / Comment(s): CL AUSTROPHOBIC, BROTHER=PONV, after last clinic procedure had episode after getting home "felt like I was really high, could not walk, had to hold on to zhou"- lasted for hours. Past Psychological History: Anxiety, Depression, Panic Disorder, PTSD Smoking Status: Current every day smoker Past Alcohol Use History: Occasional Past Drug Use History: None Reported - Past Family History Father Family Medical History: Cancer, Deep Vein Thrombosis (DVT) Additional Family Medical History / Comment(s): history of Alzheimer's disease, coronary artery disease status post post 4 vessel CABG, CVA, SKIN CA Mother History Unknown: Yes Additional Family Medical History / Comment(s): Mother is alive at age 83 with history of hypertension. Son(s) Additional Family Medical History / Comment(s): patient has 2 sons and one has Depression Daughter(s) Family Medical History: No Reported History Additional Family Medical History / Comment(s): Patient has one daughter with no major medical problems. Brother(s) Family Medical History: Cancer Additional Family Medical History / Comment(s): patient has 5 brothers. One at age 27 from suicide. One has coronary artery disease status post 2 vessel CABG. General Exam Limitations: no limitations General appearance: alert, in no apparent distress Head exam: Present: atraumatic, normocephalic, normal inspection Eye exam: Present: normal appearance, PERRL, EOMI Pupils: Present: normal accommodation ENT exam: Present: normal exam, normal oropharynx, mucous membranes moist Neck exam: Present: normal inspection, full ROM. Absent: tenderness Respiratory exam: Present: normal lung sounds bilaterally. Absent: respiratory distress Cardiovascular Exam: Present: regular rate, normal rhythm, normal heart sounds. Absent: systolic murmur GI/Abdominal exam: Present: soft, tenderness (Mild tenderness in the right upper quadrant and periumbilical region. No obvious protrusion noted at this time.). Absent: distended, guarding, rebound, rigid Extremities exam: Present: normal inspection, full ROM, normal capillary refill. Absent: tenderness Back exam: Present: normal inspection, full ROM. Absent: tenderness, CVA tenderness (R), CVA tenderness (L) Neurological exam: Present: alert, oriented X3 Psychiatric exam: Present: normal affect, normal mood Skin exam: Present: warm, dry, intact, normal color Course Vital Signs 02/01/21 15:55 Temperature 97.7 F Pulse Rate 100 Respiratory 18 Rate Blood Pressure 142/79 O2 Sat by Pulse 99 Oximetry Medical Decision Making - Medical Decision Making 55-year-old female presented emergency department with a chief complaint a possible hernia. On physical examination, no signs of a ventral hernia with minimal tenderness in the epigastric and periumbilical region. Laboratory work reveals mild transaminitis and elevation of lipase but no diagnostic criteria for pancreatitis. CT of abdomen and pelvis with contrast reveals no acute findings. I gave her contact information for general surgeon. Return parameters were thoroughly discussed patient is an attending agreeable. Case discussed with Dr. Neville - Lab Data Result diagrams: 02/01/21 16:34 02/01/21 16:34 Lab Results 02/01/21 02/01/21 02/01/21 Range/Units 16:34 16:34 16:34 WBC 9.4 (3.8-10.6) k/uL RBC 4.22 (3.80-5.40) m/uL Hgb 13.2 (11.4-16.0) gm/dL Hct 38.4 (34.0-46.0) % MCV 91.1 (80.0-100.0) fL MCH 31.3 (25.0-35.0) pg MCHC 34.4 (31.0-37.0) g/dL RDW 12.3 (11.5-15.5) % Plt Count 386 (150-450) k/uL MPV 7.1 Neutrophils % 53 % Lymphocytes % 38 % Monocytes % 4 % Eosinophils % 3 % Basophils % 1 % Neutrophils # 5.0 (1.3-7.7) k/uL Lymphocytes # 3.6 (1.0-4.8) k/uL Monocytes # 0.4 (0-1.0) k/uL Eosinophils # 0.3 (0-0.7) k/uL Basophils # 0.0 (0-0.2) k/uL Sodium 140 (137-145) mmol/L Potassium 3.8 (3.5-5.1) mmol/L Chloride 106 (98-107) mmol/L Carbon Dioxide 25 (22-30) mmol/L Anion Gap 9 mmol/L BUN 12 (7-17) mg/dL Creatinine 0.67 (0.52-1.04) mg/dL Est GFR (CKD-EPI)AfAm >90 (>60 ml/min/1.73 sqM) Est GFR (CKD-EPI)NonAf >90 (>60 ml/min/1.73 sqM) Glucose 94 (74-99) mg/dL Calcium 9.9 (8.4-10.2) mg/dL Total Bilirubin 0.3 (0.2-1.3) mg/dL AST 60 H (14-36) U/L ALT 37 H (4-34) U/L Alkaline Phosphatase 96 (38-126) U/L Total Protein 7.6 (6.3-8.2) g/dL Albumin 4.8 (3.5-5.0) g/dL Lipase 452 H (23-300) U/L Urine Color Yellow Urine Appearance Clear (Clear) Urine pH 5.5 (5.0-8.0) Ur Specific [place] 1.021 (1.001-1.035) Urine Protein Negative (Negative) Urine Glucose (UA) Negative (Negative) Urine Ketones Negative (Negative) Urine Blood Small H (Negative) Urine Nitrite Negative (Negative) Urine Bilirubin Negative (Negative) Urine Urobilinogen <2.0 (<2.0) mg/dL Ur Leukocyte Esterase Trace H (Negative) Urine RBC 9 H (0-5) /hpf Urine WBC 2 (0-5) /hpf Ur Squamous Epith Cells 1 (0-4) /hpf Urine Mucus Rare H (None) /hpf Disposition Clinical Impression: Abdominal pain Disposition: HOME SELF-CARE Condition: Stable Instructions (If sedation given, give patient instructions): Ventral Hernia (ED) Additional Instructions: Please return to the Emergency Department if symptoms worsen or any other concerns. Follow up with a general surgeon. Is patient prescribed a controlled substance at d/c from ED?: No Referrals: Stephanie Pickett MD [Primary Care Provider] - 1-2 days Russell Jacob MD [Medical Doctor] - 1-2 days Time of Disposition: 17:15
[2021-02-01 16:43] LABS: Basophils % (A) 1 %; Eosinophils # (A) 0.3 k/uL (0-0.7); Eosinophils % (A) 3 %; HCT 38.4 % (34.0-46.0); HGB 13.2 gm/dL (11.4-16.0); Lymphocytes # (A) 3.6 k/uL (1.0-4.8); Lymphocytes % (A) 38 %; MCH 31.3 pg (25.0-35.0); MCHC 34.4 g/dL (31.0-37.0); MCV 91.1 fL (80.0-100.0); Mean Platelet Volume 7.1; Monocytes # (A) 0.4 k/uL (0-1.0); Monocytes % (A) 4 %; Neutrophils % (A) 53 %; Platelet Count 386 k/uL (150-450); RBC 4.22 m/uL (3.80-5.40); RDW 12.3 % (11.5-15.5); WBC 9.4 k/uL (3.8-10.6)
[2021-02-01 16:49] LABS: Appearance,Urine Clear (Clear); Bilirubin,Urine Negative (Negative); Blood,Urine Small (Negative); Color,Urine Yellow; Glucose,Urine (UA) Negative (Negative); Ketones,Urine Negative (Negative); Leukocyte Esterase,Urine Trace (Negative); Mucus,Urine Rare /hpf; Nitrite,Urine Negative (Negative); PH, Urine 5.5 (5.0-8.0); Protein,Urine Negative (Negative); RBC,Urine 9 /hpf (0-5); Specific Gravity,Urine 1.021 (1.001-1.035); Squamous Epithelial Cell,Urine 1 /hpf (0-4); Urobilinogen,Urine <2.0 mg/dL (<2.0); WBC,Urine 2 /hpf (0-5)
[2021-02-01 17:00] LABS: ALT 37 U/L (4-34); AST 60 U/L (14-36); African American GFR (CKD) >90 (>60 ml/min/1.73 sqM); Albumin 4.8 g/dL (3.5-5.0); Alkaline Phosphatase 96 U/L (38-126); Anion Gap 9 mmol/L; Blood Urea Nitrogen 12 mg/dL (7-17); Calcium 9.9 mg/dL (8.4-10.2); Carbon Dioxide 25 mmol/L (22-30); Chloride 106 mmol/L (98-107); Glucose 94 mg/dL (74-99); Lipase 452 U/L (23-300); Non-African American GFR(CKD) >90 (>60 ml/min/1.73 sqM); Sodium 140 mmol/L (137-145); Total Bilirubin 0.3 mg/dL (0.2-1.3); Total Protein 7.6 g/dL (6.3-8.2)
[2021-02-01 17:02] LABS: Potassium 3.8 mmol/L (3.5-5.1)
--- NOTE | 2021-02-01 17:14 | CT ---
EXAMINATION TYPE: CT abdomen pelvis w con DATE OF EXAM: 02/01/2021 COMPARISON: 09/16/2017 HISTORY: Upper abdominal pain CT DLP: 1104 mGycm Automated exposure control for dose reduction was used. TECHNIQUE: Helical acquisition of images was performed from the lung bases through the pelvis. CONTRAST: Performed without Oral Contrast and with IV Contrast, patient injected with 100 mL of Isovu e 300. FINDINGS: LUNG BASES: No definite acute process, though subtle bibasilar posterior subcutaneous pleural groundg lass opacity is noted, greater on the right. LIVER/GB: No significant abnormality is appreciated. PANCREAS: No significant abnormality is seen. SPLEEN: No significant abnormality is seen. ADRENALS: No significant abnormality is seen. KIDNEYS: No significant abnormality is seen. FREE AIR: No free air is visualized. RETROPERITONEAL ADENOPATHY: None visualized REPRODUCTIVE ORGANS: No significant abnormality is seen URINARY BLADDER: No significant abnormality is seen. PELVIC ADENOPATHY: None visualized. OSSEOUS STRUCTURES: No significant abnormality is seen. BOWEL: No significant abnormality is seen. OTHER: No acute vascular findings. The anterior abdominal wall musculature is intact. IMPRESSION: NO ACUTE PROCESS.
== END 2021-02-01 17:40 | disposition home or self-care (01) ==
LOC: EC 15:53
DX: R10.11 Right upper quadrant pain (principal); E78.5 Hyperlipidemia, unspecified; I10 Essential (primary) hypertension; M19.90 Unspecified osteoarthritis, unspecified site; E07.9 Disorder of thyroid, unspecified; F32.9 Major depressive disorder, single episode, unspecified; F17.200 Nicotine dependence, unspecified, uncomplicated; Z86.73 Personal history of transient ischemic attack (TIA), and cerebral infarction without residual deficits; Z90.49 Acquired absence of other specified parts of digestive tract; Z98.51 Tubal ligation status
CPT/HCPCS: 36415; 80053; 83690; 85025; 81001; 74177; 99284; 96360; Q9967

== ENCOUNTER 2021-02-06 11:17 | Day surgery (SDC) | payer MEDICARE, OTHER ==
[2021-02-02 16:07] VITALS: BMI 30.9
[~2021-02-06 11:17] MED LIST changes: +LACTATED RINGERS 1,000 ML IV SCH; -SODIUM CHLORIDE 0.9% 500 ML 500 ML IV SCH
[2021-02-06 11:55] VITALS: RESP 16; TEMP 98.8
[2021-02-06] MEDS ORDERED: LIDOCAINE 1% (10MG/ML) FOR IV START INTRADERMA ONE (11:58)
[2021-02-06] MEDS ORDERED: fentaNYL (PF) 50 MCG/ML 2 ML AMP ONE (12:36)
[2021-02-06] MEDS ORDERED: IOPAMIDOL M200 10 ML VIAL ONE (12:36)
[2021-02-06] MEDS ORDERED: DEXAMETHASONE SOD PHOSPHATE 10 MG/ML 1 ML VIAL ONE (12:36)
[2021-02-06] MEDS ORDERED: MIDAZOLAM 2 MG/2 ML VIAL ONE (12:36)
--- NOTE | 2021-02-06 12:48 | P.PCN ---
Date of Procedure: 02/06/21 Procedure(s) Performed: . PROCEDURE 1. Cervical epidural steroid injection under fluoroscopic guidance, C7-T1 (fluoroscopy images available in the radiology department ) 2. Cervical epidurogram. PREOPERATIVE DIAGNOSIS: 1- Cervical Degenerative Disc Diseases 2- Cervical radiculopathy. POSTOPERATIVE DIAGNOSIS: : 1- Cervical Degenerative Disc Diseases , 2- Cervical radiculopathy. ANESTHESIA: Local anesthesia with lidocaine 1 % , and moderate sedation, with Versed 2 mg and Fentanyl 100 mcg. EBL 0 PROCEDURE INDICATION: The patient with neck pain and radiculitis unresponsive to conservative treatment consents for procedure. PROCEDURE DESCRIPTION / TECHNIQUE: The patient was seen and identified in the preoperative area. Risks, benefits, complications, including but not limited to infections ,bleeding , allergic reactions to the medications ,and not complete pain releife, and alternatives were discussed with the patient, the patient agreed to proceed with the procedure and signed the consent. Patient was taken to the OR and time out was completed. The patient was placed in the prone position on the procedure table. A pillow was placed under the patients chest to increase the cervical interlaminar space. The cervical area was prepped and draped in the usual sterile fashion. Vital signs were closely monitored during the procedure. Conscious sedation was used during the procedure to decrease patients anxiety. Using anterior-posterior fluoroscopy, the C7-T1 interlaminar space was identified and the skin over this site was marked and then infiltrated with 1% lidocaine subcutaneously. Subsequently, a 20-gauge 3-1/2-inch Tuohy epidural needle was inserted and advanced toward the epidural space by means of the ``hanging-drop technique and guided by AP and lateral fluoroscopy. The correct needle position in the epidural space was verified with the injection of 2 mL of the water soluble contrast dye Isovue-200 and observing an excellent epidurogram with the epidural spread of the dye, after negative aspiration for blood and CSF and in the absence of paresthesias. then, mixture containing 20 mg Dexamethasone and 2 ml of preservative-free normal saline injected and a washout of epidurogram was seen. Needle was withdrawn intact, skin was cleansed, and bandages were applied. Complications= none. Disposition= patient was placed in supine position and transferred to the recovery room area in stable condition and there was no evidence of upper or lower extremity motor or sensory deficit after the procedure patient was discharged from recovery room after discharge criteria met and home discharge instructions was given by the staff and patient will follow with the pain clinic in 2-4 weeks
[2021-02-06] MEDS ORDERED: IV FLUID CONTINUATION 1,000 ML IV ONE (12:52)
[2021-02-06 13:26] VITALS: BP 113/73; PULSE 77
--- NOTE | 2021-02-06 13:32 | FL ---
Fluoroscopy HISTORY: Pain 2 seconds fluoroscopy time supplied to the referring clinician. 1 intraoperative C-arm images docume nt the procedure. See dictated report from anesthesia.
== END 2021-02-06 13:42 | disposition home or self-care (01) ==
LOC: ORPAIN 11:17
PROVIDERS: ATTEND Specialist
DX: M50.10 Cervical disc disorder with radiculopathy, unspecified cervical region (principal); Z88.2 Allergy status to sulfonamides; Z88.8 Allergy status to other drugs, medicaments and biological substances; N95.9 Unspecified menopausal and perimenopausal disorder
CPT/HCPCS: 62321; J2250; J1100; J3010; Q9966

== ENCOUNTER 2021-02-22 08:51 | Day surgery (SDC) | payer MEDICARE, OTHER ==
[2021-02-20 15:30] VITALS: BMI 30.8
[2021-02-22 09:21] VITALS: RESP 16; TEMP 97.9
[2021-02-22] MEDS ORDERED: MIDAZOLAM 2 MG/2 ML VIAL ONE (09:23)
[2021-02-22] MEDS ORDERED: DEXAMETHASONE SOD PHOSPHATE 10 MG/ML 1 ML VIAL ONE (09:23)
[2021-02-22] MEDS ORDERED: fentaNYL (PF) 50 MCG/ML 2 ML AMP ONE (09:23)
[2021-02-22] MEDS ORDERED: IOPAMIDOL M200 10 ML VIAL ONE (09:23)
--- NOTE | 2021-02-22 09:33 | P.PCN ---
Date of Procedure: 02/22/21 Procedure(s) Performed: . PROCEDURE 1. Cervical epidural steroid injection under fluoroscopic guidance, C7-T1 (fluoroscopy images available in the radiology department ) #2nd 2. Cervical epidurogram. PREOPERATIVE DIAGNOSIS: 1- Cervical Degenerative Disc Diseases 2- Cervical radiculopathy. POSTOPERATIVE DIAGNOSIS: : 1- Cervical Degenerative Disc Diseases , 2- Cervical radiculopathy. ANESTHESIA: Local anesthesia with lidocaine 1 % , and moderate sedation, with Versed 2 mg and Fentanyl 50 mcg. EBL 0 PROCEDURE INDICATION: The patient with neck pain and radiculitis unresponsive to conservative treatment consents for procedure. PROCEDURE DESCRIPTION / TECHNIQUE: The patient was seen and identified in the preoperative area. Risks, benefits, complications, including but not limited to infections ,bleeding , allergic reactions to the medications ,and not complete pain releife, and alternatives were discussed with the patient, the patient agreed to proceed with the procedure and signed the consent. Patient was taken to the OR and time out was completed. The patient was placed in the prone position on the procedure table. A pillow was placed under the patients chest to increase the cervical interlaminar space. The cervical area was prepped and draped in the usual sterile fashion. Vital signs were closely monitored during the procedure. Conscious sedation was used during the procedure to decrease patients anxiety. Using anterior-posterior fluoroscopy, the C7-T1 interlaminar space was identified and the skin over this site was marked and then infiltrated with 1% lidocaine subcutaneously. Subsequently, a 20-gauge 3-1/2-inch Tuohy epidural needle was inserted and advanced toward the epidural space by means of the ``hanging-drop technique and guided by AP and lateral fluoroscopy. The correct needle position in the epidural space was verified with the injection of 2 mL of the water soluble contrast dye Isovue-200 and observing an excellent epidurogram with the epidural spread of the dye, after negative aspiration for blood and CSF and in the absence of paresthesias. then, mixture containing 20 mg Dexamethasone and 2 ml of preservative-free normal saline injected and a washout of epidurogram was seen. Needle was withdrawn intact, skin was cleansed, and bandages were applied. Complications= none. Disposition= patient was placed in supine position and transferred to the recovery room area in stable condition and there was no evidence of upper or lower extremity motor or sensory deficit after the procedure patient was discharged from recovery room after discharge criteria met and home discharge instructions was given by the staff and patient will follow with the pain clinic in 2-4 weeks
[2021-02-22] MEDS ORDERED: IV FLUID CONTINUATION 900 ML IV ONE (09:39)
[2021-02-22 09:43] VITALS: PULSE 76
[2021-02-22 10:00] VITALS: BP 130/70
--- NOTE | 2021-02-22 12:32 | FL ---
EXAMINATION TYPE: FL guided pain mgmt statistic DATE OF EXAM: 02/22/2021 FLUOROSCOPY Fluoroscopy time of 2 seconds was used during cervical epidural injection. 1 image/s document/s the procedure.
== END 2021-02-22 10:18 | disposition home or self-care (01) ==
LOC: ORPAIN 08:51
PROVIDERS: ATTEND Specialist
DX: M50.10 Cervical disc disorder with radiculopathy, unspecified cervical region (principal); Z88.2 Allergy status to sulfonamides; Z88.8 Allergy status to other drugs, medicaments and biological substances; Z91.010 Allergy to peanuts; N95.9 Unspecified menopausal and perimenopausal disorder
CPT/HCPCS: 62321; J2250; J1100; J3010; Q9966

== ENCOUNTER 2021-03-01 09:12 | Day surgery (SDC) | payer MEDICARE, OTHER ==
[2021-02-20 15:47] VITALS: BMI 30.8
[~2021-03-01 09:12] MED LIST changes: -LACTATED RINGERS 1,000 ML IV SCH; +LIDOCAINE 1% (10MG/ML) FOR IV START INTRADERMA PRN
[2021-03-01 09:59] VITALS: TEMP 96.8
[2021-03-01 10:16] LABS: Glucose,Whole Blood 105 mg/dL (75-99)
[2021-03-01] MEDS: LACTATED RINGERS 1,000 ML IV SCH ×2 (10:18→10:23)
[2021-03-01] MEDS ORDERED: LIDOCAINE 1% INJ 10MG/ML (20 ML MDV) ONE (10:26)
[2021-03-01] MEDS ORDERED: PROPOFOL 10 MG/ML 20 ML VIAL IV ONE (10:26)
--- NOTE | 2021-03-01 10:29 | P.GSHP ---
History of Present Illness H&P Date: 03/01/21 Chief Complaint: GERD,Screening colonoscopy This a 55-year-old female who presents today for colonoscopy. She's had issues with GERD. Past Medical History Past Medical History: CVA/TIA, GERD/Reflux, Hyperlipidemia, Hypertension, Osteo arthritis (OA), Thyroid Disorder Additional Past Medical History / Comment(s): Hx TIA'S, Poss seizures. Hx "Severe concussion". Varicose veins, STATES "Arrythmia." DDD w/ Ruptured discs in back/neck, IBS, Pre-cancer cervix. hx ulcer, hiatal hernia, elevated triglycerides, throid nodules, c/o lump in abd w/ tightness few wks ago, along w/ nausea, poor appetite for past week. History of Any Multi-Drug Resistant Organisms: None Reported Past Surgical History: Breast Surgery, Cholecystectomy, Orthopedic Surgery, Tubal Ligation, Uterine Ablation Additional Past Surgical History / Comment(s): Surgery for twisted ureter, Left Elbow surgery, Left CTR, Left Rotator Cuff X2, Bilat Breast Bx, Torn Left knee Meniscus, Deviated septum & sinus surgery. Pain procedures Past Anesthesia/Blood Transfusion Reactions: Previous Problems w/ Anesthesia, Family History of Problems w/ Anesthesia, Motion Sickness Additional Past Anesthesia/Blood Transfusion Reaction / Comment(s): Claustrophobic, (Brother - has PONV) after a pain clinic procedure had episode after getting home "felt like I was really high, could not walk, had to hold on to zhou"- lasted for hours. Smoking Status: Current every day smoker - Past Family History Father Family Medical History: Cancer, Coronary Artery Disease (CAD), CVA/TIA, Deep Vein Thrombosis (DVT) Additional Family Medical History / Comment(s): Skin Cancer; history of Alzheimer's disease, CAD, 4 vessel CABG, CVA Mother History Unknown: Yes Additional Family Medical History / Comment(s): Mother is alive at age 83 with history of hypertension. Son(s) Additional Family Medical History / Comment(s): patient has 2 sons and one has Depression Daughter(s) Family Medical History: No Reported History Additional Family Medical History / Comment(s): Patient has one daughter with no major medical problems. Brother(s) Family Medical History: Cancer Additional Family Medical History / Comment(s): Sinus cancer w/ mets; patient has 5 brothers. One at age 27 from suicide. One has coronary artery disease status post 2 vessel CABG. Medications and Allergies Home Medications Medication Instructions Recorded Confirmed Type Metoprolol Succinate (ER) [Toprol 50 mg PO QAM 11/06/17 03/01/21 History Xl] Cholecalciferol [Vitamin D3] 5,000 unit PO DAILY 09/14/18 03/01/21 History Cyanocobalamin (Vitamin B-12) 1,000 mcg PO DAILY 09/14/18 03/01/21 History [Vitamin B-12] lisinopriL [Zestril] 20 mg PO DAILY 09/14/18 03/01/21 History [facility]-3 Fatty Acids/Fish Oil [Fish 1 each PO BID 10/19/18 03/01/21 History Oil 1,000 mg Softgel] Acetaminophen [Tylenol Arthritis] 650 mg PO Q6H PRN 01/11/21 03/01/21 History Calcium Carbonate/Vitamin D3 2 each PO DAILY 01/11/21 03/01/21 History [Calcium 500 mg Chewable Tablet] Carboxymethylcellulos/Glycerin 1 drop BOTH EYES DIRECTED PRN 01/11/21 03/01/21 History [Refresh Relieva 0.5-0.9% Drop] Mv-Mn/Folic/Lutein/Herbal 293 1 each PO DAILY 01/11/21 03/01/21 History [Alive Women's 50 Plus Vitamins] Omeprazole [PriLOSEC] 20 mg PO AC-BRKFST 01/11/21 03/01/21 History Potassium Gluconate 99 mg PO DAILY 01/11/21 03/01/21 History busPIRone HCL 5 mg PO HS 01/11/21 03/01/21 History cycloSPORINE [Restasis] 1 applicator BOTH EYES BID 01/11/21 03/01/21 History Baclofen 10 mg PO BID 02/02/21 03/01/21 History Allergy Injection 1 injection INJ Q7D 02/20/21 03/01/21 History Allergies Allergy/AdvReac Type Severity Reaction Status Date / Time peanut Allergy Anaphylaxis Verified 03/01/21 09:50 Sulfa (Sulfonamide Allergy Vomiting Verified 03/01/21 09:50 Antibiotics) sumatriptan [From Imitrex] Allergy Anaphylaxis Verified 03/01/21 09:50 sumatriptan succinate Allergy Anaphylaxis Verified 03/01/21 09:50 [From Imitrex] tree nut [Nut] Allergy Anaphylaxis- Verified 03/01/21 09:50 ALL NUTS Surgical - Exam Vital Signs Temp Pulse Resp BP Pulse Ox 96.8 F L 90 18 119/59 97 03/01/21 09:57 03/01/21 09:57 03/01/21 09:57 03/01/21 09:57 03/01/21 09:57 - General well developed, well nourished, no distress - Eyes PERRL - ENT normal pinna - Neck no masses - Respiratory normal expansion - Cardiovascular Rhythm: regular - Abdomen Abdomen: soft, non tender Results - Labs Abnormal Lab Results - Last 24 Hours (Table) 03/01/21 Range/Units 10:15 POC Glucose (mg/dL) 105 H (75-99) mg/dL Assessment and Plan Assessment: GERD we'll perform EGD. We'll perform screening colonoscopy
--- NOTE | 2021-03-01 10:45 | P.OP ---
Date of Procedure: 03/01/21 Preoperative Diagnosis: GERD Screening colonoscopy Postoperative Diagnosis: Mild antral gastritis Normal colon Procedure(s) Performed: EGD Colonoscopy Anesthesia: MAC Surgeon: Rigoberto Chow Pathology: other (Antrum) Condition: stable Disposition: PACU Description of Procedure: PROCEDURE: The patient was placed on the endoscopy table in the lateral position. Digital rectal examination was performed which revealed no abnormalities. The prostate was symmetrical without nodules. Flexible colonos cope was then placed in the patient's anus and passed throughout the entire colon. The ileocecal valve was visualized. The cecum, ascending, transverse, descending and sigmoid colon were normal. The rectum was normal as well. There were no masses, polyps or diverticula noted in the entire colon. Next the gastro-/oropharynx passed in the esophagus and stomach. Scope was placed through the pylorus. The first and second of the duodenum appeared normal. Scope was then brought back the antrum this. Mildly inflamed. A biopsies performed. The scope was unretroflexed and remainder of the stomach appeared normal. There is no significant hiatal hernia. The GE junction was at 40 cm the distal esophagus appeared normal. The proximal esophagus appeared normal. Scope was withdrawn for patient.
[2021-03-01 10:49] VITALS: RESP 16
[2021-03-01 11:01] VITALS: BP 105/63; PULSE 74
== END 2021-03-01 11:24 | disposition home or self-care (01) ==
LOC: ORWHC2ENDO 09:12
PROVIDERS: ATTEND Surgery
DX: Z12.11 Encounter for screening for malignant neoplasm of colon (principal); K31.9 Disease of stomach and duodenum, unspecified; K21.9 Gastro-esophageal reflux disease without esophagitis; E78.5 Hyperlipidemia, unspecified; I10 Essential (primary) hypertension; M19.90 Unspecified osteoarthritis, unspecified site; E07.9 Disorder of thyroid, unspecified; Z86.73 Personal history of transient ischemic attack (TIA), and cerebral infarction without residual deficits; I83.90 Asymptomatic varicose veins of unspecified lower extremity; E78.1 Pure hyperglyceridemia; K58.9 Irritable bowel syndrome, unspecified; Z90.49 Acquired absence of other specified parts of digestive tract; Z98.890 Other specified postprocedural states; Z98.51 Tubal ligation status; F17.200 Nicotine dependence, unspecified, uncomplicated; Z82.49 Family history of ischemic heart disease and other diseases of the circulatory system; Z80.8 Family history of malignant neoplasm of other organs or systems; Z81.8 Family history of other mental and behavioral disorders; Z91.018 Allergy to other foods; F41.9 Anxiety disorder, unspecified; F32.9 Major depressive disorder, single episode, unspecified; F43.10 Post-traumatic stress disorder, unspecified; F41.0 Panic disorder [episodic paroxysmal anxiety]; Z79.899 Other long term (current) drug therapy; Z88.2 Allergy status to sulfonamides; Z88.8 Allergy status to other drugs, medicaments and biological substances; Z91.010 Allergy to peanuts
CPT/HCPCS: 88305; 43239; J2001; J2704; G0121; 45378

== ENCOUNTER → 2021-03-19 | Outpatient (CLI) | payer MEDICARE, OTHER ==
[2021-03-19 09:39] VITALS: BP 137/88; PULSE 84; RESP 18; TEMP 98.1
--- NOTE | 2021-03-19 09:52 | P.PN ---
Subjective Progress Note Date: 03/19/21 This is a 57-year-old lady with history of neck pain with radiation to both arms to the hands with numbness and tingling in both hands more on the left side than the right side. The 2 cervical epidural steroid injections which helped her pain decreased to a tolerable level at this point. The pain still wakes the patient up at night and she states that she gets only 2 hours of sleep because of this pain. She denies any bowel or bladder dysfunction at this point except for stress urinary incontinence. Dr. 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 Patient denies new-onset weakness, bowel/bladder incontinence, or any other signs or symptoms of cauda equina syndrome. There are no signs of acute intoxication, and no indications of medication diversion or overuse. In addition to above, 13-point review of systems is also negative for chest pain, shortness of breath, changes in vision, changes in hearing, new onset weakness, abdominal pain, diarrhea, extreme fatigue, malaise, fever, skin changes, homicidal or suicidal ideation, or bowel or bladder incontinence. Vital Signs: Reviewed in EMR Gen: AAOx3, NAD HEENT: PERRLA,hearing grossly normal Pulm: resp unlabored Neck: supple, trachea midline Neuro exam of the upper extremities: Normal muscle strength bilaterally Straight leg raising test: Jude's test: Range of motion of the cervical spine: Decreased especially to extension Facet loading test: Tenderness in the paravertebral musculature: Positive in the cervical paravertebral musculature bilaterally Neuro: CN II-XII grossly intact, Imaging: Reviewed in EMR/chart Assessment: Cervical radiculopathy Cervical spondylosis without myelopathy Plan: 1. Explanation: Opioid and psychological risk scores were reviewed. Diagnoses, prognoses, and multiple treatment options including but not limited to physical therapy, interventional therapies, adjuvant medical therapies, narcotic medication therapies, and surgery were discussed with the patient and all questions were answered to the patient's satisfaction. 2. Opioid agreement: Signed with the patient and the patient is warned not to use opioids while driving or before driving and not to combine opioids with benzodiazepines or alcohol. 3. Counseling: The patient was counseled extensively on SMOKING CESSATION, BODY MASS INDEX, EXERCISE. Specifically, the patient was instructed regarding the importance of smoking cessation, obesity, and exercise in the context of both chronic pain and overall health. 4. Procedures: none for now . But she might benefit from another cervical epidural steroid injection in the future. 5. Consultations: None 6. Investigations: None 7. Medications: Neurontin 300 mg daily at bedtime #30 pills with no refills 8. Disposition: Return to clinic in 4 weeks 9. Maps were reviewed and were appropriate. Objective - Vital Signs Vital signs: Vital Signs Temp 98.1 F 03/19/21 09:35 Pulse 84 03/19/21 09:35 Resp 18 03/19/21 09:35 BP 137/88 03/19/21 09:35 Pulse Ox 97 03/19/21 09:35
== END | disposition home or self-care (01) ==
LOC: PNWHC3 09:23
PROVIDERS: ATTEND Anesthesiology
DX: M47.892 Other spondylosis, cervical region (principal); M54.12 Radiculopathy, cervical region
CPT/HCPCS: 99211

== ENCOUNTER → 2021-04-16 | Outpatient (CLI) | payer MEDICARE, OTHER ==
[2021-04-16 08:58] VITALS: BP 161/107; PULSE 87; RESP 18; TEMP 98.2
--- NOTE | 2021-04-16 09:08 | P.PAINPG ---
Subjective Progress Note Date: 04/16/21 This is a 57-year-old lady with history of neck pain with radiation to both arms to the hands with numbness and tingling in both hands more on the left side than the right side. The 2 cervical epidural steroid injections which helped her pain decreased to a tolerable level at this point. The pain still wakes the patient up at night and she states that she gets only 2 hours of sleep because of this pain. She denies any bowel or bladder dysfunction at this point except for stress urinary incontinence. Dr. 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 We have her on Neurontin 300 mg QHS and may repeat BREANA in the future. She notes that overall procedures and medication helped her. Specifically the medications helped her with her sleep as prior to starting starting gabapentin is only sleeping 2 hours today. She wishes she could have something to help her during the day. Patient denies new-onset weakness, bowel/bladder incontinence, or any other signs or symptoms of cauda equina syndrome. There are no signs of acute intoxication, and no indications of medication diversion or overuse. In addition to above, 13-point review of systems is also negative for chest sarah n, shortness of breath, changes in vision, changes in hearing, new onset weakness, abdominal pain, diarrhea, extreme fatigue, malaise, fever, skin changes, homicidal or suicidal ideation, or bowel or bladder incontinence. Vital Signs: Reviewed in EMR Gen: AAOx3, NAD HEENT: PERRLA,hearing grossly normal Pulm: resp unlabored Neck: supple, trachea midline Neuro exam of the upper extremities: Normal muscle strength bilaterally Range of motion of the cervical spine: Decreased especially to extension Tenderness in the paravertebral musculature: Positive in the cervical paravertebral musculature bilaterally Neuro: CN II-XII grossly intact, Imaging: Reviewed in EMR/chart Assessment: Cervical radiculopathy Cervical spondylosis without myelopathy Plan: - We will hold off on repeating cervical epidural steroid injection and she just had 2 recently. We will increase her gabapentin to 300 mg twice a day in hope to establish more as analgesia throughout the day. I have spent 26 minutes on patient care today. The time was used to review the medical records including relevant urine studies and prescription history, review of the available imaging, evaluation and examination of the patient, coordination of care with the medical staff and if applicable referring physicians, as well as creation of the medical record. PQRS Measure Charge Sheet PQRS Narrative: Smoking Status Current every day smoker Pain Intensity [Neck] 6 Scale Used Numeric (1 - 10) Hx Alcohol Use (MH) Yes Home Medications: Ambulatory Orders Metoprolol Succinate (ER) [Toprol Xl] 50 mg PO QAM 11/06/17 Cholecalciferol [Vitamin D3] 5,000 unit PO DAILY 09/14/18 Cyanocobalamin (Vitamin B-12) [Vitamin B-12] 1,000 mcg PO DAILY 09/14/18 lisinopriL [Zestril] 20 mg PO DAILY 09/14/18 [facility]-3 Fatty Acids/Fish Oil [Fish Oil 1,000 mg Softgel] 1 each PO BID 10/19/18 Acetaminophen [Tylenol Arthritis] 650 mg PO Q6H PRN 01/11/21 Calcium Carbonate/Vitamin D3 [Calcium 500 mg Chewable Tablet] 2 each PO DAILY 01/11/21 Carboxymethylcellulos/Glycerin [Refresh Relieva 0.5-0.9% Drop] 1 drop BOTH EYES DIRECTED PRN 01/11/21 Mv-Mn/Folic/Lutein/Herbal 293 [Alive Women's 50 Plus Vitamins] 1 each PO DAILY 01/11/21 Omeprazole [PriLOSEC] 20 mg PO AC-BRKFST 01/11/21 Potassium Gluconate [Potassium Gluconate ER] 99 mg PO DAILY 01/11/21 busPIRone HCL 5 mg PO HS 01/11/21 cycloSPORINE [Restasis] 1 applicator BOTH EYES BID 01/11/21 Baclofen 10 mg PO BID 02/02/21 Allergy Injection 1 injection INJ Q7D 02/20/21 Gabapentin [Neurontin] 300 mg PO BID 30 Days #60 cap 04/16/21 Controlled Substance Measures - Controlled Substance Measures Is patient prescribed a controlled substance at discharge?: No
== END | disposition home or self-care (01) ==
LOC: PNWHC3 08:43
PROVIDERS: ATTEND Anesthesiology
DX: M54.12 Radiculopathy, cervical region (principal); M47.892 Other spondylosis, cervical region
CPT/HCPCS: 99211

== ENCOUNTER → 2021-07-27 | Outpatient (CLI) | payer MEDICARE, OTHER ==
--- NOTE | 2021-07-27 10:48 | US ---
EXAMINATION TYPE: US thyroid st tissue head/neck DATE OF EXAM: 07/27/2021 COMPARISON: CT cervical spine June 11, 2019 CLINICAL HISTORY: E04.2 Nontoxic multinodular goiter. Pt states known thyroid nodules, no prior scan here GLAND SIZE: Right Lobe: 5.4 x 1.4 x 1.8 cm Overall Parenchyma: heterogenous Left Lobe: 4.2 x 1.1 x 1.4 cm Overall Parenchyma: heterogeneous Isthmus Thickness: 0.3 cm NODULES RIGHT: # of nodules measured on right: 1 1. 1.4 X 0.9 x 1.2 cm, lower, solid or almost completely solid, hypoechoic nodule, which is wider t gibbons tall, with lobulated or irregular margins, without echogenic foci. Prior size: No prior Multiple other, sub-centimeter nodules scattered throughout right lobe, largest nodule measured LEFT: # of nodules measured on left: 2 1. 1.8 X 1.0 x 1.5 cm, lower, solid or almost completely solid, hypoechoic nodule, which is wider t gibbons tall, with lobulated or irregular margins, without echogenic foci. TR 4 2. 1.5 X 1.0 x 0.9 cm, mid, solid or almost completely solid, isoechoic nodule, which is wider agueda n tall, with smooth margins, without echogenic foci. TR 3 Bilateral neck scanned, no evidence of lymphadenopathy. Nodules bilaterally. Heterogeneous normal-sized thyroid with scattered subcentimeter nodules and larger left-sided nodule noted above. IMPRESSION: The 1.8 cm left thyroid nodule is moderately suspicious TR 4 lesion. FNA is advised. 2017 ACR TI-RADS LEVEL: TR-RADS 4 - Moderately Suspicious: Follow if > 1 cm, FNA if > 1.5 cm *Highest TI-RADS level nodule reported
[2021-07-27 12:08] LABS: T4, Free (Free Thyroxine) 0.9 ng/dL (0.78-2.19)
== END | disposition home or self-care (01) ==
LOC: RADUSWWP 10:05
PROVIDERS: ATTEND Internal Medicine
DX: E04.2 Nontoxic multinodular goiter (principal)
CPT/HCPCS: 76536; 82306; 84439; 84443

== ENCOUNTER → 2021-11-22 | Outpatient (CLI) | payer MEDICARE, OTHER ==
[2021-11-22 13:09] VITALS: BP 148/93; PULSE 104; RESP 18; TEMP 98.2
--- NOTE | 2021-11-22 13:51 | P.PN ---
Subjective Progress Note Date: 11/22/21 Principal diagnosis: A 56 yr old female with a history of severe and chronic neck pain secondary to cervical degenerative disc diseases and spondylosis with facet arthropathy presents today for evaluation and medication refill. Pain level is 8 out of 10 in intensity, sharp, shooting pain in the lower aspect of her cervical spine to the upper extremities, right greater than left. Pain is provoked by flexion, extension or lifting. Pain is alleviated with medications, topicals which she can no longer afford, injections, moist heat, physical therapy in 2019 or 2020 which made it worse, chiropractic treatments which she can no longer afford, basic home stretching regimen when she is not in intense pain, massage which has caused edema and swelling in the past, and rest. Interventional pain procedures completed include BREANA C7-T1 2 Patient is currently on Neurontin 300 mg Patient denies any side effects of the medication(s), denies excessive drowsiness or sleepiness, denies suicidal ideation and reports that the current pain medication is helping to control the pain and improve activities of daily living. Patient denies any motor or sensory deficits. Patient denies any fever or night sweats, denies any change in the bowel movements or urination. Physical Examination: -Constitutional: Cooperative. Not in acute distress . -HEENT: Neck is supple. No lymphadenopathy. No thyromegaly. Normal thyroid size. Eyes: No ptosis , no icterus, no photophobia. ENT: No auditory deficits. Normal oropharynx. No Thrush. - Respiratory: Chest clear to auscultations bilaterally. No wheezing. No rhonchi. - Cardiovascular: Regular rate and rhythm. S1 / S2 , no S3 , no S4. - Gastrointestinal: Abdomen soft no tenderness. Bowel sounds positive in all four quadrants. No organomegaly. - Genitourinary: Deferred. - Neurologic: Cranial nerve II to XII intact. No focal neurological deficits. - Psychatric: Alert & oriented x 3. Matching mood & appropriate affect. Judgment and insight intact. - Lymphatic: No Lymphadenopathy. - Musculoskeletal: Cervical spine: Muscle bulk/ tone/ strength in the bilateral upper extremities normal. Vertebral body tenderness over C7 Spurling test positive Distraction test negative Facet loading test cervical area positive. Lumbar spine: Motor bulk/ tone/ strength lower extremities , thigh and legs : 5/5 Deep tendon reflexes : Normal Knee Jerk. Normal Ankle Jerk . Vertebral body tenderness to palpation over Lumbar Facet Loading Test positive Straight Leg Raise: positive at 30 degrees right side/ left side Gaenslen's Test positive Sacral spine : Severe tenderness over the Sacroiliac joint: right side / left side Range of motion: Flexion of the lumbar spine <60 degrees Range of motion: Extension of the lumbar spine <20 degrees Gaenslen's Test positive Jaime test: positive right side / left side Assessment and plan: Chronic low back pain secondary to lumbar degenerative disc disease , lumbar spondylosis with facet arthropathy without myelopathy Recommendation of BREANA C7-T1. May need a series of injections, up to 3 within a six-month period, to obtain optimal pain relief. Risks, benefits of procedure discussed and patient verbalized understanding. Denies medical history of diabetes. Denies anticoagulants use. Chronic and current use of high-risk medication (Opioids). The patient was counseled about risk of opioid use, psychological risk associated with opioids and was orally counseled to not overuse , divert or sell medications. Pt is to store medication in a safe location. The patient is counseled against driving while using narcotic medica tions and also not to use alcohol or any illicit recreational drugs. Patient verbalized understanding that the lack of compliance will result in failure to renew narcotic prescription(s) as well as possible discharge from the clinic Diagnoses, prognosis and treatment options including but not limited to physical therapy, surgical interventions, interventional therapies and medicatio n management including narcotics and adjuvant medication were discussed. All patient questions answered MAPS reviewed and it was appropriate. Prescription refill for Neurontin 300mg #60 w 1 refill. I have spent 31 minutes on patient care today. Dr Mcgee was available by phone for the evaluation of this patient. The time was used to review the medical records including relevant urine studies and Prescription history (MAPs), review of the available imaging, evaluation and examination of the patient, coordination of care with the medical staff and if applicable referring physicians, as well as creation of the medical record Objective - Vital Signs Vital signs: Vital Signs Temp 98.2 F 11/22/21 13:03 Pulse 104 H 11/22/21 13:03 Resp 18 11/22/21 13:03 BP 148/93 11/22/21 13:03 Pulse Ox 95 11/22/21 13:03 PQRS Measure Charge Sheet Mode of Arrival: Ambulatory - Pain Location Neck Non-Pharmacological Interventions: Chiropractic Treatment, Heat, Home Exercise, Ice, Inactivity, Massage, Meditation, Physical Therapy, Stretching Pharmacological Interventions: Epidural, PRN Medication PQRS Narrative: Smoking Status Current every day smoker Blood Pressure 148/93 Pain Intensity [Neck] 8 Scale Used Numeric (1 - 10) Hx Alcohol Use (MH) Yes Home Medications: Ambulatory Orders Metoprolol Succinate (ER) [Toprol Xl] 50 mg PO QAM 11/06/17 Cholecalciferol [Vitamin D3] 5,000 unit PO DAILY 09/14/18 Cyanocobalamin (Vitamin B-12) [Vitamin B-12] 1,000 mcg PO DAILY 09/14/18 lisinopriL [Zestril] 20 mg PO DAILY 09/14/18 [place]-3 Fatty Acids/Fish Oil [Fish Oil 1,000 mg Softgel] 1 each PO BID 10/19/18 Acetaminophen [Tylenol Arthritis] 650 mg PO Q6H PRN 01/11/21 Calcium Carbonate/Vitamin D3 [Calcium 500 mg Chewable Tablet] 2 each PO DAILY 01/11/21 Carboxymethylcellulos/Glycerin [Refresh Relieva 0.5-0.9% Drop] 1 drop BOTH EYES DIRECTED PRN 01/11/21 Mv-Mn/Folic/Lutein/Herbal 293 [Alive Women's 50 Plus Vitamins] 1 each PO DAILY 01/11/21 Omeprazole [PriLOSEC] 20 mg PO AC-BRKFST 01/11/21 Potassium Gluconate [Potassium Gluconate ER] 99 mg PO DAILY 01/11/21 cycloSPORINE [Restasis] 1 applicator BOTH EYES BID 01/11/21 Baclofen 10 mg PO TID 02/02/21 Allergy Injection 1 injection INJ Q7D 02/20/21 Rosuvastatin Calcium 10 mg PO DAILY 11/20/21 Gabapentin [Neurontin] 300 mg PO BID 30 Days #60 cap 11/22/21
== END | disposition home or self-care (01) ==
LOC: PNWHC3 12:41
PROVIDERS: ATTEND Specialist
DX: M47.896 Other spondylosis, lumbar region (principal); M51.36 Other intervertebral disc degeneration, lumbar region
CPT/HCPCS: 99211

== ENCOUNTER → 2021-12-10 | Outpatient (CLI) | payer MEDICARE, OTHER ==
--- NOTE | 2021-12-10 09:04 | CT ---
EXAMINATION TYPE: CT urogram wo/w con DATE OF EXAM: 12/10/2021 INDICATION: microscopic hematuria, bladder pain CT DLP: 3298 mGy.cm Automated Exposure Control for Dose Reduction was Utilized. TECHNIQUE AND CONTRAST: CT scan of the abdomen and pelvis is performed without and with IV Contrast, as per CT urogram protoc ol. The patient injected with 100 mL of Isovue 300. 3-D reconstruction images were generated on an in dependent workstation and reviewed. COMPARISON: CT dated 02/01/2022 FINDINGS: No definite radiodense urinary calculi. No hydroureter or hydronephrosis. 16 mm cyst is seen at the l ower pole of right kidney without gross suspicious feature. No other definite renal lesion identified . No definite filling defect is seen within the renal collecting system or the opacified portion of the ureters. Well-distended urinary bladder without definite lesion. No gross uterine or adnexal mass. Unremarkable visualized portion of the liver, spleen, pancreas and adrenals. Previous cholecystectomy . Scattered arterial atherosclerotic calcifications. Unremarkable stomach, duodenum and small bowel. Scattered uncomplicated colonic diverticulosis. No gross colonic mass. Normal appendix. No suspicious lymphadenopathy or sizable ascites. Very small fat-containing umbilical hernia. Bilateral basal pulmonary peripheral reticulations and dependent den sities. No aggressive bone lesion. IMPRESSION: No definite radiodense urinary calculi. 16 mm right lower pole renal cyst without suspicious features . No definite suspicious urinary lesion identified. Incidental findings as described above.
== END | disposition home or self-care (01) ==
LOC: RADCTMAIN 06:28
PROVIDERS: ATTEND Urology
DX: R31.1 Benign essential microscopic hematuria (principal)
CPT/HCPCS: 74178; 74400; Q9967

== ENCOUNTER → 2021-12-19 | Outpatient (CLI) | payer MEDICARE, OTHER ==
--- NOTE | 2021-12-19 14:32 | MM ---
Reason for exam: screening (asymptomatic). Last mammogram was performed 1 year and 3 months ago. History: Patient is postmenopausal and has history of other cancer at age 25. Family history of breast cancer in paternal grandmother. Benign US breast aspiration ea add RT of the right breast, November 01, 2016. Benign US biopsy breast VAD LT of the left breast, November 01, 2016. Benign US biopsy breast VAD RT of the right breast, November 01, 2016. Benign US right guided VAD of the right breast, April 19, 2011. Benign cyst aspiration of the left breast, December 07, 2004. Benign cyst aspiration of the right breast, December 07, 2004. Benign ultrasound-guided cyst aspiration of the left breast, December 07, 2004. Benign ultrasound-guided cyst aspiration of the right breast, December 07, 2004. Benign ultrasound-guided cyst aspiration of the right breast, December 07, 2004. Benign ultrasound-guided cyst aspiration of the right breast, May 17, 2004. Benign ultrasound-guided cyst aspiration of the right breast, May 17, 2004. Benign excisional biopsy of the left breast, October 22, 2001. 5 cyst aspirations of the left breast. Excisional biopsy of the left breast. Physical Findings: A clinical breast exam by your physician is recommended on an annual basis and results should be correlated with mammographic findings. MG 3D Screening Mammo W/Cad Bilateral CC and MLO view(s) were taken. Prior study comparison: September 12, 2020, bilateral MG 3d screening mammo w/cad. April 03, 2017, bilateral MG 3d diag mammo w/cad NOAM. The breast tissue is heterogeneously dense. This may lower the sensitivity of mammography. Previous mammotome biopsy in the right breast x 3 and in the left breast. There is chronic nodularity in the left breast. There is no discrete abnormality. ASSESSMENT: Benign, BI-RAD 2 RECOMMENDATION: Routine screening mammogram of both breasts in 1 year.
== END | disposition home or self-care (01) ==
LOC: RADMAMWWP 11:56
PROVIDERS: ATTEND Internal Medicine
DX: Z12.31 Encounter for screening mammogram for malignant neoplasm of breast (principal)
CPT/HCPCS: 77063; 77067

== ENCOUNTER → 2022-03-07 | Outpatient (CLI) | payer MEDICARE, OTHER ==
--- NOTE | 2022-03-07 11:41 | CT ---
EXAMINATION TYPE: CT sinus wo con DATE OF EXAM: 03/07/2022 COMPARISON: 07/03/2018 HISTORY: chronic sinusitis following prior sinus surgery CT DLP: 562 mGycm. Automated Exposure Control for Dose Reduction was Utilized. TECHNIQUE: CT scan of the sinuses is performed without contrast, axial images are obtained, coronal r eformatted images are also reviewed. FINDINGS: The paranasal sinuses including the frontal, ethmoid, sphenoid, and maxillary sinuses bila terally are well-aerated without abnormal opacification. The ostiomeatal complex is patent bilateral ly on the coronal images. Nasal septal deviation. Visualized portion of mastoid air cells show no abnormal opacification. The globes are intact bilate rally. Dental work artifact noted. IMPRESSION: 1. The sinuses are clear and the ostiomeatal complex is patent bilaterally. 2. Nasal septal deviation
== END | disposition home or self-care (01) ==
LOC: RADCTMAIN 11:07
PROVIDERS: ATTEND Otolaryngology
DX: J32.9 Chronic sinusitis, unspecified (principal)
CPT/HCPCS: 70486

== ENCOUNTER 2022-07-17 12:24 | Inpatient (IN) | payer MEDICARE, OTHER ==
[2022-07-17 12:35] LABS: Glucose,Whole Blood 135 mg/dL (70-110)
--- NOTE | 2022-07-17 12:44 | ED ---
General Adult HPI - General Chief complaint: Neuro Symptoms/Deficit Stated complaint: face & arm numbness Time Seen by Provider: 07/17/22 12:35 Source: patient, RN notes reviewed Mode of arrival: ambulatory Limitations: no limitations - History of Present Illness Initial comments: Patient is a pleasant 57-year-old female presenting to the emergency department with sensation of heaviness of her left arm and face. Onset of symptoms was around 1 hour prior to arrival, around 11:30. Patient denies having symptoms when she woke up however states she has not been feeling well, even since last night. Patient has had some intermittent headaches over the past couple of weeks. No headaches the last couple of days. No headache at this time. Patient states she is walking fine. - Related Data Home Medications Medication Instructions Recorded Confirmed Metoprolol Succinate (ER) [Toprol 50 mg PO QAM 11/06/17 11/20/21 Xl] Cholecalciferol [Vitamin D3] 5,000 unit PO DAILY 09/14/18 11/20/21 Cyanocobalamin (Vitamin B-12) 1,000 mcg PO DAILY 09/14/18 11/20/21 [Vitamin B-12] lisinopriL [Zestril] 20 mg PO DAILY 09/14/18 11/20/21 [place]-3 Fatty Acids/Fish Oil [Fish 1 each PO BID 10/19/18 11/20/21 Oil 1,000 mg Softgel] Acetaminophen [Tylenol Arthritis] 650 mg PO Q6H PRN 01/11/21 11/22/21 Calcium Carbonate/Vitamin D3 2 each PO DAILY 01/11/21 11/20/21 [Calcium 500 mg Chewable Tablet] Carboxymethylcellulos/Glycerin 1 drop BOTH EYES DIRECTED PRN 01/11/21 11/20/21 [Refresh Relieva 0.5-0.9% Drop] Mv-Mn/Folic/Lutein/Herbal 293 1 each PO DAILY 01/11/21 11/20/21 [Alive Women's 50 Plus Vitamins] Omeprazole [PriLOSEC] 20 mg PO AC-BRKFST 01/11/21 11/20/21 Potassium Gluconate [Potassium 99 mg PO DAILY 01/11/21 11/20/21 Gluconate ER] cycloSPORINE [Restasis] 1 applicator BOTH EYES BID 01/11/21 11/20/21 Baclofen 10 mg PO TID 02/02/21 11/20/21 Allergy Injection 1 injection INJ Q7D 02/20/21 11/22/21 Rosuvastatin Calcium 10 mg PO DAILY 11/20/21 11/22/21 Previous Rx's Medication Instructions Recorded Gabapentin [Neurontin] 300 mg PO BID 30 Days #60 cap 11/22/21 Allergies Allergy/AdvReac Type Severity Reaction Status Date / Time peanut Allergy Anaphylaxis Verified 07/17/22 12:29 Sulfa (Sulfonamide Allergy Vomiting Verified 07/17/22 12:29 Antibiotics) sumatriptan [From Imitrex] Allergy Anaphylaxis Verified 07/17/22 12:29 sumatriptan succinate Allergy Anaphylaxis Verified 07/17/22 12:29 [From Imitrex] tree nut [Nut] Allergy Anaphylaxis- Verified 07/17/22 12:29 ALL NUTS atorvastatin AdvReac insomnia Verified 07/17/22 12:29 Review of Systems ROS Statement: Those systems with pertinent positive or pertinent negative responses have been documented in the HPI. ROS Other: All systems not noted in ROS Statement are negative. Constitutional: Denies: fever Eyes: Denies: eye pain ENT: Denies: ear pain Respiratory: Denies: cough Cardiovascular: Denies: chest pain Endocrine: Denies: fatigue Gastrointestinal: Denies: abdominal pain Genitourinary: Denies: dysuria Musculoskeletal: Denies: back pain Skin: Denies: rash Neurological: Reports: as per HPI Past Medical History Past Medical History: CVA/TIA, GERD/Reflux, Hyperlipidemia, Hypertension, Musculoskeletal Disorder, Osteoarthritis (OA), Thyroid Disorder Additional Past Medical History / Comment(s): Hx TIA'S, possible seizures long time ago. Hx "Severe concussion". Varicose veins. Hx "Arrythmia." DDD w/ ruptured discs back/neck. IBS. Pre-cancer cervix. Hx ulcer, hiatal hernia, thyroid nodules. Complains of being tired, weak, elevated liver count. Blood in urine/pain for a few months now. History of Any Multi-Drug Resistant Organisms: None Reported Past Surgical History: Breast Surgery, Cholecystectomy, Orthopedic Surgery, Tubal Ligation, Uterine Ablation Additional Past Surgical History / Comment(s): Surgery for twisted ureter, Left Elbow surgery, Left CTR, Left Rotator Cuff X2, Bilateral Breast Bx, Torn Left knee Meniscus, Deviated septum & sinus surgery, Pain procedures. Past Anesthesia/Blood Transfusion Reactions: Previous Problems w/ Anesthesia, Family History of Problems w/ Anesthesia, Motion Sickness Additional Past Anesthesia/Blood Transfusion Reaction / Comment(s): Claustrophobic, (Brother - has PONV) Hx after 1st pain clinic procedure had episode after getting home "felt like I was really high, could not walk, had to hold on to zhou"- lasted for hours. Past Psychological History: Anxiety, Depression, Panic Disorder, PTSD Smoking Status: Current every day smoker Past Alcohol Use History: None Reported Past Drug Use History: None Reported - Past Family History Father Family Medical History: Cancer, Coronary Artery Disease (CAD), CVA/TIA, Deep Vein Thrombosis (DVT) Additional Family Medical History / Comment(s): Skin Cancer; history of Alzheimer's disease, CAD, 4 vessel CABG, CVA. Mother History Unknown: Yes Additional Family Medical History / Comment(s): Mother is alive at age 83 with history of hypertension. Son(s) Additional Family Medical History / Comment(s): patient has 2 sons and one has Depression Daughter(s) Family Medical History: No Reported History Additional Family Medical History / Comment(s): Patient has one daughter with no major medical problems. Brother(s) Family Medical History: Cancer Additional Family Medical History / Comment(s): Sinus cancer w/ mets; patient has 5 brothers. One at age 27 from suicide. One has coronary artery disease status post 2 vessel CABG. General Exam Limitations: no limitations General appearance: alert, in no apparent distress Head exam: Present: atraumatic, normocephalic Eye exam: Present: normal appearance, PERRL, EOMI. Absent: nystagmus ENT exam: Present: normal oropharynx Neck exam: Present: normal inspection Respiratory exam: Present: normal lung sounds bilaterally Cardiovascular Exam: Present: regular rate, normal rhythm GI/Abdominal exam: Present: soft. Absent: tenderness Extremities exam: Present: normal inspection Neurological exam: Present: alert, oriented X3 Expanded Neurological exam: Present: protecting the airway Patient oriented to: Present: person, place, time Speech: Present: fluid speech Cranial nerves: EOM's Intact: Normal, Facial Sensation: Normal (Patient states she is able feel fine both sides, just feels funny), Facial Palsy with Forehead Movement: Abnormal Left (Minimal left facial droop. No forehead involvement) Sensory exam: Upper Extremity Light Touch: Normal, Lower Extremity Light Touch: Normal Motor strength exam: RUE: 5, LUE: 5, RLE: 5, LLE: 5 Eye Response: (4) open spontaneously Motor Response: (6) obeys commands Verbal Response: (5) oriented Psychiatric exam: Present: normal affect, normal mood Skin exam: Present: normal color Course Vital Signs 07/17/22 07/17/22 07/17/22 12:26 13:05 13:22 Temperature 97.7 F 98.3 F Pulse Rate 91 101 H 86 Respiratory 18 18 16 Rate Blood Pressure 160/84 163/85 151/85 O2 Sat by Pulse 98 99 96 Oximetry 07/17/22 07/17/22 13:31 13:52 Temperature 98.4 F Pulse Rate 86 90 Respiratory 16 18 Rate Blood Pressure 138/77 127/72 O2 Sat by Pulse 96 97 Oximetry - Reevaluation(s) Reevaluation #1: 07/17/22 12:55 NIH of 1. Case was discussed with Dr. Graves with neurology who agreed patient is not a TPA candidate. It is felt that the risks outweigh the benefits. EKG Findings - EKG Comments: EKG Findings:: EKG interpreted by myself shows sinus rhythm at 98. MI 138. QRS 85. QT 276. QTc 431. Normal axis. Normal QRS. No acute ST change. Medical Decision Making - Medical Decision Making Patient reevaluated and states she is feeling a little bit better. Patient and family updated on results and plan. Dr. Starkey has been paged for admission for Dr. Fatima. - Lab Data Result diagrams: 07/17/22 12:44 07/17/22 12:44 Lab Results 07/17/22 07/17/22 07/17/22 Range/Units 12:33 12:44 12:44 WBC 14.4 H (3.8-10.6) k/uL RBC 4.67 (3.80-5.40) m/uL Hgb 14.8 (11.4-16.0) gm/dL Hct 43.1 (34.0-46.0) % MCV 92.3 (80.0-100.0) fL MCH 31.7 (25.0-35.0) pg MCHC 34.4 (31.0-37.0) g/dL RDW 12.6 (11.5-15.5) % Plt Count 380 (150-450) k/uL MPV 8.2 Neutrophils % 45 % Lymphocytes % 46 % Monocytes % 4 % Eosinophils % 2 % Basophils % 1 % Neutrophils # 6.5 (1.3-7.7) k/uL Lymphocytes # 6.6 H (1.0-4.8) k/uL Monocytes # 0.6 (0-1.0) k/uL Eosinophils # 0.2 (0-0.7) k/uL Basophils # 0.1 (0-0.2) k/uL PT 10.0 (9.0-12.0) sec INR 0.9 (<1.2) APTT 24.3 (22.0-30.0) sec Sodium (137-145) mmol/L Potassium (3.5-5.1) mmol/L Chloride (98-107) mmol/L Carbon Dioxide (22-30) mmol/L Anion Gap mmol/L BUN (7-17) mg/dL Creatinine (0.52-1.04) mg/dL Est GFR (CKD-EPI)AfAm (>60 ml/min/1.73 sqM) Est GFR (CKD-EPI)NonAf (>60 ml/min/1.73 sqM) Glucose (74-99) mg/dL POC Glucose (mg/dL) 135 H (70-110) mg/dL POC Glu Rebar Worker ID Elizabet Rehman Calcium (8.4-10.2) mg/dL Total Bilirubin (0.2-1.3) mg/dL AST (14-36) U/L ALT (4-34) U/L Alkaline Phosphatase (38-126) U/L Total Protein (6.3-8.2) g/dL Albumin (3.5-5.0) g/dL 07/17/22 Range/Units 12:44 WBC (3.8-10.6) k/uL RBC (3.80-5.40) m/uL Hgb (11.4-16.0) gm/dL Hct (34.0-46.0) % MCV (80.0-100.0) fL MCH (25.0-35.0) pg MCHC (31.0-37.0) g/dL RDW (11.5-15.5) % Plt Count (150-450) k/uL MPV Neutrophils % % Lymphocytes % % Monocytes % % Eosinophils % % Basophils % % Neutrophils # (1.3-7.7) k/uL Lymphocytes # (1.0-4.8) k/uL Monocytes # (0-1.0) k/uL Eosinophils # (0-0.7) k/uL Basophils # (0-0.2) k/uL PT (9.0-12.0) sec INR (<1.2) APTT (22.0-30.0) sec Sodium 141 (137-145) mmol/L Potassium 3.8 (3.5-5.1) mmol/L Chloride 106 (98-107) mmol/L Carbon Dioxide 26 (22-30) mmol/L Anion Gap 9 mmol/L BUN 14 (7-17) mg/dL Creatinine 0.63 (0.52-1.04) mg/dL Est GFR (CKD-EPI)AfAm >90 (>60 ml/min/1.73 sqM) Est GFR (CKD-EPI)NonAf >90 (>60 ml/min/1.73 sqM) Glucose 134 H (74-99) mg/dL POC Glucose (mg/dL) (70-110) mg/dL POC Glu Rebar Worker ID Calcium 9.9 (8.4-10.2) mg/dL Total Bilirubin 0.4 (0.2-1.3) mg/dL AST 34 (14-36) U/L ALT 23 (4-34) U/L Alkaline Phosphatase 129 H (38-126) U/L Total Protein 8.0 (6.3-8.2) g/dL Albumin 5.0 (3.5-5.0) g/dL - Radiology Data Radiology results: report reviewed (CT angios head and neck does not reveal acute process.), image reviewed (Computed tomography scan of the brain interpreted by myself as well shows atrophy. No acute hemorrhage. Two-view chest x-ray interpreted by myself shows no acute process.) Disposition Clinical Impression: Cerebrovascular accident (CVA) Disposition: ADMITTED IP TO THIS HOSP Is patient prescribed a controlled substance at d/c from ED?: No Referrals: Yao Fatima DO [Primary Care Provider] - 1-2 days Time of Disposition: 14:12
[2022-07-17 12:55] LABS: Basophils # (A) 0.1 k/uL (0-0.2); Basophils % (A) 1 %; Eosinophils # (A) 0.2 k/uL (0-0.7); Eosinophils % (A) 2 %; HCT 43.1 % (34.0-46.0); HGB 14.8 gm/dL (11.4-16.0); Lymphocytes # (A) 6.6 k/uL (1.0-4.8); Lymphocytes % (A) 46 %; MCH 31.7 pg (25.0-35.0); MCHC 34.4 g/dL (31.0-37.0); MCV 92.3 fL (80.0-100.0); Mean Platelet Volume 8.2; Monocytes # (A) 0.6 k/uL (0-1.0); Monocytes % (A) 4 %; Neutrophils # (A) 6.5 k/uL (1.3-7.7); Neutrophils % (A) 45 %; Platelet Count 380 k/uL (150-450); RBC 4.67 m/uL (3.80-5.40); RDW 12.6 % (11.5-15.5); WBC 14.4 k/uL (3.8-10.6)
[2022-07-17 13:05] LABS: ALT 23 U/L (4-34); AST 34 U/L (14-36); African American GFR (CKD) >90 (>60 ml/min/1.73 sqM); Alkaline Phosphatase 129 U/L (38-126); Anion Gap 9 mmol/L; Blood Urea Nitrogen 14 mg/dL (7-17); Calcium 9.9 mg/dL (8.4-10.2); Carbon Dioxide 26 mmol/L (22-30); Chloride 106 mmol/L (98-107); Glucose 134 mg/dL (74-99); Non-African American GFR(CKD) >90 (>60 ml/min/1.73 sqM); Potassium 3.8 mmol/L (3.5-5.1); Sodium 141 mmol/L (137-145); Total Bilirubin 0.4 mg/dL (0.2-1.3)
--- NOTE | 2022-07-17 13:10 | CT ---
EXAMINATION TYPE: CT brain wo con for TPA DATE OF EXAM: 07/17/2022 HISTORY: Lt side numbness, Lt facial droop CT DLP: 1070.6 mGycm. Automated Exposure Control for Dose Reduction was Utilized. TECHNIQUE: CT scan of the head is performed without contrast. COMPARISON: 06/11/19 FINDINGS: There is no acute intracranial hemorrhage or midline shift identified. There is diffuse v entricular and sulcal prominence consistent with diffuse age-related cerebral atrophy. There is low- attenuation in the periventricular white matter consistent with chronic small vessel ischemic change. The globes are intact and the visualized sinuses are clear. IMPRESSION: No acute intracranial hemorrhage or midline shift. There is diffuse age-related cerebra l atrophy and chronic small vessel ischemic change noted.
[2022-07-17 13:18] LABS: INR 0.9 (<1.2); Partial Thromboplastin Time 24.3 sec (22.0-30.0)
--- NOTE | 2022-07-17 13:37 | CT ---
EXAMINATION TYPE: CT angio head neck CT DLP: 559 mGycm, Automated exposure control for dose reduction was used. DATE OF EXAM: 07/17/2022 1:17 PM COMPARISON: CT brain same day1. CLINICAL INDICATION:Female, 57 years old with history of Neuro deficit, acute, stroke suspected, Lt s angelica weakness, Lt facial droop TECHNIQUE: Axially acquired helical CT angiogram of the head and neck was obtained with contrast. Axi al images are supplemented with 3D reconstructions [facility] NASCET criteria used. Contrast used:65 mL of Isovue 370 with IV Contrast, Oral contrast used: None. FINDINGS: CTA HEAD: No evidence of acute intracranial hemorrhage, mass effect, or midline shift. The ventricles, sulci, a nd cisterns are unremarkable. The visualized portions of the internal carotid arteries, middle cerebral arteries, anterior cerebral arteries, and posterior cerebral arteries are patent. Mild atherosclerosis of the intracranial porti on of the internal carotid arteries without hemodynamically significant stenosis. The basilar and vertebral arteries are patent. CTA NECK: Right Carotid System: The common carotid artery and external carotid artery are patent. The carotid bifurcation demonstrate s no evidence of hemodynamically significant stenosis. The remaining portions of the internal carotid artery demonstrate normal size without significant narrowing. Left Carotid System: The common carotid artery and external carotid artery are patent. The carotid bifurcation demonstrate s no evidence of hemodynamically significant stenosis. The remaining portions of the internal carotid artery demonstrate normal size without significant narrowing. Vertebral arteries are patent without evidence hemodynamically significant stenosis. There is a 4 vessel aortic arch. The origins of the great vessels are patent. No evidence of hemodyna mically significant stenosis. Left hypodense thyroid nodule measuring 6 mm. Left upper thyroid nodule measuring 11 mm. IMPRESSION: 1. No evidence of dissection of the cervical internal carotid arteries or vertebral arteries or any e vidence of significant stenosis at the carotid bifurcations. 2. No evidence of intracranial high-grade stenosis or intracranial aneurysm.
[2022-07-17 13:52] VITALS: BP 127/72; PULSE 90; RESP 18; TEMP 98.4
--- NOTE | 2022-07-17 14:03 | XR ---
EXAMINATION TYPE: XR chest 2V DATE OF EXAM: 07/17/2022 COMPARISON: NONE HISTORY: Shortness of breath TECHNIQUE: Frontal and lateral views of the chest are obtained. FINDINGS: Scattered senescent parenchymal changes noted. Hyperinflation compatible with COPD. No evidence for infiltrate. No evidence for atelectasis. Heart size is stable. Mediastinal structures are stable and grossly unremarkable. No evidence for hilar prominence. Degenerative changes dorsal spine. IMPRESSION: 1. No evidence for acute pulmonary disease.
[2022-07-17] MEDS ORDERED: ASPIRIN 325 MG TAB PO STA (14:13)
[2022-07-17] MEDS ORDERED: SODIUM CHLORIDE 0.9% 1,000 ML IV SCH (14:15)
--- NOTE | 2022-07-17 15:33 | P.CNNES ---
History of Present Illness Consult date: 07/17/22 Requesting physician: Uli Rehman Reason for Consult: cva History of Present Illness: This is a 57-year-old woman who presented emergency department on 07/17/2022 because of sensation heaviness of the left arm/leg and face. Onset of the symptoms is today around 11:30 AM. Which was an hour prior to our facility. She felt her left face, arm and leg were heavy with numbness on the left side. She said that for the past couple weeks she's been having intermittent headaches over the left frontal that feels like a hammer and stated was lasting 1-2 hours but initially lasting longer but the no headache for the last couple days. Denies phonophobia, nausea or vomiting. She denies photophobia. But last couple days no headaches. Patient has history of prior TIA's in the past (does not recall symptoms). Patient is on residue pravastatin 10 mg daily at bedtime. She stated she is not on antiplatelets and does not know why not she was not placed on it. She does smoke. Denies illicit drug use. Some of the workup during her hospital visit consisted of: CT of the head is reported as no acute intracranial hemorrhage or midline shift. There is diffuse age-related chewable atrophy and chronic small vessel ischemic changes noted. CT angiography of the head and neck is reported as no evidence of dissection of the cervical internal carotid arteries or vertebral arteries or any evidence of significant stenosis at the carotid bifurcation. No evidence of intracranial high-grade stenosis or intracranial aneurysm. EKG is reported as sinus rhythm. Possible left atrial enlargement. Borderline EKG. ED team activated stroke pager. They spoke with Dr. Delvalle. He felt no IV TPA because the risk outweighed the benefits. POC glucose is 135. Review of Systems Review of system: The 12 point system was reviewed and apparent positive and negative per HPI. Past Medical History Past Medical History: CVA/TIA, GERD/Reflux, Hyperlipidemia, Hypertension, Musculoskeletal Disorder, Osteoarthritis (OA), Thyroid Disorder Additional Past Medical History / Comment(s): Hx TIA'S, possible seizures long time ago. Hx "Severe concussion". Varicose veins. Hx "Arrythmia." DDD w/ ruptured discs back/neck. IBS. Pre-cancer cervix. Hx ulcer, hiatal hernia, thyroid nodules. Complains of being tired, weak, elevated liver count. Blood in urine/pain for a few months now. History of Any Multi-Drug Resistant Organisms: None Reported Past Surgical History: Breast Surgery, Cholecystectomy, Orthopedic Surgery, Tubal Ligation, Uterine Ablation Additional Past Surgical History / Comment(s): Surgery for twisted ureter, Left Elbow surgery, Left CTR, Left Rotator Cuff X2, Bilateral Breast Bx, Torn Left knee Meniscus, Deviated septum & sinus surgery, Pain procedures. Past Anesthesia/Blood Transfusion Reactions: Previous Problems w/ Anesthesia, Family History of Problems w/ Anesthesia, Motion Sickness Additional Past Anesthesia/Blood Transfusion Reaction / Comment(s): Claustrophobic, (Brother - has PONV) Hx after 1st pain clinic procedure had episode after getting home "felt like I was really high, could not walk, had to hold on to zhou"- lasted for hours. Past Psychological History: Anxiety, Depression, Panic Disorder, PTSD Smoking Status: Current every day smoker Past Alcohol Use History: None Reported Past Drug Use History: None Reported - Past Family History Father Family Medical History: Cancer, Coronary Artery Disease (CAD), CVA/TIA, Deep Vein Thrombosis (DVT) Additional Family Medical History / Comment(s): Skin Cancer; history of Alzheimer's disease, CAD, 4 vessel CABG, CVA. Mother History Unknown: Yes Additional Family Medical History / Comment(s): Mother is alive at age 83 with history of hypertension. Son(s) Additional Family Medical History / Comment(s): patient has 2 sons and one has Depression Daughter(s) Family Medical History: No Reported History Additional Family Medical History / Comment(s): Patient has one daughter with no major medical problems. Brother(s) Family Medical History: Cancer Additional Family Medical History / Comment(s): Sinus cancer w/ mets; patient has 5 brothers. One at age 27 from suicide. One has coronary artery disease status post 2 vessel CABG. Medications and Allergies Home Medications Medication Instructions Recorded Confirmed Type Metoprolol Succinate (ER) [Toprol 50 mg PO DAILY 11/06/17 07/17/22 History Xl] Esmond-3 Fatty Acids/Fish Oil [Fish 1 cap PO BID 10/19/18 07/17/22 History Oil 1,000 mg Softgel] Acetaminophen [Tylenol Arthritis] 650 mg PO Q6H PRN 01/11/21 07/17/22 History Carboxymethylcellulos/Glycerin 1 drop BOTH EYES BID PRN 01/11/21 07/17/22 Histor y [Refresh Relieva 0.5-0.9% Drop] Mv-Mn/Folic/Lutein/Herbal 293 1 tab PO DAILY 01/11/21 07/17/22 History [Alive Women's 50 Plus Vitamins] Omeprazole [PriLOSEC] 20 mg PO DAILY 01/11/21 07/17/22 History cycloSPORINE [Restasis] 1 applicator BOTH EYES BID 01/11/21 07/17/22 History Rosuvastatin Calcium 10 mg PO HS 11/20/21 07/17/22 History Azithromycin [Zithromax Z Pack] See Taper PO DIRECTED 07/17/22 07/17/22 History Baclofen 10 mg PO TID 07/17/22 07/17/22 History Erythromycin Ophth Oint [Romycin 1 applic BOTH EYES HS 07/17/22 07/17/22 History Ophth Oint] Fluticasone Nasal [place] [Flonase 1 spray EA NOSTRIL DAILY PRN 07/17/22 07/17/22 History Nasal [place]] Gabapentin [Neurontin] 300 mg PO HS 07/17/22 07/17/22 History Loratadine [Claritin] 10 mg PO DAILY 07/17/22 07/17/22 History lisinopriL [Zestril] 30 mg PO DAILY 07/17/22 07/17/22 History Allergies Allergy/AdvReac Type Severity Reaction Status Date / Time peanut Allergy Anaphylaxis Verified 07/17/22 14:36 Sulfa (Sulfonamide Allergy Vomiting Verified 07/17/22 14:36 Antibiotics) sumatriptan [From Imitrex] Allergy Anaphylaxis Verified 07/17/22 14:36 sumatriptan succinate Allergy Anaphylaxis Verified 07/17/22 14:36 [From Imitrex] tree nut [Nut] Allergy Anaphylaxis- Verified 07/17/22 14:36 ALL NUTS atorvastatin AdvReac insomnia Verified 07/17/22 14:36 Physical Examination - Vital Signs Vital Signs: Vital Signs Temp Pulse Resp BP Pulse Ox 07/17/22 13:52 98.4 F 90 18 127/72 97 07/17/22 13:31 86 16 138/77 96 07/17/22 13:22 86 16 151/85 96 07/17/22 13:05 98.3 F 101 H 18 163/85 99 07/17/22 12:26 97.7 F 91 18 160/84 98 Intake and Output 07/16/22 07/17/22 07/17/22 22:59 06:59 14:59 Other: Weight 80.739 kg GENERAL: The patient is lying in bed and is not in acute distress. CHEST: The heart rate is regular rate rhythm. No murmurs to auscultation. No carotid bruit bilaterally. LUNG: Clear to auscultation bilaterally no wheezing noted throughout. Not labored breathing. ABDOMEN/GI: Bowel sounds present in all 4 quadrants. No tenderness to palpation throughout. NEUROLOGICAL: Higher mental function: The patient is awake, alert, oriented to self, place and time. Patient is following commands. No aphasia and no neglect. Cranial nerves: The pupils are round, equal and reactive to light and accommodation. Visual cespedes are full to confrontation throughout. Extraocular movement is intact no nystagmus is noted. Facial sensation is normal to touch throughout. The facial strength is normal throughout. Hearing is normal bilaterally to hand rub. Tongue is midline and moved [id number] without any difficulty. No dysarthria is noted. Shoulder shrug is normal bilaterally. Motor: The strength is 5 over 5 throughout. Normal tone and bulk. Cerebellum: Normal finger to nose heel to zapata bilaterally. Sensation: Sensation is normal to touch throughout. Reflexes (right/left): 1+ throughout. Plantars are mute bilaterally. Results - Laboratory Findings CBC and BMP: 07/17/22 12:44 07/17/22 12:44 Abnormal Lab Findings: Abnormal Labs 07/17/22 07/17/22 07/17/22 12:33 12:44 12:44 WBC 14.4 H Lymphocytes # 6.6 H Glucose 134 H POC Glucose (mg/dL) 135 H Alkaline Phosphatase 129 H Assessment and Plan Assessment: Probable TIA with presentation of sensation and heaviness in the left arm, leg and face. Has been having headache for the past couple weeks but last couple days no headache. On examination no focality. History of TIAs Hypertension History of possible seizure Hyperlipidemia Tobacco use Plan: In the ED the patient was given aspirin 325 once and was started on aspirin 325 daily. I ordered MRI Brain w/ and w/o to rule out stroke and rule out any mass because of new onset headache for past couple weeks. If negative for mass, recommend to pursue with Plavix 75 mg daily (she was not on antiplatelets prior to this). Patient is ALLERGIC to Atorvastatin. She will try to have family member bring her home Rosuvastatin 10mg qhs if possible. Ordered TSH, hemoglobin A1c. Lipid panel and 2-D echo was ordered and is pending PT OT and [employer] are consulted Continue neuro checks On cardiac monitoring Patient was counseled on tobacco cessation. We'll defer the rest of the medical management to primary team For DVT prophylaxis I start the patient on subcu heparin 5000 units every 8 hours Thank you for the consultation. Dr. Hannah will start neurology service tomorrow A.M. Time with Patient: Greater than 30
[2022-07-17] MEDS ORDERED: HEPARIN SODIUM,PORCINE/PF 5,000 UNIT/0.5 ML SYRINGE SQ SCH (16:00)
--- NOTE | 2022-07-17 17:53 | CA ---
Transthoracic Echo Report Name: Gale Avelar Age: 57 Gender: F : 1965 Exam Date: 07/17/2022 14:44 Exam Location: [facility] Ht (in): 63 Wt (lb): 178 Ordering Physician: Uli Rehman DO Attending/Referring Phys: Senior Sourcing Manager Jocelin Quiroz RDCS Procedure CPT: Indications: Thrombus Cardiac Hx: Technical Quality: Fair Contrast 1: Total Dose (mL): Contrast 2: Total Dose (mL): MEASUREMENTS (Male / Female) Normal Values 2D ECHO LV Diastolic Diameter PLAX 3.9 cm 4.2 - 5.9 / 3.9 - 5.3 cm LV Systolic Diameter PLAX 2.7 cm IVS Diastolic Thickness 1.4 cm 0.6 - 1.0 / 0.6 - 0.9 cm LVPW Diastolic Thickness 1.1 cm 0.6 - 1.0 / 0.6 - 0.9 cm LV Relative Wall Thickness 0.6 RV Internal Dim ED PLAX 2.5 cm LA Volume 44.1 cm??? 18 - 58 / 22 - 52 cm??? M-MODE Aortic Root Diameter MM 2.2 cm LA Systolic Diameter MM 3.5 cm LA Ao Ratio MM 1.6 AV Cusp Separation MM 2.0 cm DOPPLER AV Peak Velocity 122.6 cm/s AV Peak Gradient 6.0 mmHg AV Mean Velocity 87.0 cm/s AV Mean Gradient 3.3 mmHg AV Velocity Time Integral 24.2 cm LVOT Peak Velocity 85.0 cm/s LVOT Peak Gradient 2.9 mmHg MV Area PHT 4.6 cm??? Mitral E Point Velocity 68.5 cm/s Mitral A Point Velocity 117.8 cm/s Mitral E to A Ratio 0.6 MV Deceleration Time 163.3 ms MV E' Velocity 4.6 cm/s Mitral E to MV E' Ratio 14.7 TR Peak Velocity 257.2 cm/s TR Peak Gradient 26.5 mmHg Right Ventricular Systolic Press 30.6 mmHg FINDINGS Left Ventricle Moderately increased left ventricular wall thickness. Normal left ventricular systolic function with no obvious regional wall motion abnormalities. Left ventricular ejection fraction is estimated at 55-60 %. Right Ventricle Normal right ventricular size and function. Right ventricular systolic pressure within normal limits. Right Atrium Normal right atrial size. Left Atrium Normal left atrial size. No evidence for an atrial septal defect. Mitral Valve Structurally normal mitral valve. Mitral valve thickened. Mitral annular calcification. Trace to mild mitral regurgitation. Aortic Valve No aortic valve stenosis or regurgitation. Tricuspid Valve Structurally normal tricuspid valve. Mild tricuspid regurgitation. Pulmonic Valve Trace pulmonic regurgitation. Pericardium No pericardial effusion. Aorta Normal size aortic root and proximal ascending aorta. CONCLUSIONS Moderately increased left ventricular wall thickness Left ventricular ejection fraction 55-60% Mild mitral annular calcification Trace to mild mitral regurgitation Mild tricuspid regurgitation RVSP 30 Previewed by: Dr. Marcos Powers DO (Electronically Signed) Final Date: 17 July 2022 17:52
--- NOTE | 2022-07-17 22:23 | HP ---
HISTORY AND PHYSICAL CHIEF COMPLAINTS: Left face and left arm numbness and weakness. HISTORY OF PRESENT ILLNESS: This is a 57-year-old woman with a past medical history of multiple medical problems including hypertension, hyperlipidemia, was noted to have left-sided facial numbness, weakness, and some heaviness. Left arm was also really heavy. The patient came to [facility] and initial stroke workup was negative, NIH was about 102. The patient was admitted for further evaluation. Neurology has been consulted. There is no history of any fever, rigors, or chills. PAST MEDICAL HISTORY: Reviewed include hypertension, hyperlipidemia. The rest of the history and rest of the chart is also reviewed. HOME MEDICATIONS: Reviewed include rosuvastatin, dose and rest of medications noted. ALLERGIES: Peanuts. FAMILY HISTORY: No family history of CAD, CVA, DVT and rest of the family history reviewed. SOCIAL HISTORY: Current smoking. No history of alcohol intake. REVIEW OF SYSTEMS: A 14-point review is negative as mentioned earlier. PHYSICAL EXAMINATION: VITAL SIGNS: Pulse 86, blood pressure 138/76, respirations 16. HEENT: Conjunctivae normal. NECK: No JVD. CARDIOVASCULAR: S1-S2. RESPIRATIONS: Clear to auscultation. ABDOMEN: Soft, nontender. LEGS: No edema. NERVOUS SYSTEM: Minimal left facial nerve weakness, likely . Minimal weakness on the left upper limb. SKIN: Otherwise skin no rash. JOINTS: No active deforming arthropathy. LABS: Reviewed. ASSESSMENT: 1. Possible acute transient ischemic attack versus cerebrovascular accident involving the right hemisphere causing left-sided weakness and symptoms. 2. Hypertension. 3. Hyperlipidemia. 4. Degenerative joint disease. 5. Multiple medical issues. RECOMMENDATIONS AND DISCUSSION: This 57-year-old woman presented with multiple medical issues, we will monitor the patient closely. Will initiate anti-hyperlipidemic agents as well as aspirin. Resume the home medications once they are confirmed. Neurology consultation, neuro checks and complete neurovascular workup. Prognosis guarded because of multiple complex medical issues. Further recommendations to follow. MMODL / IJN: [id number] /
[2022-07-18] MEDS ORDERED: ASPIRIN 325 MG TAB PO SCH (09:00)
== END 2022-07-17 18:20 | disposition left against medical advice (07) | DRG 69 ==
LOC: EC 12:24 → 3SCARD 14:13
PROVIDERS: ADMIT Hospitalist; ATTEND Hospitalist
DX: G45.9 Transient cerebral ischemic attack, unspecified (principal); G81.94 Hemiplegia, unspecified affecting left nondominant side; E78.5 Hyperlipidemia, unspecified; F17.210 Nicotine dependence, cigarettes, uncomplicated; Z53.29 Procedure and treatment not carried out because of patient's decision for other reasons; F40.240 Claustrophobia; G31.89 Other specified degenerative diseases of nervous system; K21.9 Gastro-esophageal reflux disease without esophagitis; F43.10 Post-traumatic stress disorder, unspecified; F32.A Depression, unspecified; F41.9 Anxiety disorder, unspecified; K58.9 Irritable bowel syndrome, unspecified; F41.0 Panic disorder [episodic paroxysmal anxiety]; I10 Essential (primary) hypertension; M19.90 Unspecified osteoarthritis, unspecified site; Z79.899 Other long term (current) drug therapy; Z86.73 Personal history of transient ischemic attack (TIA), and cerebral infarction without residual deficits; Z91.010 Allergy to peanuts; Z88.2 Allergy status to sulfonamides; Z87.19 Personal history of other diseases of the digestive system; Z90.49 Acquired absence of other specified parts of digestive tract; Z98.51 Tubal ligation status; Z91.018 Allergy to other foods; Z88.8 Allergy status to other drugs, medicaments and biological substances
CPT/HCPCS: 36415; 70450; 70496; 70498; 71046; 80053; 82607; 82746; 83036; 84443; 85025; 85610; 85730; 93005; 93306; 96360; 99285

== ENCOUNTER → 2022-08-14 | Outpatient (CLI) | payer MEDICARE, OTHER ==
--- NOTE | 2022-08-15 08:51 | MR ---
EXAMINATION TYPE: MR brain wo/w con DATE OF EXAM: 08/14/2022 3:06 PM COMPARISON: 08/04/2019 HISTORY: Left sided weakness, slurred speech. CONTRAST: Patient received 8 mL intravenous Gadavist gadolinium contrast. Multiplanar and multispin-echo imaging of the brain was performed . Pre and post contrast enhanced i mages are obtained. The ventricles, basal cisterns and sulci overlying the cerebral convexities are mildly enlarged. There is evidence of mild periventricular white matter ischemic demyelination. Remote deep white matter insults are also noted. No acute edema is seen on diffusion weighted imaging. There is no evidence for midline shift or mass effect. Acute intracranial hemorrhage or extra-axial collection is not evident. No enhancing lesions are seen. The paranasal sinuses and mastoid air cells are well-aerated. IMPRESSION: Age-related atrophic and chronic small vessel ischemic change. No acute intracranial process at this time. No enhancing lesions are seen.
== END | disposition home or self-care (01) ==
LOC: RADMRIMAIN 13:57
PROVIDERS: ATTEND Family Medicine
DX: G31.1 Senile degeneration of brain, not elsewhere classified (principal); I67.82 Cerebral ischemia; G45.9 Transient cerebral ischemic attack, unspecified
CPT/HCPCS: 70553; A9585

== ENCOUNTER 2023-07-04 10:22 | Emergency (ER) | payer MEDICARE, OTHER ==
[2023-07-04 10:27] VITALS: TEMP 97.4
[2023-07-04] MEDS ORDERED: HYDROmorphone 0.5 MG/0.5 ML SYRINGE IVP STA ×2 (10:41→13:23)
[2023-07-04 10:59] LABS: Basophils # (A) 0.1 k/uL (0-0.2); Basophils % (A) 1 %; Eosinophils # (A) 0.2 k/uL (0-0.7); Eosinophils % (A) 2 %; HCT 41.2 % (34.0-46.0); HGB 13.7 gm/dL (11.4-16.0); Lymphocytes # (A) 3.2 k/uL (1.0-4.8); Lymphocytes % (A) 37 %; MCH 31.3 pg (25.0-35.0); MCHC 33.2 g/dL (31.0-37.0); MCV 94.3 fL (80.0-100.0); Mean Platelet Volume 8.1; Monocytes # (A) 0.4 k/uL (0-1.0); Monocytes % (A) 4 %; Neutrophils # (A) 4.6 k/uL (1.3-7.7); Neutrophils % (A) 55 %; Platelet Count 321 k/uL (150-450); RBC 4.37 m/uL (3.80-5.40); RDW 12.1 % (11.5-15.5); WBC 8.5 k/uL (3.8-10.6)
--- NOTE | 2023-07-04 11:04 | XR ---
EXAMINATION TYPE: XR chest 1V portable DATE OF EXAM: 07/04/2023 Comparison: 07/17/2022 Clinical History: 57-year-old female with pain after trauma Findings: Heart normal size. Aorta and pulmonary vasculature within normal limits. Mild interstitial prominence has a chronic appearance. No consolidation or pleural effusion. Suture anchors left humeral head fro m prior cuff repair. Suspect post surgical widening left AC joint. Impression: Chronic appearing changes. No definite acute process.
[2023-07-04 11:12] LABS: ALT 21 U/L (4-34); AST 32 U/L (14-36); African American GFR (CKD) >90 (>60 ml/min/1.73 sqM); Albumin 4.7 g/dL (3.5-5.0); Alcohol <10 mg/dL; Alkaline Phosphatase 98 U/L (38-126); Anion Gap 14 mmol/L; Blood Urea Nitrogen 12 mg/dL (7-17); Calcium 9.6 mg/dL (8.4-10.2); Carbon Dioxide 24 mmol/L (22-30); Chloride 105 mmol/L (98-107); Glucose 80 mg/dL (74-99); Non-African American GFR(CKD) >90 (>60 ml/min/1.73 sqM); Potassium 3.6 mmol/L (3.5-5.1); Sodium 143 mmol/L (137-145); Total Bilirubin 0.4 mg/dL (0.2-1.3); Total Protein 7.8 g/dL (6.3-8.2)
[2023-07-04 11:14] LABS: INR 0.8 (<1.2); Partial Thromboplastin Time 24.8 sec (22.0-30.0); Prothrombin Time 9.6 sec (10.0-12.5)
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
[2023-07-04 11:16] VITALS: RESP 18
[2023-07-04 11:40] LABS: Amphetamine Screen,Urine Not Detected (NotDetected); Benzodiazepines Screen,Urine Not Detected (NotDetected); Cocaine Screen,Urine Not Detected (NotDetected); Methadone Screen, Urine Not Detected (NotDetected); Opiate Screen,Urine Not Detected (NotDetected); Phencyclidine Screen,Urine Not Detected (NotDetected); Tricyclic Antidepressant,Urine Not Detected (NotDetected); Urn Cannabinoid Scrn Not Detected (NotDetected)
[2023-07-04 11:41] LABS: Barbiturate Screen,Urine Not Detected (NotDetected); Oxycodone Screen, Urine Not Detected (NotDetected)
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
[2023-07-04] MEDS ORDERED: KETOROLAC 15 MG/ML 1 ML VIAL IVP STA (12:09)
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
[2023-07-04] MEDS ORDERED: ACET/COD 300 MG/30 MG STARTER PACK 6 TAB BTL PO STA (14:28)
[2023-07-04 14:51] VITALS: BP 163/91; PULSE 71
== END 2023-07-04 14:34 | disposition home or self-care (01) ==
LOC: EC 10:22
DX: S46.911A Strain of unspecified muscle, fascia and tendon at shoulder and upper arm level, right arm, initial encounter (principal); S20.211A Contusion of right front wall of thorax, initial encounter; E78.5 Hyperlipidemia, unspecified; I10 Essential (primary) hypertension; J43.9 Emphysema, unspecified; K21.9 Gastro-esophageal reflux disease without esophagitis; F17.200 Nicotine dependence, unspecified, uncomplicated; Z86.59 Personal history of other mental and behavioral disorders; Z79.899 Other long term (current) drug therapy; Z88.2 Allergy status to sulfonamides; Z91.010 Allergy to peanuts; Z91.018 Allergy to other foods; Z88.8 Allergy status to other drugs, medicaments and biological substances; X58.XXXA Exposure to other specified factors, initial encounter
CPT/HCPCS: 36415; 93005; 86900; 86901; 80053; 84484; 85025; 85610; 85730; 86850; 80306; 72050; 73030; 71045; 71260; 74177; 99284; 96374; 96375; 96376; G0480; J1885; J1170; Q9967; 80320

== ENCOUNTER → 2023-07-15 | Outpatient (CLI) | payer MEDICARE, OTHER ==
[2023-07-15 18:13] LABS: Basophils # (A) 0.07 X 10*3/uL (0.00-0.10); Basophils % (A) 0.7 %; Eosinophils # (A) 0.18 X 10*3/uL (0.04-0.35); Eosinophils % (A) 1.9 %; HCT 42.3 % (37.2-46.3); HGB 13.8 g/dL (12.0-15.0); Lymphocytes # (A) 3.24 X 10*3/uL (0.90-5.00); Lymphocytes % (A) 34.6 %; MCH 31.2 pg (27.0-32.0); MCHC 32.6 g/dL (32.0-37.0); MCV 95.5 FL (80.0-97.0); Mean Platelet Volume 10.4 FL (9.5-12.2); Monocytes # (A) 0.57 X 10*3/uL (0.20-1.00); Monocytes % (A) 6.1 %; NRBC Per 100 WBC 0 X 10*3/uL (0.00-0.01); Neutrophils # (A) 5.27 X 10*3/uL (1.80-7.70); Neutrophils % (A) 56.4 %; Platelet Count 356 X 10*3/uL (140-440); RBC 4.43 X 10*6/uL (4.10-5.20); RDW 12.3 % (11.5-14.5); WBC 9.36 X 10*3/uL (4.50-10.00)
[2023-07-15 18:39] LABS: BUN/Creat Ratio 20.67 Ratio (12.00-20.00); Blood Urea Nitrogen 12.4 mg/dL (9.0-27.0); Chol/HDL Ratio 3.43 Ratio; Glucose 80 mg/dL (70-110); LDL Cholesterol,Calculated 71.7 mg/dL (0.0-131.0)
[2023-07-15 18:40] LABS: ALT 20 U/L (8-44); AST 23 U/L (13-35); Albumin 4.7 g/dL (3.8-4.9); Albumin/Globulin Ratio 1.88 Ratio (1.60-3.17); Alkaline Phosphatase 103 U/L (41-126); Bilirubin, Conjugated <0.20 mg/dL (0.20-0.40); Bilirubin,Unconjugated >0.10 mg/dL (0.20-1.00); Chloride 105 mmol/L (96-109); Globulin 2.5 g/dL (1.6-3.3); Potassium 4.2 mmol/L (3.5-5.5); Sodium 142 mmol/L (135-145); T4, Free (Free Thyroxine) 1.01 ng/dL (0.80-1.80); Total Bilirubin 0.3 mg/dL (0.3-1.2); Total Protein 7.2 g/dL (6.2-8.2)
== END | disposition home or self-care (01) ==
LOC: LABWHC1 09:47
PROVIDERS: ATTEND Family Medicine
DX: Z00.01 Encounter for general adult medical examination with abnormal findings (principal); I10 Essential (primary) hypertension
CPT/HCPCS: 36415; 80048; 80061; 80076; 84439; 84443; 85025

== ENCOUNTER → 2023-07-15 | Outpatient (CLI) | payer MEDICARE, OTHER ==
--- NOTE | 2023-07-15 10:31 | MM ---
Reason for Exam: Clinical finding. Last mammogram was performed 1 year(s) and 7 month(s) ago. Patient History: Menarche at age 12. First Full-Term at age 20. Postmenopausal. Other cancer, age 25. Excisional Biopsy on the Left side. Cyst Aspiration on the Left side. Cyst Aspiration on the Left side. Cyst Aspiration on the Left side. Cyst Aspiration on the Left side. Cyst Aspiration on the Left side. 11/01/2016, Benign Core Biopsy on the left side. 11/01/2016, Benign Core Biopsy on the right side. 11/01/2016, Benign Cyst Aspiration on the right side. 04/19/2011, Benign Core Biopsy on the right side. 12/07/2004, Benign Ultrasound-Guided Cyst Aspiration on the left side. 12/07/2004, Benign Ultrasound-Guided Cyst Aspiration on the right side. 12/07/2004, Benign Cyst Aspiration on the right side. 12/07/2004, Benign Ultrasound-Guided Cyst Aspiration on the right side. 12/07/2004, Benign Cyst Aspiration on the left side. 05/17/2004, Benign Ultrasound-Guided Cyst Aspiration on the right side. 05/17/2004, Benign Ultrasound-Guided Cyst Aspiration on the right side. 10/22/2001, Benign Excisional Biopsy on the left side. Paternal grandmother had breast cancer. Risk Values: Krystal 5 year model risk: 1.8%. NCI Lifetime model risk: 10.2%. Tissue Density: The breast tissue is heterogeneously dense. This may lower the sensitivity of mammography. Findings: Analyzed By CAD. Bilateral biopsy clips. No new suspicious masses, calcifications or distortions. Overall Assessment: Benign, BI-RAD 2 Management: Screening Mammogram of both breasts in 1 year. Results were given to the patient verbally at the time of exam. Patient should continue monthly self-breast exams. A clinical breast exam by your physician is recommended on an annual basis. This exam should not preclude additional follow-up of suspicious palpable abnormalities. Note on Krystal scores and lifetime risk: 1. A Krystal score greater than 3% is considered moderate risk. If this is the case, consider specialist referral to assess eligibility for a risk reducing agent. 2. If overall lifetime risk for the development of breast cancer is 20% or higher, the patient may qualify for future screening with alternating mammogram and breast MRI. Electronically signed and approved by: Taiwo Hector DO
== END | disposition home or self-care (01) ==
LOC: RADMAMWWP 09:41
PROVIDERS: ATTEND Family Medicine
DX: R92.333 Mammographic heterogeneous density, bilateral breasts (principal); Z80.3 Family history of malignant neoplasm of breast; Z78.0 Asymptomatic menopausal state; R92.8 Other abnormal and inconclusive findings on diagnostic imaging of breast
CPT/HCPCS: 77066; G0279; 77062

== ENCOUNTER → 2023-08-27 | Outpatient (CLI) | payer MEDICARE, OTHER ==
--- NOTE | 2023-08-28 17:34 | CT ---
EXAMINATION TYPE: CT abdomen pelvis w con DATE OF EXAM: 08/27/2023 HISTORY: abdominal pain, change in bowel movements hx of IBS. Left lower quadrant pain per order CT DLP: 687.70mGycm Automated Exposure Control for Dose Reduction was Utilized. CONTRAST: CT scan of the abdomen and pelvis is performed with IV Contrast, patient injected with 100 mL of Isov ue 300. COMPARISON: Prior CT July 04, 2023 FINDINGS: LUNG BASES: No significant abnormality is appreciated. LIVER/GB: Cholecystectomy clips are redemonstrated. PANCREAS: No significant abnormality is seen. SPLEEN: No significant abnormality is seen. ADRENALS: No significant abnormality is seen. KIDNEYS: Stable small round 1.5 cm thin-walled cyst lower pole right kidney. BOWEL: Oral contrast reaches level of the hepatic flexure. No abnormal small or large bowel dilatatio n is seen. UTERUS/ADNEXA: No gross abnormality seen. LYMPH NODES: No greater than 1cm abdominal or pelvic lymph nodes are appreciated. OSSEOUS STRUCTURES: No significant abnormality is seen. OTHER: Wtgd-[id number] peripheral calcified plaque of the infrarenal abdominal aorta is redemonstrat ed. IMPRESSION: No significant new or acute finding is seen to account for patient's clinical symptoms of left lower quadrant abdominal pain.
== END | disposition home or self-care (01) ==
LOC: RADCTMAIN 13:11
PROVIDERS: ATTEND Family Medicine
DX: R10.32 Left lower quadrant pain (principal); R19.4 Change in bowel habit; Z87.19 Personal history of other diseases of the digestive system
CPT/HCPCS: 74177; Q9967

== ENCOUNTER → 2024-10-07 | Outpatient (CLI) | payer MEDICARE, OTHER ==
--- NOTE | 2024-10-07 16:07 | XR ---
Chest, 2 view. HISTORY: Presurgical COMPARISON: 07/04/2023 TECHNIQUE: PA and lateral views the chest are obtained. FINDINGS: The lungs are clear and there is no consolidative or interstitial opacity. There is no pleural effusion or pneumothorax. The heart, pulmonary vasculature, mediastinum and rakel appear normal. There are postsurgical changes of left rotator cuff repair IMPRESSION: No acute cardiopulmonary disease. [facility], , 10/07/2024 4:05 PM
== END | disposition home or self-care (01) ==
LOC: LABPAT 15:39
PROVIDERS: ATTEND Orthopaedic Surgery Orthopaedic Surgery of the Spine
DX: Z53.9 Procedure and treatment not carried out, unspecified reason (principal)
CPT/HCPCS: 71046

== ENCOUNTER → 2024-10-25 | Outpatient (CLI) | payer OTHER, MEDICARE | END | disposition home or self-care (01) | LOC: LABWHC1 07:43 | PROVIDERS: ATTEND Internal Medicine | DX: Z01.812 Encounter for preprocedural laboratory examination (principal); Z22.322 Carrier or suspected carrier of Methicillin resistant Staphylococcus aureus; M48.02 Spinal stenosis, cervical region | CPT/HCPCS: 86850; 86900; 86901 ==

== ENCOUNTER 2024-11-03 05:45 | Day surgery (SDC) | payer MEDICARE, OTHER ==
[2024-10-29 14:53] VITALS: BMI 29.2
[2024-11-03] MEDS: IV FLUID CONTINUATION 1,000 ML IV ONE ×2 (06:27→06:59)
[2024-11-03] MEDS: ONDANSETRON 4 MG/2 ML VIAL IVP ONE (06:41)
[2024-11-03] MEDS: LACTATED RINGERS 1,000 ML IV SCH (06:41)
[2024-11-03] MEDS: DEXAMETHASONE SOD PHOSPHATE 4 MG/ML 1 ML VIAL IV ONE (06:42)
[2024-11-03] MEDS ORDERED: ROCURONIUM 10 MG/ML (5 ML VIAL) IV ONE (07:21)
[2024-11-03] MEDS ORDERED: PROPOFOL 10 MG/ML 20 ML VIAL IV ONE (07:21)
[2024-11-03] MEDS ORDERED: NEOSTIGMINE 1 MG/ML 10 ML VIAL ONE (07:21)
[2024-11-03] MEDS ORDERED: LIDOCAINE 1% INJ 10MG/ML (20 ML MDV) ONE (07:21)
[2024-11-03] MEDS ORDERED: fentaNYL (PF) 50 MCG/ML 2 ML AMP ONE (07:21)
[2024-11-03] MEDS ORDERED: PHENYLEPHRINE-0.9% NACL SYG 1,000 MCG/10 ML SYRINGE ONE (07:21)
[2024-11-03] MEDS ORDERED: MIDAZOLAM 2 MG/2 ML VIAL ONE (07:21)
[2024-11-03] MEDS ORDERED: GLYCOPYRROLATE 0.2 MG/ML 2 ML VIAL ONE (07:21)
[2024-11-03] MEDS ORDERED: HYDROmorphone (PF) 1 MG/ML ONE (07:21)
[2024-11-03] MEDS ORDERED: SUCCINYLCHOLINE CHLORIDE 200 MG/10 ML VIAL IV ONE (07:21)
[2024-11-03] MEDS: ceFAZolin 1,000 MG in SODIUM CHLORIDE 0.9% IRRIGATIO 1,000 ML IRRIGATION PRN (07:53)
[2024-11-03] MEDS: BUPIVACAINE (PF) 0.5% 30 ML VIAL SQ ONE (07:53)
[2024-11-03] MEDS: LIDOCAINE 2%-EPI 1:100,000 20 ML VIAL SQ ONE (07:53)
[2024-11-03] MEDS: THROMBIN (BOVINE) 5,000 UNIT VIAL TOPICAL ONE (07:53)
--- NOTE | 2024-11-03 08:39 | XR ---
EXAMINATION TYPE: XR cervical spine 1V DATE OF EXAM: 11/03/2024 8:25 AM COMPARISON: 07/04/2023. CLINICAL INDICATION: Female, 59 years old with history of NEEDLE PLACEMENT; PHH, pain TECHNIQUE: XR cervical spine 1V, (1-2) views of the cervical spine FINDINGS: Endotracheal tube in place. Instrument at the C6-C7 disc space. Severe degeneration changes of the sp ine. IMPRESSION: Surgical instrument located at the C6-C7 disc space. [facility], , 11/03/2024 8:36 AM
[2024-11-03] MEDS ORDERED: BENZOCAINE/MENTHOL LOZENG 1 EACH LOZENGE MUCOUS MEM PRN (09:18)
[2024-11-03] MEDS ORDERED: HYDROcodone/APAP 5-325MG 1 EACH TAB PO PRN (09:18)
[2024-11-03] MEDS ORDERED: ACETAMINOPHEN TAB 325 MG TAB PO PRN (09:19)
[2024-11-03] MEDS ORDERED: FLUTICASONE NASAL 50MCG/SPRAY 16GM BTL EA NOSTRIL PRN (09:20)
[2024-11-03] MEDS ORDERED: ACETAMINOPHEN TAB 500 MG TAB PO PRN (09:20)
[2024-11-03] MEDS ORDERED: ARTIFICIAL TEARS-HYPROMELLOSE DROPS 15 ML BTL BOTH EYES PRN (09:20)
--- NOTE | 2024-11-03 09:25 | P.OP ---
Date of Procedure: 11/03/24 Preoperative Diagnosis: Spinal stenosis C5-6 C6-7, herniated nucleus pulposus C5-6 C6-7, degenerative disc disease, neck pain, upper extremity radiculopathy Postoperative Diagnosis: Same Anesthesia: GETA Pathology: none sent Condition: stable Disposition: PACU Description of Procedure: BRIEF OPERATIVE NOTE Preoperative Diagnosis:Spinal stenosis C5-6 C6-7, herniated nucleus pulposus C5- 6 C6-7, degenerative disc disease, neck pain, upper extremity radiculopathy Postoperative Diagnosis:Spinal stenosis C5-6 C6-7, herniated nucleus pulposus C5-6 C6-7, degenerative disc disease, neck pain, upper extremity radiculopathy Procedure: Anterior cervical decompression with discectomy and fusion C5-6 C6-7 Placement of interbody graft C5-6 C6-7 Application of anterior cervical plate C5-6 7 Surgeon: Dr. Chua Integrity Specialist: Juan POPE who is present throughout the entire the case persistence during positioning, dissection, exposure, visualization, and all crucial elements of the case as well as closure. Anesthesia: General anesthesia Estimated blood loss: Approximately 150 cc Complications: None apparent Components implanted: K2M [employer]ot [place] anterior cervical plate system with screws and of Vikos interbody allograft bone graft with 1 cc of DBX bone putty Disposition: To recovery room in good stable condition. OPERATIVE INDICATIONS The patient has had long-standing issues in their neck and upper extremities. She been having worsening of her symptoms over the past year particularly in the past several months. She is having issues in her upper extremities particular on the right side. She has not have evidence of significant stenosis with degeneration and disc herniation C5-6 C6-7 which correlated well with her neck and upper extremity symptoms. The patient has been through conservative treatment. We discussed various treatment options including surgery, and the patient wishes to proceed with surgery We discussed the risk, patient's alternatives and benefits of surgery including but not limited to, risk of bleeding risk of infection, risk of need for further surgery, risk of decreased, loss of motion, muscle function, malunion nonunion, hardware failure, nerve damage, paralysis, heart attack, and . OPERATIVE SUMMARY After discussing all the risks, patient alternatives and benefits at length, the patient elected to proceed with surgical intervention, signed informed consent, and presented for their procedure. The patient was seen and examined in the preoperative holding area and the surgical site was marked. The patient was given antibiotics and brought to the operating room. The patient was positioned on the operating room table in a supine position being careful to pad any bony prominences and pressure points. The patient was sedated and intubated by anesthesia in standard fashion. Once the airway and C- spine were stabilized the patient's arms were padded and tucked at her side, with her shoulders gently taped. The head was placed in a donut pad with the neck in good neutral alignment and position. We were careful to maintain the patient's cervical spine and good neutral alignment and position throughout. The patient was prepped and draped in a normal standard fashion. An appropriate timeout and keystone protocol performed. We were able to proceed with the surgery. The local wound area was infiltrated with local anesthetic. An incision was made transversely approximately 2-1/2 cm over the appropriate levels at C6. Dissection was taken down subcutaneously to the level of the platysma which was split in line with its fibers. Dissection was taken with a carotid approach, with the trachea and esophagus medial and the carotid sheath laterally. We dissected down to the anterior surface of the vertebral bodies at C5-6 and 7. Intraoperative x-ray was taken which showed a marker at the appropriate level at C6-7. With the appropriate level positively confirmed, we were able to proceed with discectomy at the appropriate levels. All of the operative levels were exposed appropriately. The patient had all their twitches back, and there was no evidence of recurrent laryngeal issue. The wound was copiously irrigated and suctioned dry as had been done periodically throughout the case. At the appropriate level/levels, starting at C6-7 and then moving to C5-6, I established an annulotomy with an 11 blade scalpel. A discectomy was performed with a combination of pituitary rongeurs, curettes, a high-speed bur, and Kerrison rongeurs. The posterior longitudinal ligament was taken down as were any posterior osteophytes. This gave good central and bilateral foraminal decompression. There is no evidence of any dural tear or leak. The endplates were prepared with a high-speed bur. With the endplates in good parallel position, I was able to size for the appropriate size interbody graft. The wound was irrigated and suctioned dry the graft was prepared and malleted into position. It had good alignment and position with the anterior surface flush with the anterior surface of the vertebral bodies. This was done similarly the appropriate levels first at C6-7 and then at C5-6. With the grafts intact, I was able to measure and contour and appropriate sized plate. I had to shear down the anterior osteophytes for appropriate plate placement. The plate was positioned at the midline over the appropriate levels at 5 6 and 7. Screw holes were established with a hand drill and drill guide. Screws were placed in good alignment and position with excellent bony purchase. They were seated under the locking device. The construct was checked and found to be stable. Intraoperative x-ray was taken which showed good alignment and position of the implants at the appropriate levels. There was no evidence of any dural tear or leak. Good hemostasis was maintained. The wound was copiously irrigated and suctioned dry as had been done periodically throughout the case. The platysma was closed with absorbable suture. The subcutaneous tissue was closed. The subcuticular tissue was closed with absorbable suture. The wound was cleaned and dried and dressed appropriately. A soft cervical collar was placed appropriately. The patient was woken up by anesthesia, extubated, transferred back gently to their hospital bed and brought to the recovery room in good stable condition. The patient will be admitted to the hospital for appropriate postoperative care, medical management and monitoring. We will continue to follow them closely about the postoperative course.
--- NOTE | 2024-11-03 09:26 | XR ---
EXAMINATION TYPE: XR cervical spine 1V DATE OF EXAM: 11/03/2024 9:11 AM COMPARISON: 11/03/2024 CLINICAL INDICATION: Female, 59 years old with history of Hardware placement; PHH, pain TECHNIQUE: XR cervical spine 1V, (1-2) views of the cervical spine FINDINGS: Interval C5 C6 C7 fixation hardware placed. There is intact. Degeneration changes of the spine. Endotracheal tube present. IMPRESSION: Fixation hardware at C5-C6 and C7 nondisplaced. [facility], , 11/03/2024 9:24 AM
[2024-11-03] MEDS: HYDROmorphone 0.5 MG/0.5 ML SYRINGE IVP PRN ×2 (09:37→23:49)
[2024-11-03] MEDS: ONDANSETRON 4 MG/2 ML VIAL IVP PRN (11:04)
[2024-11-03] MEDS: SODIUM CHLORIDE 0.9% 1,000 ML IV SCH (11:13)
[2024-11-03] MEDS ORDERED: ALPRAZolam 0.25 MG TAB PO PRN (13:45)
[2024-11-03] MEDS: CYCLOBENZAPRINE 10 MG TAB PO PRN (14:56)
[2024-11-03] MEDS: BACLOFEN 10 MG TAB PO SCH (15:52)
[2024-11-03] MEDS: METOCLOPRAMIDE 5 MG/ML 2 ML VIAL IVP PRN (19:01)
[2024-11-03] MEDS: cloNIDine HCL 0.1 MG TAB PO SCH (20:13)
[2024-11-03] MEDS: GABAPENTIN 300 MG CAP PO SCH (20:14)
[2024-11-03] MEDS: ATORVASTATIN 20 MG TAB PO SCH (20:14)
[2024-11-03] MEDS: ERYTHROMYCIN 5 MG/GM OPHTH OINT 3.5 GM TUBE BOTH EYES SCH (21:27)
[2024-11-03] MEDS: cycloSPORINE 0.05% OPHTH 0.4 ML DROPERETTE BOTH EYES SCH (21:27)
--- NOTE | 2024-11-03 22:54 | P.CONS ---
History of Present Illness - Reason for Consult Consult date: 11/03/24 Medical management Requesting physician: Chevy Chua - Chief Complaint Status post ACDF C5-C6 C6 and C7 - History of Present Illness HISTORY OF PRESENT ILLNESS: This is a 59-year-old female with a previous medical history significant for hypertension and hypertensive cardiovascular disease, mixed hyperlipidemia, history of TIA, history of carpal tunnel syndrome, history of cholelithiasis, history of degenerative disc disease of the lumbar spine as well as cervical spine, history of posttraumatic stress disorder, anxiety disorder depressive disorder, patient underwent anterior cervical discectomy with fusion of C5-C6 and C6 and C7 that was done successfully by Dr. Diaz and we were asked to see the patient for medical management patient apparently has had a panic attack after she woke up from anesthesia and she was feeling somewhat claustrophobic, requires 2 people to put her down, she was quite anxious and she stated that her posttraumatic stress disorder affected her patient was started back on her pain management, she was also started on Xanax 0.25 mg orally twice every day, she was evaluated the bedside and she was doing fine. REVIEW OF SYSTEMS: Constitutional: No documented fever, no chills, no night sweats. No weight change. No weakness, fatigue or lethargy. No daytime sleepiness. EENT: No headache. No blurred vision or double vision, no loss of vision. No loss of Hearing, no ringing in the ears, no dizziness. No nasal drainage or congestion. No epistaxis. No sore throat. Lungs: No shortness of breath, no cough, no sputum production. No wheezing. Reports dyspnea with activity. Cardiovascular: No chest pain, no lower extremity edema. No palpitations. No paroxysmal nocturnal dyspnea. No orthopnea. No lightheadedness or dizziness. No syncopal episodes. Abdominal: Reports no abdominal pain. No nausea, vomiting. No diarrhea. No constipation. No bloody or tarry stools reports loss of appetite. Genitourinary: No dysuria, increased frequency, urgency. No urinary retention. Musculoskeletal: No myalgias. No muscle weakness, no gait dysfunction, no frequent falls. No back pain. positive for neck pain. Integumentary: Neck wound is covered, no lesions. No rash or pruritus. No unusual bruising. No change in hair or nails. Neurologic: No aphasia. No facial droop. No change in mentation. No head injury. No headache. No paralysis. No paresthesia. Psychiatric: positive for depression. positive for anxiety. No mood swings. Endocrine: No abnormal blood sugars. No weight change. PAST MEDICAL HISTORY: Hypertension and hypertensive cardiovascular disease. Mixed hyperlipidemia. GERD. TIA. Carpal tunnel syndrome. Tennis elbow. Degenerative disc disease of the cervical spine as well as lumbar spine. Posttraumatic stress disorder. Anxiety. Depression. PAST SURGICAL HISTORY: Left knee meniscal repair. Left carpal tunnel release. Left elbow surgery. Left knee surgical repair x 2 Cholecystectomy. Multiple breast biopsy Tubal ligation NovaSure ablation Cervical ablation Sinuplasty Thyroid biopsy Colonoscopy 2020 Cataract surgery 225 SOCIAL HISTORY: Smoked about half a pack every day and she quit in August 2024, she denies any alcohol ingestion, no drug use or abuse. FAMILY HISTORY: Father at the age of 85 from dementia, he also had history of coronary artery disease status post CABG hypertension and skin cancer mother is alive 90-year-old with hypertension patient has 5 brothers 2 alive with bone deformities and tumors 3 were 2 from suicide and 1 from sinus cancer patient has 2 sons living 1 with cholesteatoma and 1 with thoracic outlet syndrome patient has 1 daughter with precervical cancer as well as lap kp. PHYSICAL EXAMINATION: General: 59-year-old female examined in bed in no distress. HEENT: Head is atraumatic, normocephalic, pupils were equal round reactive to light and recommendation, extraocular muscle movement were intact, sclera nonicteric, conjunctivae were pale, mucous membranes of the mouth are somewhat dry. Neck: Supple, no JVP, normal carotid upstroke bilaterally, no lymphadenopathy. Soft cervical collar. Chest: Decreased breath sounds at the bases, few rhonchi, no expiratory wheezes, no chest wall tenderness, no intercostal retractions. Heart: First heart sound is normal, second heart sounds normal Abdomen: Soft, nontender, nondistended, positive bowel sounds. Extremities: There is no edema no calf tenderness DP +2 bilaterally. Neurologic examination: Patient is awake alert and oriented x3, cranial nerves II-12 appear grossly intact, muscle power were 5 out of 5 in upper extremities and 5 out of 5 in bilateral lower extremities, deep tendon reflexes normal bilaterally. ASSESSMENT AND PLAN: 1. Postoperative day #0 status post ACDF of C5-C6 and C6 and C7. Continue incentive spirometer to reduce the incidence atelectasis and healthcare associated pneumonia, continue current pain management as outlined by spine surgery, early ambulation, physical therapy evaluation in the next 24 hours. 2. Hypertension and hypertensive cardiovascular disease. Continue patient on metoprolol ER 50 mg once every day as well as lisinopril 30 mg once every day monitor the patient blood pressure very closely. 3. Mixed hyperlipidemia. Continue patient on atorvastatin 20 mg orally once every day. 4. Gastroesophageal flux disease please continue patient on Protonix 40 mg once every day. 5. Posttraumatic stress disorder/anxiety continue patient on Xanax 0.25 mg orally twice every day as needed, continue with clonidine 0.1 mg orally at bedtime. 6. DVT prophylaxis. Early ambulation. Continue bilateral knee-high CHI hose. 7. GI prophylaxis. Continue patient on PPI. 8. The consult we will follow the patient with you. Past Medical History Past Medical History: CVA/TIA, GERD/Reflux, Hyperlipidemia, Hypertension, Musculoskeletal Disorder, Osteoarthritis (OA), Thyroid Disorder Additional Past Medical History / Comment(s): Hx TIA'S, possible seizures long time ago. Hx "Severe concussion". Varicose veins. Hx "Arrythmia." DDD w/ ruptured discs back/neck. IBS. Pre-cancer cervix. Hx ulcer, hiatal hernia, thyroid nodules. Complains of being tired, weak, elevated liver count. Blood in urine/pain for a few months now. History of Any Multi-Drug Resistant Organisms: None Reported Past Surgical History: Breast Surgery, Cholecystectomy, Orthopedic Surgery, Tubal Ligation, Uterine Ablation Additional Past Surgical History / Comment(s): Surgery for twisted ureter, Left Elbow surgery, Left CTR, Left Rotator Cuff X2, Bilateral Breast Bx, Torn Left knee Meniscus, Deviated septum & sinus surgery, Pain procedures. COLONOSCOPY, EGD, BILAT CATARACTS REMOVED WITH LENS IMPLANTS Past Anesthesia/Blood Transfusion Reactions: Previous Problems w/ Anesthesia, Family History of Problems w/ Anesthesia, Motion Sickness Additional Past Anesthesia/Blood Transfusion Reaction / Comm: Claustrophobic, (Brother - has PONV) Hx after 1st pain clinic procedure had episode after getting home "felt like I was really high, could not walk, had to hold on to zhou"- lasted for hours. Past Psychological History: Anxiety, Depression, Panic Disorder, PTSD Additional Psychological History / Comment(s): borderline peronality disorder, major depressive disorder, suidical tendencies- has Counselor at [facility]STATES NO THOUGHTS OF HARMING SELF AT THIS TIME Smoking Status: Former smoker, Vaper Past Alcohol Use History: Rare Additional Past Alcohol Use History / Comment(s): SMOKING 1 PPD, STARTED SMOKING AGE 17, down to 1/2 ppd.-QUIT SMOKING SEP 2024-NOW VAPING NICOTINE Past Drug Use History: None Reported - Past Family History Father Family Medical History: Cancer, Coronary Artery Disease (CAD), CVA/TIA, Deep Vein Thrombosis (DVT) Additional Family Medical History / Comment(s): Skin Cancer; history of Alzheimer's disease, CAD, 4 vessel CABG, CVA. Mother History Unknown: Yes Additional Family Medical History / Comment(s): Mother is alive at age 83 with history of hypertension. Son(s) Additional Family Medical History / Comment(s): patient has 2 sons and one has Depression Daughter(s) Family Medical History: No Reported History Additional Family Medical History / Comment(s): Patient has one daughter with no major medical problems. Brother(s) Family Medical History: Cancer Additional Family Medical History / Comment(s): Sinus cancer w/ mets; patient has 5 brothers. One at age 27 from suicide. One has coronary artery disease status post 2 vessel CABG. Medications and Allergies Home Medications Medication Instructions Recorded Confirmed Type Metoprolol Succinate (ER) [Toprol 50 mg PO DAILY 11/06/17 11/03/24 History Xl] Acetaminophen [Tylenol Arthritis] 650 mg PO Q6H PRN 01/11/21 11/03/24 History Carboxymethylcellulos/Glycerin 1 drop BOTH EYES BID PRN 01/11/21 11/03/24 History [Refresh Relieva 0.5-0.9% Drop] Mv-Mn/Folic/Lutein/Herbal 293 1 tab PO DAILY 01/11/21 11/03/24 History [Alive Women's 50 Plus Vitamins] Omeprazole [PriLOSEC] 20 mg PO DAILY 01/11/21 11/03/24 History cycloSPORINE [Restasis] 1 applicator BOTH EYES BID 01/11/21 11/03/24 History Rosuvastatin Calcium 10 mg PO HS 11/20/21 11/03/24 History Baclofen 10 mg PO TID 07/17/22 11/03/24 History Erythromycin Ophth Oint [Romycin 1 applic BOTH EYES HS 07/17/22 11/03/24 History Ophth Oint] Fluticasone Nasal [place] [Flonase 1 spray EA NOSTRIL DAILY PRN 07/17/22 11/03/24 History Nasal [place]] Gabapentin [Neurontin] 300 mg PO HS 07/17/22 11/03/24 History Loratadine [Claritin] 10 mg PO DAILY 07/17/22 11/03/24 History lisinopriL [Zestril] 30 mg PO DAILY 07/17/22 11/03/24 History Ketorolac [Toradol] 10 mg PO Q6HR #15 tab 07/04/23 11/03/24 Rx Aspirin 325 mg PO DAILY 10/29/24 11/03/24 History Ibuprofen [Motrin Ib] 200 mg PO Q8H 10/29/24 11/03/24 History cloNIDine HCL [Catapres] 0.1 mg PO HS 10/29/24 11/03/24 History Allergies Allergy/AdvReac Type Severity Reaction Status Date / Time peanut Allergy Anaphylaxis Verified 11/03/24 06:29 Sulfa (Sulfonamide Allergy Vomiting Verified 11/03/24 06:29 Antibiotics) sumatriptan [From Imitrex] Allergy Anaphylaxis Verified 11/03/24 06:29 sumatriptan succinate Allergy Anaphylaxis Verified 11/03/24 06:29 [From Imitrex] tree nut [Nut] Allergy Anaphylaxis- Verified 11/03/24 06:29 ALL NUTS atorvastatin AdvReac insomnia Verified 11/03/24 06:29 Physical Exam Vitals: Vital Signs Temp Pulse Pulse Resp BP Pulse Ox 11/03/24 12:30 85 170/101 96 11/03/24 12:15 86 163/96 96 11/03/24 12:00 82 165/98 96 11/03/24 11:45 82 147/87 96 11/03/24 11:30 86 162/93 90 L 11/03/24 11:00 80 165/91 91 L 11/03/24 10:45 97.5 F L 75 148/83 91 L 11/03/24 10:16 79 16 138/77 99 11/03/24 10:00 75 16 131/78 99 11/03/24 09:45 73 16 155/81 99 11/03/24 09:30 70 14 143/83 99 11/03/24 09:22 97.1 F L 75 14 149/85 99 11/03/24 06:29 97.4 F L 62 16 135/63 99 Intake and Output 11/02/24 11/03/24 11/03/24 22:59 06:59 14:59 Intake Total 400 651 Output Total 100 Balance 400 551 Intake: IV 400 651 Output: Estimated Blood Loss 100 Other: Weight 77.5 kg 77.5 kg
[2024-11-04] MEDS: ASPIRIN 325 MG TAB PO SCH (07:25)
[2024-11-04] MEDS: LORATADINE 10 MG TAB PO SCH (07:25)
[2024-11-04] MEDS: PANTOPRAZOLE 40 MG TABLET PO SCH (07:25)
[2024-11-04] MEDS: MULTIVITAMINS, THERA 1 EACH TAB PO SCH (07:25)
[2024-11-04] MEDS: METOPROLOL SUCCINATE (ER) 50 MG TAB.ER.24H PO SCH (07:35)
[2024-11-04] MEDS: lisinopriL 10 MG TAB PO SCH (07:35)
[2024-11-04 08:05] VITALS: BP 106/63; PULSE 72; RESP 20; TEMP 99.1
[2024-11-04 08:45] LABS: ALT 17 U/L (8-44); AST 25 U/L (13-35); Alkaline Phosphatase 77 U/L (41-126); BUN/Creat Ratio 17.75 Ratio (12.00-20.00); Blood Urea Nitrogen 14.2 mg/dL (9.0-27.0); Calcium 9.3 mg/dL (8.7-10.3); Carbon Dioxide 25.9 mmol/L (21.6-31.8); Chloride 105 mmol/L (96-109); Globulin 2.1 g/dL (1.6-3.3); Glucose 113 mg/dL (70-110); Potassium 4.2 mmol/L (3.5-5.5); Sodium 141 mmol/L (135-145); Total Bilirubin 0.6 mg/dL (0.3-1.2); Total Protein 6.1 g/dL (6.2-8.2)
[2024-11-04 09:14] LABS: Basophils # (A) 0.03 X 10*3/uL (0.00-0.10); Basophils % (A) 0.2 %; Eosinophils # (A) 0.01 X 10*3/uL (0.04-0.35); Eosinophils % (A) 0.1 %; HCT 34.4 % (37.2-46.3); Lymphocytes # (A) 1.92 X 10*3/uL (0.90-5.00); Lymphocytes % (A) 14.6 %; MCH 30.2 pg (27.0-32.0); MCV 94.5 FL (80.0-97.0); Monocytes # (A) 0.87 X 10*3/uL (0.20-1.00); Monocytes % (A) 6.6 %; NRBC Per 100 WBC 0 X 10*3/uL (0.00-0.01); Neutrophils # (A) 10.23 X 10*3/uL (1.80-7.70); Platelet Count 305 X 10*3/uL (140-440); RBC 3.64 X 10*6/uL (4.10-5.20); RDW 12.3 % (11.5-14.5); WBC 13.12 X 10*3/uL (4.50-10.00)
--- NOTE | 2024-11-04 09:51 | P.PN ---
Subjective Progress Note Date: 11/04/24 HISTORY OF PRESENT ILLNESS: This is a 59-year-old female with a previous medical history signif icant for hypertension and hypertensive cardiovascular disease, mixed hyperlipidemia, history of TIA, history of carpal tunnel syndrome, history of cholelithiasis, history of degenerative disc disease of the lumbar spine as well as cervical spine, history of posttraumatic stress disorder, anxiety disorder depressive disorder, patient underwent anterior cervical discectomy with fusion of C5-C6 and C6 and C7 that was done successfully by Dr. Diaz and we were asked to see the patient for medical management patient apparently has had a panic attack after she woke up from anesthesia and she was feeling somewhat claustrophobic, requires 2 people to put her down, she was quite anxious and she stated that her posttraumatic stress disorder affected her patient was started back on her pain management, she was also started on Xanax 0.25 mg orally twice every day, she was evaluated the bedside and she was doing fine. 11/04: Patient sitting up in bed in no apparent distress, her pain is much better today, she atraumatic, she is ambulating very well, she has a soft collar in place, she has not seen by spine surgery yet, likely will be discharged home later on today, she continues to use incentive spirometer, increase activity, she did have a bowel movement, patient appears to be medically stable to be discharged if okay with spine surgery. REVIEW OF SYSTEMS: Constitutional: No documented fever, no chills, no night sweats. No weight change. No weakness, fatigue or lethargy. No daytime sleepiness. EENT: No headache. No blurred vision or double vision, no loss of vision. No loss of Hearing, no ringing in the ears, no dizziness. No nasal drainage or congestion. No epistaxis. No sore throat. Lungs: No shortness of breath, no cough, no sputum production. No wheezing. Reports dyspnea with activity. Cardiovascular: No chest pain, no lower extremity edema. No palpitations. No paroxysmal nocturnal dyspnea. No orthopnea. No lightheadedness or dizziness. No syncopal episodes. Abdominal: Reports no abdominal pain. No nausea, vomiting. No diarrhea. No constipation. No bloody or tarry stools reports loss of appetite. Genitourinary: No dysuria, increased frequency, urgency. No urinary retention. Musculoskeletal: No myalgias. No muscle weakness, no gait dysfunction, no frequent falls. No back pain. positive for neck pain. Integumentary: Neck wound is covered, no lesions. No rash or pruritus. No unusual bruising. No change in hair or nails. Neurologic: No aphasia. No facial droop. No change in mentation. No head injury. No headache. No paralysis. No paresthesia. Psychiatric: positive for depression. positive for anxiety. No mood swings. Endocrine: No abnormal blood sugars. No weight change. PHYSICAL EXAMINATION: General: 59-year-old female examined in bed in no distress. HEENT: Head is atraumatic, normocephalic, pupils were equal round reactive to light and recommendation, extraocular muscle movement were intact, sclera nonicteric, conjunctivae were pale, mucous membranes of the mouth are somewhat dry. Neck: Supple, no JVP, normal carotid upstroke bilaterally, no lymphadenopathy. Soft cervical collar. Chest: Decreased breath sounds at the bases, few rhonchi, no expiratory wheezes, no chest wall tenderness, no intercostal retractions. Heart: First heart sound is normal, second heart sounds normal Abdomen: Soft, nontender, nondistended, positive bowel sounds. Extremities: There is no edema no calf tenderness DP +2 bilaterally. Neurologic examination: Patient is awake alert and oriented x3, cranial nerves II-12 appear grossly intact, muscle power were 5 out of 5 in upper extremities and 5 out of 5 in bilateral lower extremities, deep tendon reflexes normal bilaterally. ASSESSMENT AND PLAN: 1. Postoperative day #1 status post ACDF of C5-C6 and C6 and C7. Continue incentive spirometer to reduce the incidence atelectasis and healthcare associated pneumonia, continue current pain management as outlined by spine s urgery, early ambulation, physical therapy evaluation in the next 24 hours. 2. Hypertension and hypertensive cardiovascular disease. Continue patient on metoprolol ER 50 mg once every day as well as lisinopril 30 mg once every day monitor the patient blood pressure very closely. 3. Mixed hyperlipidemia. Continue patient on atorvastatin 20 mg orally once every day. 4. Gastroesophageal flux disease please continue patient on Protonix 40 mg once every day. 5. Posttraumatic stress disorder/anxiety continue patient on Xanax 0.25 mg orally twice every day as needed, continue with clonidine 0.1 mg orally at bedtime. 6. DVT prophylaxis. Early ambulation. Continue bilateral knee-high CHI hose. 7. GI prophylaxis. Continue patient on PPI. 8. Patient is medically stable for discharge. Objective - Vital Signs Vital signs: Vital Signs Temp 99.1 F 11/04/24 07:10 Pulse 72 11/04/24 07:10 Resp 20 11/04/24 07:10 BP 106/63 11/04/24 07:10 Pulse Ox 98 11/04/24 07:10 FiO2 Intake & Output 11/03/24 11/04/24 11/04/24 18:59 06:59 18:59 Intake Total 651 Output Total 100 Balance 551 Weight 77.5 kg Intake: IV 651 Output: Estimated Blood Loss 100 Other: Voiding Method Toilet # Voids 2 3 - Labs CBC & Chem 7: 11/04/24 05:28 11/04/24 05:28 Labs: Abnormal Lab Results - Last 24 Hours (Table) 11/04/24 11/04/24 Range/Units 05:28 05:28 WBC 13.12 H (4.50-10.00) X 10*3/uL RBC 3.64 L (4.10-5.20) X 10*6/uL Hgb 11.0 L (12.0-15.0) g/dL Hct 34.4 L (37.2-46.3) % Immature Gran # 0.06 H (0.00-0.04) X 10*3/uL Neutrophils # 10.23 H (1.80-7.70) X 10*3/uL Eosinophils # 0.01 L (0.04-0.35) X 10*3/uL Glucose 113 H (70-110) mg/dL Total Protein 6.1 L (6.2-8.2) g/dL
--- NOTE | 2024-11-04 12:01 | P.DS ---
Providers Date of admission: 11/03/2024 Expected date of discharge: 11/04/24 Attending physician: Chevy Chua Consults: 11/03/24 12:29 Consult Physician Routine Consulting Provider: Melly Nunez Consult Reason/Comments: medical management Do you want consulting provider notified?: Yes Primary care physician: Melly Nunez - Discharge Diagnosis(es) (1) Status post cervical spinal fusion Current Visit: Yes Status: Acute (2) Radiculopathy affecting upper extremity Current Visit: Yes Status: Acute (3) Cervicalgia Current Visit: Yes Status: Acute (4) Cervical spinal stenosis Current Visit: Yes Status: Acute (5) Cervical herniated disc Current Visit: Yes Status: Acute (6) Degenerative cervical disc Current Visit: Yes Status: Acute (7) Anxiety Current Visit: Yes Status: Acute (8) PTSD (post-traumatic stress disorder) Current Visit: Yes Status: Acute (9) Hypertension Current Visit: Yes Status: Acute (10) Hyperlipidemia Current Visit: Yes Status: Acute (11) History of TIA (transient ischemic attack) Current Visit: Yes Status: Acute Hospital Course: This is a pleasant 59-year-old female who presented with C5-6 and C6-7 spinal stenosis and herniated nucleus pulposus with degenerative disc disease, cervicalgia, and right upper extremity radiculopathy who failed outpatient conservative therapy. She was admitted for a C5-6 and C6-7 anterior cervical decompression and fusion. Continues to have some pain radiating towards her right shoulder. Her cervical pain is adequately controlled. She has some swelling at the anterior cervical surgical site but her neck is soft. She has been able to eat and swallow without any significant difficulty. She feels her pain is apically controlled and feels ready for discharge. Condition on day of discharge stable. Patient will be discharged home. Patient was cleared preoperatively for surgery by Dr. Nunez who has been following the patient postoperatively in the hospital. Patient was having some anxiety postoperatively which she states was affected by her posttraumatic stress disorder. She was restarted on Xanax per medicine and she has significantly improved. She feels much better today. She has been cleared today by medicine for discharge home. Patient currently denies any nausea, vomiting, fever, or chills. Patient is eating and voiding freely without difficulty. Patient may shower Optifoam dressing intact. Patient may remove Optifoam dressing in 3 days and shower without a dressing at that time. Patient should refrain from driving until at least after their first follow-up appointment in the office. Patient should avoid excessive neck flexion, extension, rotation, and lateral sidebending; no overhead lifting; no lifting greater than 10 pounds. She may utilize a soft cervical collar for comfort and support as needed. MAPS has been reviewed today. An "Opiod Start Talking" Form has been signed and placed in the patient's chart. A prescription has been written for Stephens 5 mg / 325 mg, 1 tab, every 6 hours, as needed for acute pain, dispense #28. Prescription is sent to the [facility] pharmacy located within [facility]. She may continue with baclofen as previously prescribed which she states she has at home. She should avoid anti-inflammatory medications. Patient's other medical diagnoses include hypertension, hyperlipidemia, history of TIA, PTSD, and anxiety. Physical Exam on day of discharge: Patient is awake, alert, and oriented 3 Vital signs stable Good chest excursion with deep inspiration and expiration Adequate range of motion of the cervical spine with adequate flexion, extension, and bilateral rotation [employer] strength, thumb strength, interosseous strength, biceps strength, triceps strength, and shoulder strength positive sustained bilaterally Soft cervical collar intact Incision is clean, dry, and intact; no erythema, purulence, or signs of infection Some swelling around the anterior cervical surgical incision site which is soft to palpation. Optifoam dressing intact Procedures: C5-6 and C6-7 anterior cervical decompression and fusion Patient Condition at Discharge: Stable Plan - Discharge Summary Discharge Rx Participant: No New Discharge Prescriptions: New HYDROcodone/APAP 5-325MG [Stephens 5] 1 each PO Q6HR PRN #28 tab PRN Reason: Pain No Action Metoprolol Succinate (ER) [Toprol Xl] 50 mg PO DAILY cycloSPORINE [Restasis] 1 applicator BOTH EYES BID Carboxymethylcellulos/Glycerin [Refresh Relieva 0.5-0.9% Drop] 1 drop BOTH EYES BID PRN PRN Reason: Dry Eye(S) Rosuvastatin Calcium 10 mg PO HS Erythromycin Ophth Oint [Romycin Ophth Oint] 1 applic BOTH EYES HS Ketorolac [Toradol] 10 mg PO Q6HR #15 tab Aspirin 325 mg PO DAILY cloNIDine HCL [Catapres] 0.1 mg PO HS Ibuprofen [Motrin Ib] 200 mg PO Q8H Omeprazole [PriLOSEC] 20 mg PO DAILY Acetaminophen [Tylenol Arthritis] 650 mg PO Q6H PRN PRN Reason: Pain Mv-Mn/Folic/Lutein/Herbal 293 [Alive Women's 50 Plus Vitamins] 1 tab PO DAILY lisinopriL [Zestril] 30 mg PO DAILY Loratadine [Claritin] 10 mg PO DAILY Gabapentin [Neurontin] 300 mg PO HS Fluticasone Nasal [place] [Flonase Nasal [place]] 1 spray EA NOSTRIL DAILY PRN PRN Reason: Allergy Symptoms Baclofen 10 mg PO TID Discharge Medication List Metoprolol Succinate (ER) [Toprol Xl] 50 mg PO DAILY 11/06/17 [History] Acetaminophen [Tylenol Arthritis] 650 mg PO Q6H PRN 01/11/21 [History] Carboxymethylcellulos/Glycerin [Refresh Relieva 0.5-0.9% Drop] 1 drop BOTH EYES BID PRN 01/11/21 [History] Mv-Mn/Folic/Lutein/Herbal 293 [Alive Women's 50 Plus Vitamins] 1 tab PO DAILY 01/11/21 [History] Omeprazole [PriLOSEC] 20 mg PO DAILY 01/11/21 [History] cycloSPORINE [Restasis] 1 applicator BOTH EYES BID 01/11/21 [History] Rosuvastatin Calcium 10 mg PO HS 11/20/21 [History] Baclofen 10 mg PO TID 07/17/22 [History] Erythromycin Ophth Oint [Romycin Ophth Oint] 1 applic BOTH EYES HS 07/17/22 [History] Fluticasone Nasal [place] [Flonase Nasal [place]] 1 spray EA NOSTRIL DAILY PRN 1 09/16/21 [History] Gabapentin [Neurontin] 300 mg PO HS 07/17/22 [History] Loratadine [Claritin] 10 mg PO DAILY 07/17/22 [History] lisinopriL [Zestril] 30 mg PO DAILY 07/17/22 [History] Ketorolac [Toradol] 10 mg PO Q6HR #15 tab 07/04/23 [Rx] Aspirin 325 mg PO DAILY 10/29/24 [History] Ibuprofen [Motrin Ib] 200 mg PO Q8H 10/29/24 [History] cloNIDine HCL [Catapres] 0.1 mg PO HS 10/29/24 [History] HYDROcodone/APAP 5-325MG [Stephens 5] 1 each PO Q6HR PRN #28 tab 11/04/24 [Rx] Follow up Appointment(s)/Referral(s): Juan Pickett, WINIFRED [PHYSICIAN PRESIDENTIAL SUPPORT SPECIALIST] - 2 Weeks (Patient may follow-up with Juan Pickett PA-C or Dr. Santosh Chua at [facility] in 2-3 weeks following discharge. ) Activity/Diet/Wound Care/Special Instructions: 1. Patient may shower with Optifoam dressing intact. 2. Patient may remove Optifoam dressing in 3 days and shower without a dressing at that time. 3. Patient may wear soft cervical collar for comfort support as needed. 4. Patient should refrain from driving until at least after their first follow- up appointment in the office. 5. Patient should avoid excessive cervical flexion, extension, and side bending; avoid overhead lifting; no lifting greater than 10 pounds 6. Take medications as prescribed 7. Patient should avoid anti-inflammatory medications over the next 6 weeks postoperatively 8. Do not soak in tub l Discharge Disposition: HOME SELF-CARE
== END 2024-11-04 12:59 | disposition home or self-care (01) ==
LOC: OR 05:45 → 4SSUR 09:14 → OR 11-04 12:59
PROVIDERS: ATTEND Orthopaedic Surgery Orthopaedic Surgery of the Spine
DX: M48.02 Spinal stenosis, cervical region (principal); M50.122 Cervical disc disorder at C5-C6 level with radiculopathy; M50.123 Cervical disc disorder at C6-C7 level with radiculopathy; M50.322 Other cervical disc degeneration at C5-C6 level; Z79.82 Long term (current) use of aspirin; E78.2 Mixed hyperlipidemia; I11.9 Hypertensive heart disease without heart failure; Z86.73 Personal history of transient ischemic attack (TIA), and cerebral infarction without residual deficits; F41.9 Anxiety disorder, unspecified
CPT/HCPCS: 22551; 80053; 85025; 72020; C1713 ×2; C1762; J2250; J0330; J1100; J2710; J2765; J0690 ×2; J2405; J2003; J3010; J1171 ×2; J2704; J2371; J0665; J1596

== ENCOUNTER 2025-01-12 10:06 | Emergency (ER) | payer MEDICARE, OTHER ==
[2025-01-12 10:10] VITALS: RESP 20
[2025-01-12] MEDS: ACETAMINOPHEN TAB 500 MG TAB PO STA (10:39)
--- NOTE | 2025-01-12 10:40 | ED ---
Fall HPI - General Chief Complaint: Fall Stated Complaint: fall-head injury Time Seen by Provider: 01/12/25 10:22 Source: patient, RN notes reviewed Mode of arrival: wheelchair Limitations: no limitations - History of Present Illness Initial Comments: This is a 59-year-old female with history including CVA, hypertension and hyperlipidemia presenting for slip and fall backwards occurring 30 minutes prior to arrival. Patient states she was taking out her garbage when she had a slip and fall backwards onto the sidewalk, striking her head with subsequent neck pain and headache. Denies loss of consciousness or use of blood thinners. Patient also endorses pain in her right wrist and shoulder. Patient endorses concern regarding neck pain due to recent neck surgery performed by Dr. Chua. Denies upper/lower extremity weakness, paresthesia, dizziness, visual changes, nausea/vomiting. 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 Fall Witnessed: no Place Fall Occurred: street Loss of Consciousness: none Prolonged Down Time?: no Symptoms Prior to Fall: none Location: head, neck Location - Extremities: Left: Shoulder, Right: Shoulder Severity scale (1-10): 8 Context: tripped/slipped Associated Symptoms: headache, neck pain - Related Data Home Medications Medication Instructions Recorded Confirmed Metoprolol Succinate (ER) [Toprol 50 mg PO DAILY 11/06/17 11/03/24 Xl] Acetaminophen [Tylenol Arthritis] 650 mg PO Q6H PRN 01/11/21 11/03/24 Carboxymethylcellulos/Glycerin 1 drop BOTH EYES BID PRN 01/11/21 11/03/24 [Refresh Relieva 0.5-0.9% Drop] Mv-Mn/Folic/Lutein/Herbal 293 1 tab PO DAILY 01/11/21 11/03/24 [Alive Women's 50 Plus Vitamins] Omeprazole [PriLOSEC] 20 mg PO DAILY 01/11/21 11/03/24 cycloSPORINE [Restasis] 1 applicator BOTH EYES BID 01/11/21 11/03/24 Rosuvastatin Calcium 10 mg PO HS 11/20/21 11/03/24 Baclofen 10 mg PO TID 07/17/22 11/03/24 Erythromycin Ophth Oint [Romycin 1 applic BOTH EYES HS 07/17/22 11/03/24 Ophth Oint] Fluticasone Nasal Gardner [Flonase 1 spray EA NOSTRIL DAILY PRN 07/17/22 11/03/24 Nasal Gardner] Gabapentin [Neurontin] 300 mg PO HS 07/17/22 11/03/24 Loratadine [Claritin] 10 mg PO DAILY 07/17/22 11/03/24 lisinopriL [Zestril] 30 mg PO DAILY 07/17/22 11/03/24 Aspirin 325 mg PO DAILY 10/29/24 11/03/24 Ibuprofen [Motrin Ib] 200 mg PO Q8H 10/29/24 11/03/24 cloNIDine HCL [Catapres] 0.1 mg PO HS 10/29/24 11/03/24 Previous Rx's Medication Instructions Recorded Ketorolac [Toradol] 10 mg PO Q6HR #15 tab 07/04/23 HYDROcodone/APAP 5-325MG [Potter 5] 1 each PO Q6HR PRN #28 tab 11/04/24 Allergies Allergy/AdvReac Type Severity Reaction Status Date / Time peanut Allergy Anaphylaxis Verified 01/12/25 10:10 Sulfa (Sulfonamide Allergy Vomiting Verified 01/12/25 10:10 Antibiotics) sumatriptan [From Imitrex] Allergy Anaphylaxis Verified 01/12/25 10:10 sumatriptan succinate Allergy Anaphylaxis Verified 01/12/25 10:10 [From Imitrex] tree nut [Nut] Allergy Anaphylaxis- Verified 01/12/25 10:10 ALL NUTS atorvastatin AdvReac insomnia Verified 01/12/25 10:10 Review of Systems ROS Statement: Those systems with pertinent positive or pertinent negative responses have been documented in the HPI. ROS Other: All systems not noted in ROS Statement are negative. Past Medical History Past Medical History: CVA/TIA, GERD/Reflux, Hyperlipidemia, Hypertension, Musculoskeletal Disorder, Osteoarthritis (OA), Thyroid Disorder Additional Past Medical History / Comment(s): Hx TIA'S, possible seizures long time ago. Hx "Severe concussion". Varicose veins. Hx "Arrythmia." DDD w/ ruptured discs back/neck. IBS. Pre-cancer cervix. Hx ulcer, hiatal hernia, thyroid nodules. Complains of being tired, weak, elevated liver count. Blood in urine/pain for a few months now. History of Any Multi-Drug Resistant Organisms: None Reported Past Surgical History: Breast Surgery, Cholecystectomy, Orthopedic Surgery, Tubal Ligation, Uterine Ablation Additional Past Surgical History / Comment(s): Surgery for twisted ureter, Left Elbow surgery, Left CTR, Left Rotator Cuff X2, Bilateral Breast Bx, Torn Left knee Meniscus, Deviated septum & sinus surgery, Pain procedures. Past Anesthesia/Blood Transfusion Reactions: Previous Problems w/ Anesthesia, Family History of Problems w/ Anesthesia, Motion Sickness Additional Past Anesthesia/Blood Transfusion Reaction / Comment(s): Claustrophobic, (Brother - has PONV) Hx after 1st pain clinic procedure had episode after getting home "felt like I was really high, could not walk, had to hold on to zhou"- lasted for hours. Past Psychological History: Anxiety, Depression, Panic Disorder, PTSD Smoking Status: Current every day smoker Past Alcohol Use History: None Reported - Past Family History Father Family Medical History: Cancer, Coronary Artery Disease (CAD), CVA/TIA, Deep Vein Thrombosis (DVT) Additional Family Medical History / Comment(s): Skin Cancer; history of Alzheimer's disease, CAD, 4 vessel CABG, CVA. Mother History Unknown: Yes Additional Family Medical History / Comment(s): Mother is alive at age 83 with history of hypertension. Son(s) Additional Family Medical History / Comment(s): patient has 2 sons and one has Depression Daughter(s) Family Medical History: No Reported History Additional Family Medical History / Comment(s): Patient has one daughter with no major medical problems. Brother(s) Family Medical History: Cancer Additional Family Medical History / Comment(s): Sinus cancer w/ mets; patient has 5 brothers. One at age 27 from suicide. One has coronary artery disease status post 2 vessel CABG. General Exam Limitations: no limitations General appearance: alert, in distress Head exam: Present: normocephalic, other (Positive for occipital skull TTP without obvious open wound, depression, hematoma. Negative Pantoja sign) Eye exam: Present: normal appearance, PERRL, EOMI, other (Negative raccoon eyes). Absent: scleral icterus, conjunctival injection, periorbital swelling Pupils: Present: normal accommodation ENT exam: Present: normal exam, normal oropharynx, mucous membranes moist, TM's normal bilaterally (Negative hemotympanum) Neck exam: Present: normal inspection. Absent: tenderness, meningismus, lymphadenopathy Respiratory exam: Present: normal lung sounds bilaterally. Absent: respiratory distress, wheezes, rales, rhonchi, stridor, chest wall tenderness, accessory muscle use, decreased breath sounds, prolonged expiratory Cardiovascular Exam: Present: regular rate, normal rhythm, normal heart sounds. Absent: systolic murmur, diastolic murmur, rubs, gallop, clicks GI/Abdominal exam: Present: soft, normal bowel sounds. Absent: distended, tenderness, guarding, rebound, rigid Extremities exam: Present: normal inspection, full ROM, tenderness (Positive bilateral scapula TTP, especially on right side. Negative crepitus, deformity. Bilateral upper extremity FROM), normal capillary refill, other (Positive right shoulder Teixeira sign. 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 Negative bilateral empty can, apprehension, belly press, liftoff. Negative LUE Teixeira sign.). Absent: pedal edema, joint swelling, calf tenderness Back exam: Present: vertebral tenderness (Positive cervical spine tenderness without obvious crepitus or step-off. Negative thoracic/lumbar spine tenderness, crepitus, step-off). Absent: full ROM, paraspinal tenderness Neurological exam: Present: alert, oriented X3, CN II-XII intact (Cranial nerves, except cranial nerve XI, tested and intact) Psychiatric exam: Present: normal affect, normal mood Skin exam: Present: warm, dry, intact, normal color. Absent: rash Course Vital Signs 01/12/25 01/12/25 10:07 11:09 Temperature 97.9 F 97.9 F Pulse Rate 98 73 Respiratory 20 20 Rate Blood Pressure 188/96 156/84 O2 Sat by Pulse 97 97 Oximetry Medical Decision Making - Medical Decision Making Was pt. sent in by a medical professional or institution (, PA, MORTGAGE LOAN COORDINATOR, urgent care, hospital, or group home...) When possible be specific @ -[No] Did you speak to anyone other than the patient for history (EMS, parent, family, police, friend...)? What history was obtained from this source @ -[No] Did you review nursing and triage notes (agree or disagree)? Why? @ -[I reviewed and agree with nursing and triage notes] Were old charts reviewed (outside hosp., previous admission, EMS record, old EKG, old radiological studies, urgent care reports/EKG's, group home records)? Report findings @ -[No old charts were reviewed] Differential Diagnosis (chest pain, altered mental status, abdominal pain women, abdominal pain men, vaginal bleeding, weakness, fever, dyspnea, syncope, headache, dizziness, GI bleed, back pain, seizure, CVA, palpatations, mental health, musculoskeletal)? @ -Differential Musculoskeletal Muscular strain, contusion, ligament sprain, fracture, arthritis, septic arthr itis, bursitis, cellulitis, muscle spasm, nerve compression, DVT, arterial occlusion, herpes zoster, electrolyte abnormality, tumor.... This is not meant to be in all inclusive list EKG interpreted by me (3pts min.). @ -Not done X-rays interpreted by me (1pt min.). @ -[None done] CT interpreted by me (1pt min.). @ -[None done] U/S interpreted by me (1pt. min.). @ -[None done] What testing was considered but not performed or refused? (CT, X-rays, U/S, labs)? Why? @ -[None] What meds were considered but not given or refused? Why? @ -Patient declined IM morphine for pain Did you discuss the management of the patient with other professionals (professionals i.e. , PA, MORTGAGE LOAN COORDINATOR, lab, RT, psych nurse, licensed clinical social worker, senior staff consultant, teacher, child support case officer, returned case inspector)? Give summary @ -[No] Was smoking cessation discussed for >3mins.? @ -[No] Was critical care preformed (if so, how long)? @ -[No] Were there social determinants of health that impacted care today? How? (Homelessness, low income, unemployed, alcoholism, drug addiction, transportation, low edu. Level, literacy, decrease access to med. care, long-term, rehab)? @ -[No] Was there de-escalation of care discussed even if they declined (Discuss DNR or withdrawal of care, Hospice)? DNR status @ -[No] What co-morbidities impacted this encounter? (DM, HTN, Smoking, COPD, CAD, Cancer, CVA, ARF, Chemo, Hep., AIDS, mental health diagnosis, sleep apnea, morbid obesity)? @ -[None] Was patient admitted / discharged? Hospital course, mention meds given and route, prescriptions, significant lab abnormalities, going to OR and other pertinent info. @ -[hospital course] Undiagnosed new problem with uncertain prognosis? @ -[No] Drug Therapy requiring intensive monitoring for toxicity (Heparin, Nitro, Insulin, Cardizem)? @ -[No] Were any procedures done? @ -[No] Diagnosis/symptom? @ -Concussion without loss of consciousness Acute, or Chronic, or Acute on Chronic? @ -Acute Uncomplicated (without systemic symptoms) or Complicated (systemic symptoms)? @ -Uncomplicated Side effects of treatment? @ -[No] Exacerbation, Progression, or Severe Exacerbation? @ -[No] Poses a threat to life or bodily function? How? (Chest pain, USA, SD, pneumonia, PE, COPD, DKA, ARF, appy, cholecystitis, CVA, Diverticulitis, Homicidal, Suicidal, threat to staff... and all critical care pts) @ -[No] Disposition Clinical Impression: Fall, Concussion without loss of consciousness Disposition: HOME SELF-CARE Condition: Fair Instructions (If sedation given, give patient instructions): Concussion (ED) Additional Instructions: Return to ER if experiencing worsening headache, neck pain, extremity numbness/weakness, vision changes, dizziness, altered mental status, altered level of consciousness, nausea/vomiting. Alternate Tylenol/Motrin every 4 hours for pain. Follow-up with PCP, Dr. Chua for ongoing evaluation and management. Is patient prescribed a controlled substance at d/c from ED?: No Referrals: Melly Nunez MD [Primary Care Provider] - 1-2 days Chevy Chua DO [Doctor of Osteopathic Medicine] - 1-2 days Time of Disposition: 11:26
--- NOTE | 2025-01-12 11:09 | XR ---
EXAMINATION TYPE: XR scapula bilateral DATE OF EXAM: 01/12/2025 COMPARISON: NONE CLINICAL INDICATION: Female, 59 years old with history of Fall onto back, TTP; TECHNIQUE: 2 views of the bilateral scapula FINDINGS: No acute displaced fracture in either scapula. Surgical changes from rotator cuff surgery l eft humeral head are present. Visualized ribs are intact bilaterally. IMPRESSION: As above. [facility], Workstation: [id number], 01/12/2025 11:07 AM
--- NOTE | 2025-01-12 11:15 | CT ---
EXAMINATION TYPE: CT brain cspine wo con DATE OF EXAM: 01/12/2025 COMPARISON: CT brain July 17, 2022. CT cervical spine 2018 CLINICAL INDICATION: Female, 59 years old with history of pain, Fall. C-spine surgery x2mo ago. C/O h ead and neck pain. Does take aspirin., TECHNIQUE: CT scan of the head and cervical spine are performed without contrast. CT DLP: 1263.9 mGycm. Automated Exposure Control for Dose Reduction was Utilized. FINDINGS: There is no acute intracranial hemorrhage, mass effect, or midline shift identified. The ventricles and sulci are within normal limits in size. Hale-white matter differentiation is preserv ed. The calvarium is intact. Bilateral aphakia is now seen. The visualized sinuses are clear. Cervical spine is visualized in its entirety from C1 through upper thoracic levels and redemonstrate scoliotic curvature without evidence of acute fracture or dislocation. Prevertebral soft tissue appe ars within normal limits. The C1-C2 articulation is within normal limits on the coronal images. The re is Postsurgical change with metallic disc spacers and anterior fusion plate C5-C7 levels. Slight grade 1 retrolisthesis C5 on C6 is seen. Vertebral body heights and disc space heights are maintained above and below surgical levels. Lung apices are clear without pneumothorax. Thyroid gland is suspicious fo r greater than 1 cm left-sided thyroid nodule coronal image 27. Nonemergent thyroid ultrasound follow -up is advised to further evaluate if this is not known finding. IMPRESSION: 1. There is no acute fracture or dislocation evident in the cervical spine. 2. No acute intracranial hemorrhage or midline shift is seen. [facility], , 01/12/2025 11:12 AM
[2025-01-12] MEDS: IBUPROFEN 600 MG TAB PO STA (11:48)
[2025-01-12 11:58] VITALS: BP 136/76; PULSE 76; TEMP 98.1
== END 2025-01-12 14:39 | disposition home or self-care (01) ==
LOC: EC 10:06
DX: S06.0X0A Concussion without loss of consciousness, initial encounter (principal); F17.200 Nicotine dependence, unspecified, uncomplicated; Z91.010 Allergy to peanuts; Z88.2 Allergy status to sulfonamides; Z91.018 Allergy to other foods; Z88.8 Allergy status to other drugs, medicaments and biological substances; Z79.82 Long term (current) use of aspirin; W01.0XXA Fall on same level from slipping, tripping and stumbling without subsequent striking against object, initial encounter; Y92.410 Unspecified street and highway as the place of occurrence of the external cause
CPT/HCPCS: 70450; 72125; 99284